=== PATIENT | male | born 1950 | race Caucasian/White ===

== ENCOUNTER 2016-06-14 16:41 | Observation (INO) ==
--- NOTE | 2016-06-14 17:16 | Emergency Department Note ---
Disposition Clinical Impression: Acute blood loss anemia, Hypotension due to blood loss Puncture wound of left upper extremity with complication Qualifiers: Encounter type: initial encounter Qualified Code(s): S41.132A - Puncture wound without foreign body of left upper arm, initial encounter Disposition: Admitted As Inpatient Condition: Good General Adult HPI - General Chief complaint: UC Nontraumatic Extremity Problem Stated complaint: left arm injury Time Seen by Provider: 06/14/16 17:12 Source: patient, EMS Limitations: no limitations - History of Present Illness HPI Narrative: 65-year-old male brought to the ED by EMS after falling from a pickup truck. He fell about 4 feet to the ground and a lawn aerator fell onto him puncturing his left posterior arm. Most of his pain is in the left posterior arm but also some pain in the lateral left chest. Denies any injury to his head. No abdominal pain. There was a small amount of blood loss at the scene. He denies any weakness or numbness of his arm. 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 Radiation: non-radiation Pain Severity: moderate Pain Scale: 4 Quality: stabbing Consistency: constant Improves with: nothing Worsens with: nothing Associated symptoms: Denies: confusion, chest pain, cough, diaphoresis, headaches, nausea/vomiting Treatments Prior to Arrival: none - Related Data Home Medications Medication Instructions Recorded Confirmed Aspirin 81 mg PO DAILY 10/02/14 06/15/16 Insulin Glargine,Hum.rec.anlog 20 - 40 unit SQ QAM PRN 10/02/14 06/15/16 [Lantus Solostar] Insulin Glargine,Hum.rec.anlog 45 - 50 unit SQ HS 10/02/14 06/15/16 [Lantus Solostar] Metformin [Glucophage] 1,000 mg PO BIDWM 10/02/14 06/15/16 Budesonide/Formoterol 160/4.5 2 puff IH BIDR PRN 07/30/15 06/15/16 [Symbicort 160/4.5] Furosemide [Lasix] 20 mg PO DAILY 08/10/15 06/15/16 Multivit-Min/FA/Lycopen/Lutein 1 each PO DAILY 08/10/15 06/15/16 [Centrum Silver Tablet] Naproxen Sodium [Aleve] 220 mg PO AD PRN 08/10/15 06/15/16 Niacin 100 mg PO DAILY 08/10/15 06/15/16 Ubidecarenone [Co Q10] 60 mg PO DAILY 08/10/15 06/15/16 Allergy Eye Drops BID 06/15/16 Cetirizine HCl [Zyrtec] 10 mg PO DAILY 06/15/16 06/15/16 Previous Rx's Medication Instructions Recorded Albuterol Sulfate [Albuterol 1 - 2 puff IH Q4HR PRN #1 12/15/14 Inhaler] hfa.aer.ad Prochlorperazine Maleate 10 mg PO Q6HR PRN #60 tablet 08/17/15 [Compazine] Guaifenesin/Codeine Phosphate 5 - 10 ml PO Q6H PRN #240 ml 02/12/16 [Guaifen-Codeine 100-10 mg/5 ml] Allergies Allergy/AdvReac Type Severity Reaction Status Date / Time MADHAVI Inhibitors Allergy Muscle Pain Verified 05/12/16 12:05 [id number]-Vdd-Utu Reductase Allergy Muscle Pain Verified 05/12/16 12:05 Inhibitor [Statins] All systems ED: reviewed and negative except as stated. Constitutional: Denies: fever Cardiovascular: Denies: palpitations Respiratory: Denies: cough, dyspnea Gastrointestinal: Denies: abdominal pain, nausea, vomiting Musculoskeletal: Denies: back pain Past Medical History - Past Medical History Attestation: Yes The following information was validated with the patient. Medical history: Reports: arthritis, coronary artery disease, diabetes Surgical history: Reports: appendectomy, pacemaker Psychiatric history: Reports: no psych history - Social History Smoking Status: Unknown if ever smoked Smokeless Tobacco Status: No Alcohol use: Reports: occasionally Drug use: Reports: none Physical Exam - General Limitations: no limitations General appearance: alert - Head Head exam: atraumatic, normocephalic - Eye Eye exam: Present: normal appearance - ENT ENT exam: normal exam, normal oropharynx - Neck Neck exam: Present: normal inspection - Chest Chest inspection: Present: normal inspection, symmetric chest wall rise - Respiratory Respiratory exam: Present: normal lung sounds bilaterally. Absent: respiratory distress - Cardiovascular Cardiovascular exam: Present: regular rate - Abdominal Exam Abdominal exam: Present: soft, Non-Tender, normal bowel sounds. Absent: tenderness - Extremities Exam Extremities exam: Present: other (Puncture wound to left upper posterior brachium which is actively bleeding. No palpable deformities. Distal pulses are brisk. Normal sensation throughout the forearm and hand.) - Back Exam Back exam: Present: normal inspection. Absent: tenderness, CVA tenderness (R), CVA tenderness (L) - Neurological Exam Neurological exam: Present: alert, oriented X3 - Psychiatric Psychiatric exam: Present: normal affect, normal mood - Skin Skin exam: Present: warm, dry Course - Reevaluation(s) Reevaluation #1: About 20 minutes after arrival patient became pale, slightly diaphoretic and became hypotensive. He maintained a paced rhythm of 70 during that time. Blood pressure improved with crystalloid infusion. Bleeding was controlled that time. Hemoglobin was checked and found to be 10.2 which is 2 g lower than it was 2 weeks ago. He was given additional IV fluids but still had additional episodes of brief hypotension. Follow-up hemoglobin about an hour and 40 minutes after the first and was down to 9.6. He has not had a third episode of hypotension so we will proceed with CT of his chest and abdomen to evaluate for further hemorrhagic issues. Patient adamantly believes that hypotension is secondary to the fact he had not eaten. Time: 21:24 Vital Signs Temperature 97.4 F L 06/14/16 16:43 Pulse Rate 79 06/14/16 16:43 Respiratory Rate 18 06/14/16 16:43 Blood Pressure 138/83 06/14/16 16:43 O2 Sat by Pulse Oximetry 96 06/14/16 16:43 Temperature 97.7 F 06/15/16 06:43 Pulse Rate 77 06/15/16 06:43 Respiratory Rate 18 06/15/16 06:43 Blood Pressure 117/66 06/15/16 06:43 O2 Sat by Pulse Oximetry 97 06/15/16 06:43 Oxygen Delivery Oxygen Delivery Nasal Cannula Medical Decision Making - Lab Data Result diagrams: 06/15/16 06:53 06/15/16 03:25 Lab Results 06/14/16 06/14/16 06/14/16 Range/Units 17:46 18:52 18:52 WBC 7.1 (4.3-11.1) K/mcL RBC 3.66 L (4.19-5.50) M/mcL Hgb 10.1 L (12.9-16.9) g/dL Hct 29.3 L (37.5-50.1) % MCV 80.1 L (83.0-100.0) fL MCH 27.6 L (28.0-33.3) pg MCHC 34.5 (31.6-35.5) g/dL RDW 12.9 (11.5-14.5) % Plt Count 156 (140-400) K/mcL MPV 8.7 L (9.4-12.4) fL Immature Gran % 0.8 (0-4) % Seg Neutrophils % 83.5 % Lymphocytes % 4.1 % Monocytes % 7.8 % Eosinophils % 3.4 % Basophils % 0.4 % Neutrophils # 5.9 (1.6-8.9) K/mcL Lymphocytes # 0.3 L (0.6-4.6) K/mcL Monocytes # 0.6 (0.0-1.3) K/mcL Eosinophils # 0.2 (0.0-0.6) K/mcL Basophils # 0.0 (0.0-0.2) K/mcL PT (9.4-12.1) Seconds INR APTT (26.0-36.0) Seconds Sodium (136-145) mEq/L Potassium (3.5-4.5) mEq/L Chloride (98-109) mEq/L Carbon Dioxide (19-29) mEq/L BUN (8-26) mg/dL Creatinine (0.72-1.25) mg/dL Est GFR ( Amer) (> 60) Est GFR (Non-Af Amer) (> 60) BUN/Creatinine Ratio (6-26) Glucose (70-99) mg/dL POC Glucose 248 H (58-89) Calculated Osmolality (280-300) Calcium (8.6-10.8) mg/dL Blood Type A NEGATIVE Antibody Screen NEGATIVE 06/14/16 06/14/16 06/14/16 Range/Units 18:52 18:52 20:29 WBC (4.3-11.1) K/mcL RBC (4.19-5.50) M/mcL Hgb 9.6 L (12.9-16.9) g/dL Hct 27.9 L (37.5-50.1) % MCV (83.0-100.0) fL MCH (28.0-33.3) pg MCHC (31.6-35.5) g/dL RDW (11.5-14.5) % Plt Count (140-400) K/mcL MPV (9.4-12.4) fL Immature Gran % (0-4) % Seg Neutrophils % % Lymphocytes % % Monocytes % % Eosinophils % % Basophils % % Neutrophils # (1.6-8.9) K/mcL Lymphocytes # (0.6-4.6) K/mcL Monocytes # (0.0-1.3) K/mcL Eosinophils # (0.0-0.6) K/mcL Basophils # (0.0-0.2) K/mcL PT 11.0 (9.4-12.1) Seconds INR 1.0 APTT 31.2 (26.0-36.0) Seconds Sodium 135 L (136-145) mEq/L Potassium 3.9 (3.5-4.5) mEq/L Chloride 102 (98-109) mEq/L Carbon Dioxide 24 (19-29) mEq/L BUN 20 (8-26) mg/dL Creatinine 1.03 (0.72-1.25) mg/dL Est GFR ( Amer) > 60 (> 60) Est GFR (Non-Af Amer) > 60 (> 60) BUN/Creatinine Ratio 19 (6-26) Glucose 209 H (70-99) mg/dL POC Glucose (58-89) Calculated Osmolality 289 (280-300) Calcium 8.5 L (8.6-10.8) mg/dL Blood Type Antibody Screen 06/14/16 Range/Units 21:28 WBC (4.3-11.1) K/mcL RBC (4.19-5.50) M/mcL Hgb (12.9-16.9) g/dL Hct (37.5-50.1) % MCV (83.0-100.0) fL MCH (28.0-33.3) pg MCHC (31.6-35.5) g/dL RDW (11.5-14.5) % Plt Count (140-400) K/mcL MPV (9.4-12.4) fL Immature Gran % (0-4) % Seg Neutrophils % % Lymphocytes % % Monocytes % % Eosinophils % % Basophils % % Neutrophils # (1.6-8.9) K/mcL Lymphocytes # (0.6-4.6) K/mcL Monocytes # (0.0-1.3) K/mcL Eosinophils # (0.0-0.6) K/mcL Basophils # (0.0-0.2) K/mcL PT (9.4-12.1) Seconds INR APTT (26.0-36.0) Seconds Sodium (136-145) mEq/L Potassium (3.5-4.5) mEq/L Chloride (98-109) mEq/L Carbon Dioxide (19-29) mEq/L BUN (8-26) mg/dL Creatinine (0.72-1.25) mg/dL Est GFR ( Amer) (> 60) Est GFR (Non-Af Amer) (> 60) BUN/Creatinine Ratio (6-26) Glucose (70-99) mg/dL POC Glucose 181 H (58-89) Calculated Osmolality (280-300) Calcium (8.6-10.8) mg/dL Blood Type Antibody Screen
[2016-06-14] MEDS ORDERED: *HR* HYDROcodone/Acet 5/325 mg TABLET PO ONE (17:22)
[2016-06-14] MEDS ORDERED: Tdap (ADACEL) Vaccine 0.5 ML IM ONE (17:26)
--- NOTE | 2016-06-14 18:17 | Emergency Department Note ---
Disposition Clinical Impression: Acute blood loss anemia, Hypotension due to blood loss Puncture wound of left upper extremity with complication Qualifiers: Encounter type: initial encounter Qualified Code(s): S41.132A - Puncture wound without foreign body of left upper arm, initial encounter Disposition: Admitted As Inpatient Condition: Good Time of Disposition: 22:03 Trauma HPI - General Chief Complaint: UC Nontraumatic Extremity Problem Stated Complaint: left arm injury Time Seen by Provider: 06/14/16 17:12 Source: patient, EMS Limitations: no limitations Nursing Notes Reviewed: Yes Vital Signs Reviewed: Yes - History of Present Illness HPI Narrative: Patient is a 65-year-old male who fell while getting out of a truck earlier today. Patient states that he from which spikes on a use for long care fell and rolled onto his left side causing a puncture wound to posterior shoulder/ proximal brachium area by 6 cm spike. 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 Home Medications Medication Instructions Recorded Confirmed Aspirin 81 mg PO DAILY 10/02/14 06/15/16 Insulin Glargine,Hum.rec.anlog 20 - 40 unit SQ QAM PRN 10/02/14 06/15/16 [Lantus Solostar] Insulin Glargine,Hum.rec.anlog 45 - 50 unit SQ HS 10/02/14 06/15/16 [Lantus Solostar] Metformin [Glucophage] 1,000 mg PO BIDWM 10/02/14 06/15/16 Budesonide/Formoterol 160/4.5 2 puff IH BIDR PRN 07/30/15 06/15/16 [Symbicort 160/4.5] Furosemide [Lasix] 20 mg PO DAILY 08/10/15 06/15/16 Multivit-Min/FA/Lycopen/Lutein 1 each PO DAILY 08/10/15 06/15/16 [Centrum Silver Tablet] Naproxen Sodium [Aleve] 220 mg PO AD PRN 08/10/15 06/15/16 Niacin 100 mg PO DAILY 08/10/15 06/15/16 Ubidecarenone [Co Q10] 60 mg PO DAILY 08/10/15 06/15/16 Allergy Eye Drops BID 06/15/16 Cetirizine HCl [Zyrtec] 10 mg PO DAILY 06/15/16 06/15/16 Previous Rx's Medication Instructions Recorded Albuterol Sulfate [Albuterol 1 - 2 puff IH Q4HR PRN #1 12/15/14 Inhaler] hfa.aer.ad Prochlorperazine Maleate 10 mg PO Q6HR PRN #60 tablet 08/17/15 [Compazine] Guaifenesin/Codeine Phosphate 5 - 10 ml PO Q6H PRN #240 ml 02/12/16 [Guaifen-Codeine 100-10 mg/5 ml] Allergies Allergy/AdvReac Type Severity Reaction Status Date / Time MADHAVI Inhibitors Allergy Muscle Pain Verified 05/12/16 12:05 [id number]-Pnz-Tdi Reductase Allergy Muscle Pain Verified 05/12/16 12:05 Inhibitor [Statins] All systems ED: reviewed and negative except as stated. Constitutional: Denies: fever, chills, weakness Eyes: Denies: vision change ENT ED: Denies: ear pain, congestion Cardiovascular: Reports: chest pain. Denies: palpitations Respiratory: Denies: cough, dyspnea, wheezes Gastrointestinal: Denies: abdominal pain, nausea, vomiting, diarrhea Genitourinary: Denies: urgency, frequency, hematuria Musculoskeletal: Denies: back pain Integumentary: Denies: rash Neurological: Denies: headache, weakness Psychiatric: Denies: anxiety Endocrine: Denies: fatigue Hematological/Lymphatic: Denies: easy bleeding Past Medical History - Past Medical History Attestation: Yes The following information was validated with the patient. Source: patient Medical history: Reports: arthritis, coronary artery disease, diabetes Surgical history: Reports: appendectomy, pacemaker Psychiatric history: Reports: no psych history - Social History Smoking Status: Unknown if ever smoked Smokeless Tobacco Status: No Alcohol use: Reports: occasionally Drug use: Reports: none Physical Exam Vital Signs Temperature 97.4 F L 06/14/16 16:43 Pulse Rate 79 06/14/16 16:43 Respiratory Rate 18 06/14/16 16:43 Blood Pressure 138/83 06/14/16 16:43 O2 Sat by Pulse Oximetry 96 06/14/16 16:43 Temperature 97.4 F L 06/14/16 16:43 Pulse Rate 71 06/14/16 21:38 Respiratory Rate 18 06/14/16 21:38 Blood Pressure 137/78 06/14/16 21:38 O2 Sat by Pulse Oximetry 98 06/14/16 21:38 Oxygen Delivery Oxygen Delivery Nasal Cannula -General Appearance: Patient is a 65-year-old male who is alert and oriented 3 in no acute distress. Patient has dried blood across his chest and left upper extremity from where he exsanguinated -Neurological exam: Cranial nerves II-12 intact, no focal deficits observed, strength equal 5/5 bilaterally in upper and lower extremities, cerebellar motion test negative. Negative loss of sensation - Head Head exam: atraumatic, normocephalic, normal inspection - Eye Eye exam: Present: normal appearance, PERRL, EOMI, negative for scleral icterus negative for conjunctival pallor - ENT ENT exam: normal exam, normal oropharynx, mucous membranes moist - Neck Neck exam: Present: normal inspection, full ROM, trachea midline, negative JVD - Chest Chest inspection: Present: Patient has bilateral equal rise and fall of chest wall. Tender to palpation along the l left midaxillary line and anterior to midaxillary line along the left chest wall - Respiratory Respiratory exam: Patient has mild rails to auscultation bilateral lower lung jones Cardiovascular Cardiovascular exam: Present: regular rate, normal rhythm, normal heart sounds, without murmurs rubs or gallops. - Abdominal Exam Abdominal exam: Present: soft, nondistended, Non-Tender light and deep palpation in all quadrants. Bowel sounds normoactive throughout all 4 quadrants. Negative for hyper or hyperresonance. - Extremities Exam Extremities exam: Present: normal inspection, full ROM patient has a 2.5 mm oval entry for puncture wound by a 6 cm spike into his posterior left upper brachia/deltoid area wound is very deep. - Back Exam Back exam: Present: normal inspection, full ROM. - Psychiatric Psychiatric exam: Present: normal affect, normal mood - Skin Skin exam: Present: warm, dry, intact, normal color - General Limitations: no limitations General appearance: alert Course - Reevaluation(s) Reevaluation #1: Patient is concerning for for pneumothorax, fractures, neurovascular damage, acute blood loss anemia X-rays will be taken of patient's shoulder, ribs, chest, hemostasis will be controlled with pressure dressings, wound will be inspected, irrigated Time: 17:22 Reevaluation #2: Placed pressure bandage on patient's wound Time: 18:17 Reevaluation #3: Patient appeared to have a vagal episode and a drop in blood pressure. IV normal saline bolus administered, CBC already drawn Time: 18:22 Additional Reevaluation(s): Patient's CT was unremarkable shows only a stable pleural effusion: Chest CTA 06/14/16 20:53 IMPRESSION: No evidence for acute traumatic injury to the chest, abdomen or pelvis. No evidence for aortic aneurysm or dissection. Stable large right pleural effusion. Stable perihilar soft tissue prominence, right more than left, which may be on the basis of posttreatment change. No discrete masses or pulmonary nodules identified. Attention can be paid on follow-up. Stable shotty mediastinal lymph nodes. No lymphadenopathy by CT measurement criteria. Current recommendation is to admit patient to hospital. Patient will be updated , patient does except admission, patient will be admitted to hospital for further evaluation and trending of immobility and hematocrit to monitor for further blood loss. Vital Signs Temperature 97.4 F L 06/14/16 16:43 Pulse Rate 79 06/14/16 16:43 Respiratory Rate 18 06/14/16 16:43 Blood Pressure 138/83 06/14/16 16:43 O2 Sat by Pulse Oximetry 96 06/14/16 16:43 Temperature 97.7 F 06/15/16 06:43 Pulse Rate 77 06/15/16 06:43 Respiratory Rate 18 06/15/16 06:43 Blood Pressure 117/66 06/15/16 06:43 O2 Sat by Pulse Oximetry 97 06/15/16 06:43 Oxygen Delivery Oxygen Delivery Nasal Cannula Procedures - Laceration Laceration 1 Site: upper extremity Side (If applicable): left Size (cm): 2 Description: other Depth: involves muscle layer Local Anesthetic: lidocaine 2% Amount of Anesthesia Used (mL): 8 Pre-repair: wound explored, irrigated extensively, wound margins revised Skin layer closed with: vicryl Size: 4-0 Number of sutures/angel: 2 Technique: simple, interrupted, horizontal mattress Trauma - Lab Data Lab results reviewed: Yes I reviewed the patient's lab results. Lab results narrative: Short CBC 06/14/16 06/14/16 Range/Units 20:29 18:52 WBC 7.1 (4.3-11.1) K/mcL Hgb 9.6 L 10.1 L (12.9-16.9) g/dL Hct 27.9 L 29.3 L (37.5-50.1) % Plt Count 156 (140-400) K/mcL Neutrophils # 5.9 (1.6-8.9) K/mcL Result diagrams: 06/15/16 06:53 06/15/16 03:25 Lab Results 06/14/16 06/14/16 06/14/16 Range/Units 17:46 18:52 18:52 WBC 7.1 (4.3-11.1) K/mcL RBC 3.66 L (4.19-5.50) M/mcL Hgb 10.1 L (12.9-16.9) g/dL Hct 29.3 L (37.5-50.1) % MCV 80.1 L (83.0-100.0) fL MCH 27.6 L (28.0-33.3) pg MCHC 34.5 (31.6-35.5) g/dL RDW 12.9 (11.5-14.5) % Plt Count 156 (140-400) K/mcL MPV 8.7 L (9.4-12.4) fL Immature Gran % 0.8 (0-4) % Seg Neutrophils % 83.5 % Lymphocytes % 4.1 % Monocytes % 7.8 % Eosinophils % 3.4 % Basophils % 0.4 % Neutrophils # 5.9 (1.6-8.9) K/mcL Lymphocytes # 0.3 L (0.6-4.6) K/mcL Monocytes # 0.6 (0.0-1.3) K/mcL Eosinophils # 0.2 (0.0-0.6) K/mcL Basophils # 0.0 (0.0-0.2) K/mcL PT (9.4-12.1) Seconds INR APTT (26.0-36.0) Seconds Sodium (136-145) mEq/L Potassium (3.5-4.5) mEq/L Chloride (98-109) mEq/L Carbon Dioxide (19-29) mEq/L BUN (8-26) mg/dL Creatinine (0.72-1.25) mg/dL Est GFR ( Amer) (> 60) Est GFR (Non-Af Amer) (> 60) BUN/Creatinine Ratio (6-26) Glucose (70-99) mg/dL POC Glucose 248 H (58-89) Calculated Osmolality (280-300) Calcium (8.6-10.8) mg/dL Blood Type A NEGATIVE Antibody Screen NEGATIVE 06/14/16 06/14/16 06/14/16 Range/Units 18:52 18:52 20:29 WBC (4.3-11.1) K/mcL RBC (4.19-5.50) M/mcL Hgb 9.6 L (12.9-16.9) g/dL Hct 27.9 L (37.5-50.1) % MCV (83.0-100.0) fL MCH (28.0-33.3) pg MCHC (31.6-35.5) g/dL RDW (11.5-14.5) % Plt Count (140-400) K/mcL MPV (9.4-12.4) fL Immature Gran % (0-4) % Seg Neutrophils % % Lymphocytes % % Monocytes % % Eosinophils % % Basophils % % Neutrophils # (1.6-8.9) K/mcL Lymphocytes # (0.6-4.6) K/mcL Monocytes # (0.0-1.3) K/mcL Eosinophils # (0.0-0.6) K/mcL Basophils # (0.0-0.2) K/mcL PT 11.0 (9.4-12.1) Seconds INR 1.0 APTT 31.2 (26.0-36.0) Seconds Sodium 135 L (136-145) mEq/L Potassium 3.9 (3.5-4.5) mEq/L Chloride 102 (98-109) mEq/L Carbon Dioxide 24 (19-29) mEq/L BUN 20 (8-26) mg/dL Creatinine 1.03 (0.72-1.25) mg/dL Est GFR ( Amer) > 60 (> 60) Est GFR (Non-Af Amer) > 60 (> 60) BUN/Creatinine Ratio 19 (6-26) Glucose 209 H (70-99) mg/dL POC Glucose (58-89) Calculated Osmolality 289 (280-300) Calcium 8.5 L (8.6-10.8) mg/dL Blood Type Antibody Screen 06/14/16 Range/Units 21:28 WBC (4.3-11.1) K/mcL RBC (4.19-5.50) M/mcL Hgb (12.9-16.9) g/dL Hct (37.5-50.1) % MCV (83.0-100.0) fL MCH (28.0-33.3) pg MCHC (31.6-35.5) g/dL RDW (11.5-14.5) % Plt Count (140-400) K/mcL MPV (9.4-12.4) fL Immature Gran % (0-4) % Seg Neutrophils % % Lymphocytes % % Monocytes % % Eosinophils % % Basophils % % Neutrophils # (1.6-8.9) K/mcL Lymphocytes # (0.6-4.6) K/mcL Monocytes # (0.0-1.3) K/mcL Eosinophils # (0.0-0.6) K/mcL Basophils # (0.0-0.2) K/mcL PT (9.4-12.1) Seconds INR APTT (26.0-36.0) Seconds Sodium (136-145) mEq/L Potassium (3.5-4.5) mEq/L Chloride (98-109) mEq/L Carbon Dioxide (19-29) mEq/L BUN (8-26) mg/dL Creatinine (0.72-1.25) mg/dL Est GFR ( Amer) (> 60) Est GFR (Non-Af Amer) (> 60) BUN/Creatinine Ratio (6-26) Glucose (70-99) mg/dL POC Glucose 181 H (58-89) Calculated Osmolality (280-300) Calcium (8.6-10.8) mg/dL Blood Type Antibody Screen - Radiology Data Radiology results reviewed: Yes I reviewed the patient's radiology results. Chest X-Ray 06/14/16 17:21 IMPRESSION: Overall stable findings including moderate to large right pleural effusion right mid and lower lung airspace disease. D/ / Fanny Arce Cha, MD / Fanny Arce Cha, MD Interpreting Provider: Fanny Arce Cha, MD Shoulder X-Ray 06/14/16 17:21 IMPRESSION: No acute abnormalities are seen. Stable mild degenerative changes to the AC joint. Diffuse bone demineralization. D/ / 06/14/2016 17:52:44 Ezekiel Griggs MD / kim Interpreting Provider: Ezekiel Griggs MD Thoracic Spine X-Ray 06/14/16 17:21 IMPRESSION: 1. No acute osseous abnormality of the thoracic spine identified. 2. Multilevel spondylosis. D/ / Nilo Muniz MD / Nilo Muniz MD Interpreting Provider: Nilo Muniz MD Abdomen/Pelvis CTA 06/14/16 20:53 IMPRESSION: No evidence for acute traumatic injury to the chest, abdomen or pelvis. No evidence for aortic aneurysm or dissection. Stable large right pleural effusion. Stable perihilar soft tissue prominence, right more than left, which may be on the basis of posttreatment change. No discrete masses or pulmonary nodules identified. Attention can be paid on follow-up. Stable shotty mediastinal lymph nodes. No lymphadenopathy by CT measurement criteria. D/ /14/2016 23:05:32 Ezekiel Griggs MD / kim Interpreting Provider: Ezekiel Griggs MD Chest CTA 06/14/16 20:53 IMPRESSION: No evidence for acute traumatic injury to the chest, abdomen or pelvis. No evidence for aortic aneurysm or dissection. Stable large right pleural effusion. Stable perihilar soft tissue prominence, right more than left, which may be on the basis of posttreatment change. No discrete masses or pulmonary nodules identified. Attention can be paid on follow-up. Stable shotty mediastinal lymph nodes. No lymphadenopathy by CT measurement criteria. D/ /14/2016 23:05:32 Ezekiel Griggs MD / kim Interpreting Provider: Ezekiel Griggs MD S.B.A.R. - S.B.A.RJuly Transition of Care: Chest the care to admit patient to hospital for further workup and trending of hemoglobin and hematocrits Situation: Demographics, MOA Background: Presenting Complaint, Relevant PMH, Meds, & Allergies Assessment: Vital Signs, Course and respsone to treatment, Exam Concerns, Patient/Family Expectation, Pertinant Lab Results, Outstanding Labs Recommendation: Barrier(s) to disposition, Recommendation based on pending studies, treatments, or consults Alisa Report Given to: Dr. Lili Cuellar Repor Time: 23:10 Attestation Statement - Attestation Attestation: I examined this patient and my medical decision-making was reviewed with the ALUM OPERATOR/PA/Advanced Practice Nurse/Resident Physician. I agree with the documented findings, disposition and treatment plan as described except to the extent set forth below.
[2016-06-14] MEDS ORDERED: 0.9 % Sodium Chloride 500 ML ONE (18:21)
[2016-06-14] MEDS ORDERED: 0.9 % Sodium Chloride 500 ML IVC ONE (18:22)
[2016-06-14] MEDS ORDERED: Ondansetron 4 MG/2 ML VIAL ONE (18:24)
[2016-06-14] MEDS ORDERED: 0.9 % Sodium Chloride 1,000 ML ONE (18:57)
[2016-06-14 19:03] LABS: Basophils % 0.4 %; Eosinophils # 0.2 K/mcL (0.0-0.6); Eosinophils % 3.4 %; Hematocrit 29.3 % (37.5-50.1); Hemoglobin 10.1 g/dL (12.9-16.9); Immature Granulocytes % 0.8 % (0-4); Lymphocytes # 0.3 K/mcL (0.6-4.6); Lymphocytes % 4.1 %; Mean Corpuscular HGB Conc 34.5 g/dL (31.6-35.5); Mean Corpuscular Hemoglobin 27.6 pg (28.0-33.3); Mean Corpuscular Volume 80.1 fL (83.0-100.0); Mean Platelet Volume 8.7 fL (9.4-12.4); Monocytes # 0.6 K/mcL (0.0-1.3); Monocytes % 7.8 %; Neutrophils # 5.9 K/mcL (1.6-8.9); Platelet Count 156 K/mcL (140-400); Red Blood Count 3.66 M/mcL (4.19-5.50); Red Cell Distribution Width 12.9 % (11.5-14.5); Segmented Neutrophils % 83.5 %
[2016-06-14] MEDS ORDERED: Lidocaine -MPF 2% 5 ML VIAL INFILT ONE (20:02)
[2016-06-14] MEDS ORDERED: 0.9 % Sodium Chloride 1,000 ML IVC ONE ×2 (20:04→20:51)
[2016-06-14 20:36] LABS: Hematocrit 27.9 % (37.5-50.1); Hemoglobin 9.6 g/dL (12.9-16.9)
[2016-06-14 23:26] LABS: Activated Partial Thrombo Time 31.2 Seconds (26.0-36.0); BUN/Creatinine Ratio 19 (6-26); Blood Urea Nitrogen 20 mg/dL (8-26); Calcium 8.5 mg/dL (8.6-10.8); Carbon Dioxide 24 mEq/L (19-29); Chloride 102 mEq/L (98-109); Glucose 209 mg/dL (70-99); Osmolality,Calculated 289 (280-300); Potassium 3.9 mEq/L (3.5-4.5); Sodium 135 mEq/L (136-145); eGFR For African Americans > 60 (> 60); eGFR For Non-African Americans > 60 (> 60)
[2016-06-15] MEDS ORDERED: *HR* HYDROcodone/Acet 5/325 mg TABLET PO ONE (00:40)
--- NOTE | 2016-06-15 00:41 | Emergency Department Note ---
Disposition Clinical Impression: Acute blood loss anemia, Hypotension due to blood loss Puncture wound of left upper extremity with complication Qualifiers: Encounter type: initial encounter Qualified Code(s): S41.132A - Puncture wound without foreign body of left upper arm, initial encounter Disposition: Admitted As Inpatient Condition: Good Time of Disposition: 00:45 General Adult HPI - General Chief complaint: UC Nontraumatic Extremity Problem Stated complaint: left arm injury Time Seen by Provider: 06/14/16 17:12 Source: patient, EMS Limitations: no limitations - History of Present Illness HPI Narrative: Please see prior providers documentation. For complete history and physical. Location: left Pain Scale: 7 Quality: stabbing Improves with: nothing Worsens with: nothing Associated symptoms: Denies: confusion, chest pain, cough, diaphoresis, headaches, nausea/vomiting Treatments Prior to Arrival: none - Related Data Home Medications Medication Instructions Recorded Confirmed Aspirin 81 mg PO DAILY 10/02/14 05/12/16 Insulin Glargine,Hum.rec.anlog 20 - 40 unit SQ QAM PRN 10/02/14 05/12/16 [Lantus Solostar] Insulin Glargine,Hum.rec.anlog 45 - 50 unit SQ HS 10/02/14 05/12/16 [Lantus Solostar] Metformin [Glucophage] 1,000 mg PO BIDWM 10/02/14 05/12/16 Budesonide/Formoterol 160/4.5 2 puff IH BIDR PRN 07/30/15 05/12/16 [Symbicort 160/4.5] Furosemide [Lasix] 20 mg PO DAILY 08/10/15 05/12/16 Multivit-Min/FA/Lycopen/Lutein 1 each PO DAILY 08/10/15 05/12/16 [Centrum Silver Tablet] Naproxen Sodium [Aleve] 220 mg PO AD PRN 08/10/15 05/12/16 Niacin 100 mg PO DAILY 08/10/15 05/12/16 Ubidecarenone [Co Q10] 60 mg PO DAILY 08/10/15 05/12/16 Previous Rx's Medication Instructions Recorded Albuterol Sulfate [Albuterol 1 - 2 puff IH Q4HR PRN #1 12/15/14 Inhaler] hfa.aer.ad Prochlorperazine Maleate 10 mg PO Q6HR PRN #60 tablet 08/17/15 [Compazine] Guaifenesin/Codeine Phosphate 5 - 10 ml PO Q6H PRN #240 ml 02/12/16 [Guaifen-Codeine 100-10 mg/5 ml] Allergies Allergy/AdvReac Type Severity Reaction Status Date / Time MADHAVI Inhibitors Allergy Muscle Pain Verified 05/12/16 12:05 Ryhkjlp-Qnk-Lxl Reductase Allergy Muscle Pain Verified 05/12/16 12:05 Inhibitor [Statins] Constitutional: Denies: fever, chills, weakness Eyes: Denies: vision change ENT ED: Denies: ear pain, congestion Cardiovascular: Reports: chest pain. Denies: palpitations Respiratory: Denies: cough, dyspnea, wheezes Gastrointestinal: Denies: abdominal pain, nausea, vomiting, diarrhea Genitourinary: Denies: urgency, frequency, hematuria Musculoskeletal: Denies: back pain Integumentary: Denies: rash Neurological: Denies: headache, weakness Psychiatric: Denies: anxiety Endocrine: Denies: fatigue Hematological/Lymphatic: Denies: easy bleeding Past Medical History - Past Medical History Medical history: Reports: arthritis, coronary artery disease, diabetes Surgical history: Reports: appendectomy, pacemaker Psychiatric history: Reports: no psych history - Social History Smoking Status: Unknown if ever smoked Smokeless Tobacco Status: No Alcohol use: Reports: occasionally Drug use: Reports: none Physical Exam - General Limitations: no limitations General appearance: alert Course Course Narrative: Patient seen and examined. Patient is in no acute distress. Patient will be admitted to the hospitalist service for trending hemoglobins. - Reevaluation(s) Reevaluation #1: Patient is in no acute distress. Time: 00:41 Vital Signs Temperature 97.4 F L 06/14/16 16:43 Pulse Rate 79 06/14/16 16:43 Respiratory Rate 18 06/14/16 16:43 Blood Pressure 138/83 06/14/16 16:43 O2 Sat by Pulse Oximetry 96 06/14/16 16:43 Temperature 97.4 F L 06/14/16 16:43 Pulse Rate 73 06/14/16 23:52 Respiratory Rate 18 06/15/16 01:09 Blood Pressure 109/58 06/15/16 01:09 O2 Sat by Pulse Oximetry 99 06/14/16 23:52 Oxygen Delivery Oxygen Delivery Nasal Cannula Medical Decision Making - [facility] Narrative Medical decision making narrative: 65-year-old male presents after a fall and subsequent puncture injury to his left arm. Patient's left arm was irrigated and dressed with the prior provider. No active bleeding. Patient's left arm is soft compartments. Patient has a bounding left radial pulse. Patient's neurovascularly intact. Patient had imaging of the left shoulder, chest and thoracic spine. Patient became hypotensive twice during his emergency department stay and responded with IV fluid hydration. Given the patient's hypotension during his emergency department stay as well as his recent acute loss and hemoglobin the patient will be admitted in the hospital service for further monitoring and trending H&H 's. Patient's had a CTA of the chest abdomen and pelvis was does not show any acute abnormality. Patient does have a large right pleural effusion which is unchanged. Patient does not show any signs of respiratory distress. Patient's tetanus was updated. - Lab Data Lab results reviewed: Yes I reviewed the patient's lab results. Result diagrams: 06/14/16 20:29 06/14/16 18:52 Lab Results 06/14/16 06/14/16 06/14/16 Range/Units 17:46 18:52 18:52 WBC 7.1 (4.3-11.1) K/mcL RBC 3.66 L (4.19-5.50) M/mcL Hgb 10.1 L (12.9-16.9) g/dL Hct 29.3 L (37.5-50.1) % MCV 80.1 L (83.0-100.0) fL MCH 27.6 L (28.0-33.3) pg MCHC 34.5 (31.6-35.5) g/dL RDW 12.9 (11.5-14.5) % Plt Count 156 (140-400) K/mcL MPV 8.7 L (9.4-12.4) fL Immature Gran % 0.8 (0-4) % Seg Neutrophils % 83.5 % Lymphocytes % 4.1 % Monocytes % 7.8 % Eosinophils % 3.4 % Basophils % 0.4 % Neutrophils # 5.9 (1.6-8.9) K/mcL Lymphocytes # 0.3 L (0.6-4.6) K/mcL Monocytes # 0.6 (0.0-1.3) K/mcL Eosinophils # 0.2 (0.0-0.6) K/mcL Basophils # 0.0 (0.0-0.2) K/mcL PT (9.4-12.1) Seconds INR APTT (26.0-36.0) Seconds Sodium (136-145) mEq/L Potassium (3.5-4.5) mEq/L Chloride (98-109) mEq/L Carbon Dioxide (19-29) mEq/L BUN (8-26) mg/dL Creatinine (0.72-1.25) mg/dL Est GFR ( Amer) (> 60) Est GFR (Non-Af Amer) (> 60) BUN/Creatinine Ratio (6-26) Glucose (70-99) mg/dL POC Glucose 248 H (58-89) Calculated Osmolality (280-300) Calcium (8.6-10.8) mg/dL Blood Type A NEGATIVE Antibody Screen NEGATIVE 06/14/16 06/14/16 06/14/16 Range/Units 18:52 18:52 20:29 WBC (4.3-11.1) K/mcL RBC (4.19-5.50) M/mcL Hgb 9.6 L (12.9-16.9) g/dL Hct 27.9 L (37.5-50.1) % MCV (83.0-100.0) fL MCH (28.0-33.3) pg MCHC (31.6-35.5) g/dL RDW (11.5-14.5) % Plt Count (140-400) K/mcL MPV (9.4-12.4) fL Immature Gran % (0-4) % Seg Neutrophils % % Lymphocytes % % Monocytes % % Eosinophils % % Basophils % % Neutrophils # (1.6-8.9) K/mcL Lymphocytes # (0.6-4.6) K/mcL Monocytes # (0.0-1.3) K/mcL Eosinophils # (0.0-0.6) K/mcL Basophils # (0.0-0.2) K/mcL PT 11.0 (9.4-12.1) Seconds INR 1.0 APTT 31.2 (26.0-36.0) Seconds Sodium 135 L (136-145) mEq/L Potassium 3.9 (3.5-4.5) mEq/L Chloride 102 (98-109) mEq/L Carbon Dioxide 24 (19-29) mEq/L BUN 20 (8-26) mg/dL Creatinine 1.03 (0.72-1.25) mg/dL Est GFR ( Amer) > 60 (> 60) Est GFR (Non-Af Amer) > 60 (> 60) BUN/Creatinine Ratio 19 (6-26) Glucose 209 H (70-99) mg/dL POC Glucose (58-89) Calculated Osmolality 289 (280-300) Calcium 8.5 L (8.6-10.8) mg/dL Blood Type Antibody Screen 06/14/16 Range/Units 21:28 WBC (4.3-11.1) K/mcL RBC (4.19-5.50) M/mcL Hgb (12.9-16.9) g/dL Hct (37.5-50.1) % MCV (83.0-100.0) fL MCH (28.0-33.3) pg MCHC (31.6-35.5) g/dL RDW (11.5-14.5) % Plt Count (140-400) K/mcL MPV (9.4-12.4) fL Immature Gran % (0-4) % Seg Neutrophils % % Lymphocytes % % Monocytes % % Eosinophils % % Basophils % % Neutrophils # (1.6-8.9) K/mcL Lymphocytes # (0.6-4.6) K/mcL Monocytes # (0.0-1.3) K/mcL Eosinophils # (0.0-0.6) K/mcL Basophils # (0.0-0.2) K/mcL PT (9.4-12.1) Seconds INR APTT (26.0-36.0) Seconds Sodium (136-145) mEq/L Potassium (3.5-4.5) mEq/L Chloride (98-109) mEq/L Carbon Dioxide (19-29) mEq/L BUN (8-26) mg/dL Creatinine (0.72-1.25) mg/dL Est GFR ( Amer) (> 60) Est GFR (Non-Af Amer) (> 60) BUN/Creatinine Ratio (6-26) Glucose (70-99) mg/dL POC Glucose 181 H (58-89) Calculated Osmolality (280-300) Calcium (8.6-10.8) mg/dL Blood Type Antibody Screen - Radiology Data Radiology results reviewed: Yes I reviewed the patient's radiology results. Chest X-Ray 06/14/16 17:21 IMPRESSION: Overall stable findings including moderate to large right pleural effusion right mid and lower lung airspace disease. D/ / Fanny Arce Cha, MD / Fanny Arce Cha, MD Interpreting Provider: Fanny Arce Cha, MD Shoulder X-Ray 06/14/16 17:21 IMPRESSION: No acute abnormalities are seen. Stable mild degenerative changes to the AC joint. Diffuse bone demineralization. D/ / 06/14/2016 17:52:44 Ezekiel Griggs MD / kim Interpreting Provider: Ezekiel Griggs MD Thoracic Spine X-Ray 06/14/16 17:21 IMPRESSION: 1. No acute osseous abnormality of the thoracic spine identified. 2. Multilevel spondylosis. D/ / Nilo Muniz MD / Nilo Muniz MD Interpreting Provider: Nilo Muniz MD Abdomen/Pelvis CTA 06/14/16 20:53 IMPRESSION: No evidence for acute traumatic injury to the chest, abdomen or pelvis. No evidence for aortic aneurysm or dissection. Stable large right pleural effusion. Stable perihilar soft tissue prominence, right more than left, which may be on the basis of posttreatment change. No discrete masses or pulmonary nodules identified. Attention can be paid on follow-up. Stable shotty mediastinal lymph nodes. No lymphadenopathy by CT measurement criteria. D/ / 06/14/2016 23:05:32 Ezekiel Griggs MD / kim Interpreting Provider: Ezekiel Griggs MD Chest CTA 06/14/16 20:53 IMPRESSION: No evidence for acute traumatic injury to the chest, abdomen or pelvis. No evidence for aortic aneurysm or dissection. Stable large right pleural effusion. Stable perihilar soft tissue prominence, right more than left, which may be on the basis of posttreatment change. No discrete masses or pulmonary nodules identified. Attention can be paid on follow-up. Stable shotty mediastinal lymph nodes. No lymphadenopathy by CT measurement criteria. D/ / 06/14/2016 23:05:32 Ezekiel Griggs MD / kim Interpreting Provider: Ezekiel Griggs MD S.BSarah - S.BJulyAKatherine Situation: Demographics Background: Presenting Complaint, Relevant PMH, Meds, & Allergies Assessment: Vital Signs, Course and respsone to treatment, Patient/Family Expectation, Pertinant Lab Results Recommendation: Barrier(s) to disposition, Recommendation based on pending studies, treatments, or consults S.[id number].RJuly Report Given to: Dr. Sebas Cuellar Repor Time: 00:41 Attestation Statement - Attestation Attestation: I, Fransisco Richard MD, personally evaluated this patient and discussed their management with the resident physician. I reviewed the resident's note and agree with the documented findings, medical decision making, and plan of care. This patient was signed out at shift change from Dr. Norwood and Dr. Crook. Please refer to their notes for complete details of history and physical examination. At shift change we are just awaiting the hospitalist to return call for admission. The hospitalist, Dr. Mullen, was consulted and accepted admission of the patient.
[2016-06-15] MEDS ORDERED: 0.9 % Sodium Chloride 1,000 ML IVC SCH (01:30)
[2016-06-15] MEDS ORDERED: Budesonide/Formoterol 160/4.5 MDI IH PRN (03:19)
--- NOTE | 2016-06-15 03:19 | Internal Med History&Physical ---
<Olga Davies - Last Filed: 06/15/16 04:17> Date of Encounter: 06/15/16 Time of Encounter: 02:00 Assessment and Plan (1) Microcytic anemia Current visit: Yes Status: Acute - Hgb 10.1 on initial presentation, which is a significant drop from 12.1 on . MCV 80. - Likely secondary to acute blood loss from the puncture injury of left upper arm but patient may also have other underlying causes such as iron deficiency or GI bleed. - Latest Hgb at 8.7. The continuous drop is likely dilutional given his WBC and platelet count also decreased as patient received 2L bolus and 125 cc/hr maintenance NS. - Will hold IV NS for now. - Check Iron panel and ferritin for possible underlying iron deficiency. - Check stool occult blood test to evaluate for possible GI blood loss. - Continue to monitor H&H closely. (2) Hypotension due to blood loss Current visit: Yes Status: Acute - BP as low as 81/54 in ED. - Responsive to IV fluid. - Improves as latest BP 143/74. - Okay to hold IV NS for now. - Closely monitor VS. (3) Puncture wound of left upper extremity with complication Current visit: Yes Status: Acute - Puncture wound by spike on yard roller. - Patient had received Tdap shot and suture in ED. - Continue to monitor for any potential bleeding/hematoma. Qualifiers: Encounter type: initial encounter Qualified Code(s): S41.132A - Puncture wound without foreign body of left upper arm, initial encounter (4) Diabetes mellitus Current visit: No Status: Chronic - Insulin sliding scale with routine glucose monitoring. - Diabetic diet. 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 - Per patient, he was told by oncology that he is in remission. - Stable right pleural effusion per chest imagings. Internal Medicine - H&P: HPI Chief complaint: left arm injury Admitted From: Emergency Dept Plans for Post Hospital Care: Home History of present illness: Mr. Vela is a 65 year old male with PMH of pulmonary MALT lymphoma s/p 5 cycles of chemo (last one in 01/2016) with stable right pleural effusion, DM and history of 3rd degree heart block current on pacemaker. Patient tripped while unloading yard roller from truck and landed on ground while the yard roller fell on his left upper arm resulting puncture wound by the spike on the yard roller. Patient reports potential loss of significant amount of blood at the scene. Patient was sent to [place] ED where patient got Tdap shoot with the wound cleaned and sutured. Patient was noted to have Hgb 10.1, which is a drop from 12.1 a week ago. Patient was also noted to have episodes of hypotension as low as 81/54 but responsive to IV NS. Patient received 2L IV NS bolus in ED and currently on 125 cc/hr. Of the encounter on the hospital floor, patient reports left upper arm pain and left chest wall muscle pain. Patient denies shortness of breath, lightheadedness, syncope, fever, chills, new numbness/tingling, focal weakness, hematochezia, melena, hematuria. Patient denies easily bleeding problem and his only blood thinner is baby aspirin. Patient reports last colonoscopy was more than 5 years with multiple polyps removed. Patient reports having scheduled appointment with his PCP Dr. Oliver next Thursday to discuss due colonoscopy. Patient is full code. Past Med Surg Social Fam HX - Past Medical History Medical history: arthritis, cancer (Pulmonary MALT lymphoma), coronary artery disease, diabetes Psychiatric history: no psych history - Past Surgical History Surgical History: appendectomy, pacemaker - Social History Smoking Status: Former smoker Smokeless Tobacco Status: No Alcohol use: occasionally Drug use: none - Family History Father Age: 49 Living Status: Hx Family Cancer: Yes (pancreatic ca) Mother Living Status: Age at : 94 Hx Family Cancer: Yes (colon ca) Hx Family Endocrine Disorder: Yes (diabetes) Sister Living Status: Still Living Hx Family Endocrine Disorder: Yes (dm) Hx Family Musculoskeletal Disorders: Yes (knee and hip replacement) Brother Age: 65 Living Status: Still Living Hx Family Cardiac Disorders: Yes (open heart surgery) Hx Family HEENT Disorders: Yes (ringing in ears) Internal Medicine - H&P: Meds Aspirin 81 mg PO DAILY 10/02/14 [History] Insulin Glargine,Hum.rec.anlog [Lantus Solostar] 20 - 40 unit SQ QAM PRN [History] Insulin Glargine,Hum.rec.anlog [Lantus Solostar] 45 - 50 unit SQ HS 10/02/14 [ History] Metformin [Glucophage] 1,000 mg PO BIDWM 10/02/14 [History] Albuterol Sulfate [Albuterol Inhaler] 1 - 2 puff IH Q4HR PRN #1 hfa.aer.ad 12/15 [Rx] Budesonide/Formoterol 160/4.5 [Symbicort 160/4.5] 2 puff IH BIDR PRN 07/30/15 [ History] Furosemide [Lasix] 20 mg PO DAILY 08/10/15 [History] Multivit-Min/FA/Lycopen/Lutein [Centrum Silver Tablet] 1 each PO DAILY 08/10/15 [History] Naproxen Sodium [Aleve] 220 mg PO AD PRN 08/10/15 [History] Niacin 100 mg PO DAILY 08/10/15 [History] Ubidecarenone [Co Q10] 60 mg PO DAILY 08/10/15 [History] Prochlorperazine Maleate [Compazine] 10 mg PO Q6HR PRN #60 tablet 08/17/15 [Rx] Guaifenesin/Codeine Phosphate [Guaifen-Codeine 100-10 mg/5 ml] 5 - 10 ml PO Q6H PRN #240 ml 02/12/16 [Rx] Allergy Eye Drops BID 06/15/16 [History] Cetirizine HCl [Zyrtec] 10 mg PO DAILY 06/15/16 [History] Allergies MADHAVI Inhibitors Allergy (Verified 05/12/16 12:05) Muscle Pain Izxnvom-Flb-Fbi Reductase Inhibitor [Statins] Allergy (Verified 05/12/16 12:05) Muscle Pain All Systems PM: A 10-system review of systems was performed and is negative for pertinent findings except as documented above in the HPI. - Constitutional Constitutional: no anorexia, no chills, no fever(s) - EENT Eyes: no change in vision Ears: no decreased hearing Nose, mouth and throat: no dysphagia, no odynophagia - Cardiovascular Cardiovascular ROS IM: edema (Chronic bilateral lower extremity edema), no chest pain, no lightheadedness, no syncope - Respiratory Respiratory: no cough, no dyspnea, no hemoptysis - Gastrointestinal Gastrointestinal: nausea (Earlier in ED), no diarrhea, no hematochezia, no melena, no vomiting - Genitourinary Genitourinary ROS male: no difficulty urinating, no dysuria, no hematuria - Musculoskeletal Musculoskeletal ROS IM: as per HPI - Integumentary Integumentary IM: no pruritus, no rash - Neurological Neurological ROS: no focal weakness, no numbness, no tingling - Hematologic/Lymphatic Hematologic/Lymphatic: no easy bleeding, no easy bruising - Constitutional Vitals: Temp Pulse Resp BP Pulse Ox 98.0 F 73 18 143/74 97 06/15/16 02:00 06/15/16 02:00 06/15/16 02:00 06/15/16 02:00 06/15/16 02:00 General appearance: Present: cooperative, A&O X 3, no acute distress, answers questions appropriately - Head Head exam: Present: atraumatic, normocephalic - Eye Eye exam: Present: EOMI, PERRL, conjuntiva pink, sclera anicteric - Neck Neck exam general surgery: Present: supple, trachea midline. Absent: lymphadenopathy - Respiratory Respiratory exam: Present: CTAB. Absent: accessory muscle use, rales, rhonchi, wheezes - Cardiovascular Cardiovascular exam: Present: RRR, +S1, +S2. Absent: diastolic murmur, gallop, rubs, systolic murmur - GI/Abdominal GI/Abdominal exam: Present: normal bowel sounds, soft, no peritoneal signs. Absent: distended, tenderness - Extremities Exam Extremities exam: Present: warm, radial pulses palpable and symetrical. Absent : calf tenderness, cyanotic Additional comments: Moderate bilateral lower extremity non-pitting edema. - Neurological Exam Neurological exam: Present: CN II-XII intact, oriented X3, no focal deficits. Absent: pronater drift, facial droop, speech deficit - Skin Skin exam: Present: dry Additional comments: Puncture wound s/p suture on lateral proximal upper arm covered with few residual blood clot. No active bleeding. No palpable hematoma underneath. Internal Med - H&P Results - Labs CBC & Chem 7: 06/15/16 03:25 06/15/16 03:25 Labs: Short CBC 06/15/16 06/14/16 06/14/16 Range/Units 03:25 20:29 18:52 WBC 5.5 7.1 (4.3-11.1) K/mcL Hgb 8.7 L 9.6 L 10.1 L (12.9-16.9) g/dL Hct 25.3 L 27.9 L 29.3 L (37.5-50.1) % Plt Count 134 L 156 (140-400) K/mcL Neutrophils # 4.4 5.9 (1.6-8.9) K/mcL BMP 06/15/16 06/14/16 Range/Units 03:25 18:52 Sodium 137 135 L (136-145) mEq/L Potassium 3.9 3.9 (3.5-4.5) mEq/L Chloride 107 102 (98-109) mEq/L Carbon Dioxide 25 24 (19-29) mEq/L BUN 17 20 (8-26) mg/dL Creatinine 0.97 1.03 (0.72-1.25) mg/dL Glucose 175 H 209 H (70-99) mg/dL Calcium 8.0 L 8.5 L (8.6-10.8) mg/dL - Impressions ITS Impressions Chest X-Ray 06/14/16 17:21 IMPRESSION: Overall stable findings including moderate to large right pleural effusion right mid and lower lung airspace disease. D/ / Fanny Arce Cha, MD / Fanny Arce Cha, MD Interpreting Provider: Fanny Arce Cha, MD Shoulder X-Ray 06/14/16 17:21 IMPRESSION: No acute abnormalities are seen. Stable mild degenerative changes to the AC joint. Diffuse bone demineralization. D/ / 06/14/2016 17:52:44 Ezekiel Griggs MD / kim Interpreting Provider: Ezekiel Griggs MD Thoracic Spine X-Ray 06/14/16 17:21 IMPRESSION: 1. No acute osseous abnormality of the thoracic spine identified. 2. Multilevel spondylosis. D/ / Nilo Muniz MD / Nilo Muniz MD Interpreting Provider: Nilo Muniz MD Abdomen/Pelvis CTA 06/14/16 20:53 IMPRESSION: No evidence for acute traumatic injury to the chest, abdomen or pelvis. No evidence for aortic aneurysm or dissection. Stable large right pleural effusion. Stable perihilar soft tissue prominence, right more than left, which may be on the basis of posttreatment change. No discrete masses or pulmonary nodules identified. Attention can be paid on follow-up. Stable shotty mediastinal lymph nodes. No lymphadenopathy by CT measurement criteria. D/ / 06/14/2016 23:05:32 Ezekiel Griggs MD / kim Interpreting Provider: Ezekiel Griggs MD Chest CTA 06/14/16 20:53 IMPRESSION: No evidence for acute traumatic injury to the chest, abdomen or pelvis. No evidence for aortic aneurysm or dissection. Stable large right pleural effusion. Stable perihilar soft tissue prominence, right more than left, which may be on the basis of posttreatment change. No discrete masses or pulmonary nodules identified. Attention can be paid on follow-up. Stable shotty mediastinal lymph nodes. No lymphadenopathy by CT measurement criteria. D/ / 06/14/2016 23:05:32 Ezekiel Griggs MD / kim Interpreting Provider: Ezekiel Griggs MD <Neal Mullen R - Last Filed: 06/15/16 09:49> Date of Encounter: 06/15/16 Internal Medicine - H&P: HPI History of present illness: Mr. Vela is a 65 year old male All Systems PM: A 10-system review of systems was performed and is negative for pertinent findings except as documented above in the HPI. - Constitutional Vitals: Temp Pulse Resp BP Pulse Ox 97.7 F 77 18 117/66 97 06/15/16 06:43 06/15/16 06:43 06/15/16 06:43 06/15/16 06:43 06/15/16 06:43 Internal Med - H&P Results - Labs CBC & Chem 7: 06/15/16 06:53 06/15/16 03:25 Labs: Short CBC 06/15/16 06/15/16 Range/Units 03:25 06:53 WBC 5.5 5.2 (4.3-11.1) K/mcL Hgb 8.7 L 8.5 L (12.9-16.9) g/dL Hct 25.3 L 24.9 L (37.5-50.1) % Plt Count 134 L 141 (140-400) K/mcL Neutrophils # 4.4 4.2 (1.6-8.9) K/mcL BMP 06/15/16 03:25 Sodium 137 Potassium 3.9 Chloride 107 Carbon Dioxide 25 BUN 17 Creatinine 0.97 Glucose 175 H Calcium 8.0 L - Attending Attestation I performed history and physical examination of the patient and discussed management with the Resident. I reviewed the Residents note and agree with documented findings and plan of care. Known h/o Pulmonary MALT, right pleural effusion, DM present after fall and puncture wound to the left arm. He apparently had significant blood loss due to the injury. He was evaluated in the ER and was noted to have hemoglobin of 10.1 and 9.6. CTA chest and abdomen was done in the ER no acute traumatic injury reported. He is admitted to the hospitalist service to monitor Hemoglobin and hematocrit. O/E: alert and oriented. Puncture wound to the lateral left arm. Tenderness on the lateral left chest. Lungs: CTA. Cardiac: RRR Reviewed the results of imaging stable right pleural effusion. A/P: Microcytic anemia / Acute blood loss anemia: Drop in Hemoglobin could be related to the bleeding related to his injury. Further drop could be due to hemodilution from IV fluids. Monitor H&H. Check fecal occult blood.
[2016-06-15 03:32] LABS: Basophils % 0.2 %; Eosinophils # 0.2 K/mcL (0.0-0.6); Eosinophils % 3.7 %; Hematocrit 25.3 % (37.5-50.1); Hemoglobin 8.7 g/dL (12.9-16.9); Immature Granulocytes % 0.7 % (0-4); Lymphocytes # 0.3 K/mcL (0.6-4.6); Lymphocytes % 5.3 %; Mean Corpuscular HGB Conc 34.4 g/dL (31.6-35.5); Mean Corpuscular Hemoglobin 27.4 pg (28.0-33.3); Mean Corpuscular Volume 79.8 fL (83.0-100.0); Mean Platelet Volume 8.3 fL (9.4-12.4); Monocytes # 0.5 K/mcL (0.0-1.3); Monocytes % 9.9 %; Neutrophils # 4.4 K/mcL (1.6-8.9); Platelet Count 134 K/mcL (140-400); Red Blood Count 3.17 M/mcL (4.19-5.50); Segmented Neutrophils % 80.2 %
[2016-06-15 03:43] LABS: BUN/Creatinine Ratio 18 (6-26); Blood Urea Nitrogen 17 mg/dL (8-26); Carbon Dioxide 25 mEq/L (19-29); Chloride 107 mEq/L (98-109); Glucose 175 mg/dL (70-99); Osmolality,Calculated 290 (280-300); Potassium 3.9 mEq/L (3.5-4.5); Sodium 137 mEq/L (136-145); eGFR For African Americans > 60 (> 60); eGFR For Non-African Americans > 60 (> 60)
[2016-06-15] MEDS ORDERED: D5% in Water 1,000 ML IVC PRN (03:44)
[2016-06-15] MEDS ORDERED: *HR* Dextrose 50 % in Water (Syg) 50 ML SYRINGE IVP PRN (03:44)
[2016-06-15] MEDS ORDERED: Dextrose Gel 15 GM PO PRN ×2 (03:44)
[2016-06-15 03:58] LABS: % Iron Saturation 14 % (20-55); Iron 36 mcg/dL (65-175); Transferrin 178 mg/dL (174-364)
[2016-06-15 04:18] LABS: Ferritin 118 ng/ml (22-275)
[2016-06-15 07:10] LABS: Basophils % 0.4 %; Eosinophils # 0.2 K/mcL (0.0-0.6); Eosinophils % 3.9 %; Hematocrit 24.9 % (37.5-50.1); Hemoglobin 8.5 g/dL (12.9-16.9); Immature Granulocytes % 0.6 % (0-4); Lymphocytes # 0.2 K/mcL (0.6-4.6); Lymphocytes % 4.5 %; Mean Corpuscular HGB Conc 34.1 g/dL (31.6-35.5); Mean Corpuscular Hemoglobin 27.4 pg (28.0-33.3); Mean Corpuscular Volume 80.3 fL (83.0-100.0); Mean Platelet Volume 8.7 fL (9.4-12.4); Monocytes # 0.5 K/mcL (0.0-1.3); Monocytes % 9.7 %; Neutrophils # 4.2 K/mcL (1.6-8.9); Platelet Count 141 K/mcL (140-400); Red Cell Distribution Width 13.1 % (11.5-14.5); Segmented Neutrophils % 80.9 %
[2016-06-15] MEDS: Furosemide 20 MG TABLET PO SCH (07:46)
[2016-06-15] MEDS: Insulin LISPRO 300 UNITS/3 ML VIAL SQ SCH ×3 (07:46→16:28)
[2016-06-15] MEDS: Acetaminophen 325 MG TABLET PO PRN ×3 (08:04→22:35)
--- NOTE | 2016-06-15 17:24 | Internal Med Progress Note ---
Date of Encounter: 06/15/16 Time of Encounter: 09:10 - Assessment and plan (1) Microcytic anemia Current Visit: Yes Status: Acute Assessment and plan: Hemoglobin 8.5 this morning. IV fluids have been stopped and nurse reports that bleeding has been controlled from puncture wound arm. Initial hemoglobin on arrival was 10.1. Patient did get 2 L of 0.9 bolus in the emergency department and patient states that he lost a good amount of blood at home after the accident. I have ordered a stat H&H since the last one was at 6:30 this morning. We will repeat labs in the morning. Iron low at 36 and percent saturation is also low at 14 Ferritin is normal at 118. MCV is 80.3 CBC in morning and reassess Transfuse PRBCs if hemoglobin around 7.. Type and screen is complete. Iron supplementation if indicated after lab draws in the morning. 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 Per patient he said he is in remission He has stable right pleural effusion per chest x-ray on admission. (3) Puncture wound of left upper extremity with complication Current Visit: Yes Status: Acute Assessment and plan: Patient states that he was unloading an aerator with spikes from the back of his truck yesterday. He said that he jumped down from the bed of his truck onto a stool, the stool slipped, the spikes fell off the ramp, bounced off him and into his arm. The bleeding is controlled from the site. There is no foul-smelling drainage or redness. Patient had a tetanus injection in the emergency department, as well as suture closure. Patient reports that the entire left side of his body is sore, making it hard for him to move in the bed. Continue to monitor site and bleeding. Replace fluids and electrolytes as needed. Watch for signs of infection. Qualifiers: Encounter type: initial encounter Qualified Code(s): S41.132A - Puncture wound without foreign body of left upper arm, initial encounter (4) IDDM (insulin dependent diabetes mellitus) Current Visit: No Status: Chronic Assessment and plan: A1c is 9.5 this month. Accu-Cheks have been around 200. Diabetic diet Sliding-scale insulin Hypoglycemia protocol Accu-Cheks before meals at bedtime Continue medications at home. (5) Acute blood loss anemia Current Visit: Yes Status: Acute Assessment and plan: Plan as above (6) Hypotension due to blood loss Current Visit: Yes Status: Resolved Assessment and plan: Blood pressure stable at this time. - Time Spent With Patient less than 15 minutes - Subjective Interval history: Patient states that he was attempting to unload a large yard aerator with approximately 6-7 inch sharp spikes from the back of his truck. He reports that he jumped from the tailgate of his truck onto a small stool that flipped, causing the aerator to fall off the ramp that he was moving it with. He states that it bounced on the ground and one of the spikes stuck into his left posterior arm. He said that he was unable to get up due to the pain he said that the spike was not stuck in his arm. He reports losing a significant amount of blood at home before the squad to get their. He said that he was lying next to his truck and it was hot in the sunshine and he had to get an umbrella to cover him see the note of a sunburn. Today patient reports that he has having a lot of pain and was unable to move. I did encourage him to try to get up and move as much as he could inside the room. He said Tylenol is helping with the pain he does not appear to have any bruising however his left anterior ribs are tender to palpation on his x-rays from the emergency department were negative when I was in the room the nurse just change the bandage and the new bandage did not have any drainage on it right now at almost 6 PM she reports that the bleeding has stopped. Patient's hemoglobin has dropped since arrival. Unsure if it is delusional from the large amount of IV fluids and patient got in the emergency department or if it is from blood loss. MCV is 80.3. His iron and percent saturation are low, ferritin is within normal limits. I do not a stat hemoglobin and hematocrit which has not been drawn yet I also will reassess again in the morning. - Constitutional Vitals: Temp Pulse Resp BP Pulse Ox 98.4 F 81 18 110/63 82 06/15/16 15:20 06/15/16 15:20 06/15/16 15:20 06/15/16 15:20 06/15/16 15:20 General appearance: Present: cooperative, A&O X 3, no acute distress, answers questions appropriately - Head Head exam: Present: normal inspection - Eye Eye exam: Present: normal appearance, conjuntiva pink - ENT ENT exam: Present: mucous membranes moist, normal exam - Neck Neck exam general surgery: Present: normal inspection. Absent: lymphadenopathy , tenderness - Respiratory Respiratory exam: Present: chest wall tenderness, decreased breath sounds. Absent: rales, rhonchi, stridor, wheezes Additional comments: dimished due to pain with inspiration from fall. - Cardiovascular Cardiovascular exam: Present: RRR, +S1, +S2. Absent: diastolic murmur, systolic murmur - GI/Abdominal GI/Abdominal exam: Present: normal bowel sounds, soft. Absent: distended, firm , tenderness - Extremities Exam Extremities exam: Present: normal inspection, warm, radial pulses palpable and symetrical. Absent: calf tenderness, pedal edema, tenderness - Incison Incision: Present: draining, clean and dry, erythema, serosanguinous, open - Neurological Exam Neurological exam: Present: alert, oriented X3, no focal deficits. Absent: motor sensory deficit, strengths equal and symetr throughout, facial droop, speech deficit Internal Medicine: Result - Labs CBC & Chem 7: 06/15/16 06:53 06/15/16 03:25 Labs: Short CBC 06/15/16 06/15/16 Range/Units 03:25 06:53 WBC 5.5 5.2 (4.3-11.1) K/mcL Hgb 8.7 L 8.5 L (12.9-16.9) g/dL Hct 25.3 L 24.9 L (37.5-50.1) % Plt Count 134 L 141 (140-400) K/mcL Neutrophils # 4.4 4.2 (1.6-8.9) K/mcL BMP 06/15/16 03:25 Sodium 137 Potassium 3.9 Chloride 107 Carbon Dioxide 25 BUN 17 Creatinine 0.97 Glucose 175 H Calcium 8.0 L - ABG Interpretation ABG results: PT/INR, D-dimer PT 11.0 Seconds (9.4-12.1) 06/14/16 18:52 - VTE Reasons for not Prescribing Prophylaxis: Treatment not Indicated - Low risk for VTE Consult Discharge Plan - Plan Referrals: Mason Oliver Jr, MD [Primary Care Provider] -
[2016-06-15 18:29] LABS: Hematocrit 25.3 % (37.5-50.1); Hemoglobin 8.5 g/dL (12.9-16.9)
[2016-06-15] MEDS ORDERED: Insulin LISPRO 300 UNITS/3 ML VIAL SQ SCH (21:00)
[2016-06-16 06:15] LABS: Basophils % 0.4 %; Eosinophils # 0.3 K/mcL (0.0-0.6); Eosinophils % 6.9 %; Hematocrit 26.3 % (37.5-50.1); Immature Granulocytes % 0.6 % (0-4); Lymphocytes # 0.5 K/mcL (0.6-4.6); Lymphocytes % 9.4 %; Mean Corpuscular HGB Conc 34.2 g/dL (31.6-35.5); Mean Corpuscular Hemoglobin 27.6 pg (28.0-33.3); Mean Corpuscular Volume 80.7 fL (83.0-100.0); Mean Platelet Volume 9.2 fL (9.4-12.4); Monocytes # 0.4 K/mcL (0.0-1.3); Monocytes % 9.1 %; Neutrophils # 3.5 K/mcL (1.6-8.9); Platelet Count 161 K/mcL (140-400); Red Blood Count 3.26 M/mcL (4.19-5.50); Red Cell Distribution Width 13.2 % (11.5-14.5); Segmented Neutrophils % 73.6 %
[2016-06-16 06:30] LABS: BUN/Creatinine Ratio 12 (6-26); Blood Urea Nitrogen 14 mg/dL (8-26); Calcium 8.9 mg/dL (8.6-10.8); Carbon Dioxide 26 mEq/L (19-29); Chloride 106 mEq/L (98-109); Glucose 163 mg/dL (70-99); Osmolality,Calculated 292 (280-300); Potassium 3.9 mEq/L (3.5-4.5); Sodium 139 mEq/L (136-145); eGFR For African Americans > 60 (> 60); eGFR For Non-African Americans > 60 (> 60)
[2016-06-16] MEDS: Furosemide 20 MG TABLET PO SCH (09:07)
[2016-06-16] MEDS: Insulin LISPRO 300 UNITS/3 ML VIAL SQ SCH ×2 (09:07→12:44)
[2016-06-16 10:31] VITALS: BP 127/71
[2016-06-16 10:45] LABS: % Iron Saturation 12 % (20-55); Iron 31 mcg/dL (65-175); Transferrin 184 mg/dL (174-364)
--- NOTE | 2016-06-16 14:18 | Discharge Summary ---
Date of Encounter: 06/16/16 Time of Encounter: 08:50 - Discharge Diagnosis (1) Puncture wound of left upper extremity with complication Priority: Primary Status: Acute Comments: Patient was attempting to move a heavy aerator from the bed of his truck, he jumped from the tailgate to a stool that was on the ground. The stool flipped and the aerator bounced off the ramp he was using to move it, bounced on the ground near him puncturing his left posterior forearm with one of the approximately 10 inch sharp metal spikes. Patient reports that he lost a lot of blood at home. He is brought to the emergency department where his wound was evaluated cleaned and sutured. He was given at least 2 L of normal saline. The wound is not bleeding at this time and does not appear to be infected. Patient is having a lot of upper body pain due to this accident. He says the pain is "intense". He refused a nonnarcotic pain medication prescription and says that Tylenol is working well for him. All x-rays from the emergency department involving this event were negative. Qualifiers: Encounter type: initial encounter Qualified Code(s): S41.132A - Puncture wound without foreign body of left upper arm, initial encounter (2) Microcytic anemia Priority: Secondary Status: Acute Comments: Patient arrived in the emergency department with a hemoglobin of 10.1. Yesterday hemoglobin was 8.5. We stopped his IV fluids due to possible dilution. Today hemoglobin was 9.0. MCV is 80.7 .Iron is 31 and percent saturation is 12. Ferritin is 118. Stool is negative for blood. I spoke with hematology oncology nurse practitioner who recommends that patient follow-up outpatient for evaluation of anemia. I will start patient on iron supplementation. We discussed the side effects of the iron. We will also send home with a prescription for Colace. (3) Mucosa-associated lymphoid tissue (MALT) lymphoma Priority: Secondary Status: Chronic Comments: Pulmonary MALT lymphoma. 5 cycles of chemotherapy. He recently followed up with oncology and is not scheduled to see them again for 2-3 months. He has a stable right pleural effusion per chest CTA. (4) IDDM (insulin dependent diabetes mellitus) Priority: Secondary Status: Chronic Comments: Glucose has been slightly elevated since admission. A1c is 9.5%. Patient states that he has been scheduled outpatient for diabetes education and he has never received a phone call. I will plan another consultation. Continue medications at home. (5) Acute blood loss anemia Priority: Secondary Status: Acute Comments: Plan as above (6) Hypotension due to blood loss Priority: Secondary Status: Resolved - Discharge Medications Prescriptions: Docusate [Colace] 100 mg PO DAILY PRN #30 capsule PRN Reason: Constipation Ferrous Sulfate 325 mg PO DAILY #30 tablet.dr Home Medications: Aspirin 81 mg PO DAILY 10/02/14 [History] Insulin Glargine,Hum.rec.anlog [Lantus Solostar] 20 - 40 unit SQ QAM PRN [History] Insulin Glargine,Hum.rec.anlog [Lantus Solostar] 45 - 50 unit SQ HS 10/02/14 [ History] Metformin [Glucophage] 1,000 mg PO BIDWM 10/02/14 [History] Albuterol Sulfate [Albuterol Inhaler] 1 - 2 puff IH Q4HR PRN #1 hfa.aer.ad 12/15 [Rx] Budesonide/Formoterol 160/4.5 [Symbicort 160/4.5] 2 puff IH BIDR PRN 07/30/15 [ History] Furosemide [Lasix] 40 mg PO DAILY 08/10/15 [History] Multivit-Min/FA/Lycopen/Lutein [Centrum Silver Tablet] 1 tab PO DAILY 08/10/15 [ History] Naproxen Sodium [Aleve] 220 mg PO AD PRN 08/10/15 [History] Niacin 100 mg PO DAILY 08/10/15 [History] Ubidecarenone [Co Q10] 60 mg PO DAILY 08/10/15 [History] Prochlorperazine Maleate [Compazine] 10 mg PO Q6HR PRN #60 tablet 08/17/15 [Rx] Guaifenesin/Codeine Phosphate [Guaifen-Codeine 100-10 mg/5 ml] 5 - 10 ml PO Q6H PRN #240 ml 02/12/16 [Rx] Cetirizine HCl [Zyrtec] 10 mg PO DAILY 06/15/16 [History] Ketotifen Fumarate [Zaditor] 1 drop OP BID 06/15/16 [History] Docusate [Colace] 100 mg PO DAILY PRN #30 capsule 06/16/16 [Rx] Ferrous Sulfate 325 mg PO DAILY #30 tablet. 06/16/16 [Rx] Allergies/Adverse Reactions: Allergies MADHAVI Inhibitors Allergy (Verified 05/12/16 12:05) Muscle Pain [id number]-Khp Reductase Inhibitor [Statins] Allergy (Verified 05/12/16 12:05) Muscle Pain Date of admission: 06/15/16 00:53 Primary care physician: Mason Oliver Jr, MD Consults: 06/16/16 12:35 Consult to Occupational Therapy [CONS] Routine Comment: Evaluate, develop and implement POC Consult to Physical Therapy [CONS] Routine Comment: Evaluate, develop and implement POC Discharging clinician: Rachel Fonseca Anticipated date of discharge: 06/16/16 - Patient Status Disposition: Home, Self-Care Functional capacity at discharge: independent ambulation Overall status at discharge: patient is progressing back to baseline - Ambulatory Orders Ambulatory Orders: Consult to Senior It Assistant [CONS] Time Frame: 1 Week, Facility: [facility], Location: [facility] - Discharge Instructions Instructions: Iron Rich Diet (DC), Anemia (DC) Follow Up With: Janey Nelson CNP [Partnered Physician] - 06/23/16 10:30 am () Paulina Amador MD [Partnered Physician] - 06/17/16 9:20 am Additional Instructions: Follow-up appointments: If there is not an appointment listed below, please call your physician and schedule a follow-up appointment. If you have congestive heart failure and your symptoms return, make an appointment with your physician. Medication List: Carry an up to date list of medications you are taking at all time. We have given you an updated medication list including any new medications that you have been prescribed. Please provide that list to your primary provider Symptoms: If your condition changes or you experience any of the following symptoms, notify your physician immediately: Unusual or worsening pain, fever, persistent nausea and vomiting, bleeding, increase in swelling (especially in your legs), sudden weight gain, extreme dizziness, chest pain, increased drainage or redness from a wound or incision. Go to the emergency department if you experience a problem with breathing. Weights: If you have a history of swelling or shortness of breath, weigh yourself daily and notify your physician if you have a weight gain of two or more pounds in one day or 5 or more pounds in a week. If you experience any of the warning signs for stroke: Sudden numbness or weakness of the face, arm or leg; especially on one side of the body, sudden confusion, trouble speaking or understanding, sudden trouble seeing in one or both eyes, sudden trouble walking, dizziness, loss of balance or coordination, sudden sever headache with no cause; Call 911 or go to the emergency room. Stroke is a medical emergency. Some risk factors for stroke: Age, cigarette smoking, diabetes, excessive alcohol consumption, family history , high blood pressure, overweight, physical inactivity, prior stroke, heart attack, diagnosis of carotid artery stenosis or other artery disease. If you smoke, STOP: Smoking or tobacco use significantly increases your risk of heart and lung disease. Your chance of disease greatly increases if you continue to smoke. For more information, call the [place] tobacco quit line for smoking cessation NOW ( ) Follow up with outpatient PT on [facility]. - Diet and Activity Activity: as per physical therapy Diet: advance to your usual diet Hospital course: Mr. Vela is a 65 year old male with a history of mucosa associated lymphoid tissue lymphoma, diabetes, and coronary artery disease. He was attempting to move and aerate her down a ramp from the back of his truck. He jumped from the back of the truck onto a stool that was on the ground. It flipped over and somehow knocked the aerator off the ramp, it bounced on the ground, and one of the large 8-10 inch spikes punctured his left posterior upper arm. He reports significant blood loss at home. He is brought to the emergency department by [facility] where he was given 2 L of IV fluid, a T-dap, and the wound was sutured. The wound was seeping when he arrived on the floor, but there is no significant blood loss here. He arrived with a hemoglobin of 10.1, it dropped to 8.5. IV fluids were stopped and hemoglobin was drawn again this morning and it was 9.0. MCV is 80.7, slightly decreased. His iron and percent saturation are low. Patient does appear to be pale but is asymptomatic. Initially, patient refused physical therapy or pain medication. However, when his arrived she wanted him to have physical therapy. The inpatient consult was put in and they are unable to see him today. I discussed this with patient and and he will be given a prescription for outpatient therapy. He still declines any pain medication other than Tylenol. I will also provide him with a prescription for ferrous sulfate 324 mg by mouth daily and he has an appointment for evaluation of his microcytic anemia with hematology oncology that was scheduled by our multiple tube winding machine operator. Patient is alert and oriented and all other labs and vital signs are within normal limits. He is stable for discharge. - Time Spent with Patient Total time spent providing and/or coordinating discharge services: - Constitutional Vitals: Temp Pulse Resp BP Pulse Ox 98.2 F 92 16 127/71 90 06/16/16 10:31 06/16/16 10:31 06/16/16 10:31 06/16/16 10:06/16/16 10:31 General appearance: Present: cooperative, A&O X 3, pleasant, no acute distress, answers questions appropriately - Head Head exam: Present: normal inspection - Eye Eye exam: Present: normal appearance, conjuntiva pink - ENT ENT exam: Present: mucous membranes moist, normal exam, normal external ear exam - Neck Neck exam general surgery: Present: normal inspection. Absent: lymphadenopathy , tenderness - Respiratory Respiratory exam: Present: CTAB. Absent: rales, respiratory distress, stridor, wheezes - Cardiovascular Cardiovascular exam: Present: RRR, +S1, +S2. Absent: diastolic murmur, systolic murmur - GI/Abdominal GI/Abdominal exam: Present: normal bowel sounds, soft. Absent: hepatomegaly, tenderness - Neurological Exam Neurological exam: Present: alert, oriented X3, no focal deficits, strengths equal and symetr throughout. Absent: facial droop, speech deficit - Skin Skin exam: Present: pallor. Absent: erythema, mottled, petechiae - Expanded Skin Exam Type of lesion: Absent: abrasion, laceration - VTE Reasons for not Prescribing Prophylaxis: Treatment not Indicated - Low risk for VTE
== END 2016-06-16 15:23 | disposition home or self-care (01) ==
LOC: EMEROO 16:41 → 3BNU 16:41
PROVIDERS: ADMIT Internal Medicine; ATTEND Registered Nurse

== ENCOUNTER 2018-01-04 11:38 | Observation (INO) ==
--- NOTE | 2018-01-04 11:51 | Emergency Department Note ---
Disposition Clinical Impression: Orthostatic hypotension, Dizziness Disposition: Admitted As Inpatient Condition: Good Time of Disposition: 16:08 General Adult HPI - General Chief complaint: ED Dizziness Stated complaint: dizziness Source: patient, EMS Mode of arrival: EMS Limitations: no limitations Nursing Notes Reviewed: Yes Vital Signs Reviewed: Yes - History of Present Illness HPI Narrative: Patient is a 67-year-old male that presents emergency department for dizziness. Patient states that he was at cardiac rehabilitation and was beginning to ride the bike and developed dizziness. There is reported that his systolic blood pressure was down into the 60s. Patient states that he has a history of hy pertension and this felt just like when he has low blood pressure. Patient states that he was laid down on the ground and then he felt significantly better. Patient denies any chest pain, shortness of breath, nausea or diaphoresis. Patient states that he did have some cardiac stents placed a few weeks ago but denies a history of myocardial infarction. Patient states that he is feeling completely fine at this time and is back to his baseline. Pain Scale: 0 - Related Data Home Medications Medication Instructions Recorded Confirmed Aspirin 81 mg PO DAILY 10/02/14 01/04/18 Niacin 100 mg PO DAILY 08/10/15 01/04/18 Ubidecarenone [Co Q10] 200 mg PO DAILY 08/10/15 01/04/18 Cetirizine HCl [Zyrtec] 10 mg PO PRN PRN 06/15/16 01/04/18 Insulin DETEMIR [Levemir] 55 unit SQ BID 11/04/17 01/04/18 Metoprolol XL (24 HR) Succ [Toprol 25 mg PO DAILY 12/31/17 01/04/18 XL] Clopidogrel [Plavix] 75 mg PO DAILY 01/04/18 01/04/18 Furosemide [Lasix] 20 mg PO DAILY PRN 01/04/18 01/04/18 metFORMIN [Glucophage] 1,000 mg PO BIDWM 01/04/18 01/04/18 Allergies Allergy/AdvReac Type Severity Reaction Status Date / Time MADHAVI Inhibitors AdvReac Muscle Pain Verified 12/31/17 12:15 insulin glargine AdvReac Dizziness Verified 12/31/17 12:15 [From Basaglar Dann U-100 Insulin] [id number] Reductase AdvReac Muscle Pain Verified 12/31/17 12:16 Inhibitor [Statins] All systems ED: reviewed and negative except as stated. Constitutional: Denies: fever Cardiovascular: Denies: chest pain Respiratory: Denies: dyspnea Gastrointestinal: Denies: abdominal pain, nausea Neurological: Reports: other (Dizziness) Past Medical History - Past Medical History Medical history: Reports: arthritis, cancer, coronary artery disease, diabetes, hypertension Surgical history: Reports: appendectomy, pacemaker Psychiatric history: Reports: no psych history - Social History Smoking Status: Former smoker Smokeless Tobacco Status: No Alcohol use: Reports: none Drug use: Reports: none Physical Exam - General Limitations: no limitations General appearance: alert, in no apparent distress - Head Head exam: atraumatic, normocephalic - Eye Eye exam: Present: normal appearance, EOMI - Neck Neck exam: Present: normal inspection, full ROM, trachea midline - Respiratory Respiratory exam: Present: normal lung sounds bilaterally. Absent: respiratory distress, wheezes - Cardiovascular Cardiovascular exam: Present: regular rate, normal rhythm, normal heart sounds, +S1, +S2 - Abdominal Exam Abdominal exam: Present: soft, Non-Tender, normal bowel sounds - Neurological Exam Neurological exam: Present: alert, oriented X3 - Expanded Neurological Exam Speech: Present: fluid speech Cranial nerves: EOM function (II, III, IV, ): Normal, facial sensation (V): Normal, facial palsy (VII): Normal, gag reflex (IX): Normal, spinal accessory function (XI): Normal, tongue deviation (XII): Normal Cerebellar function: finger to nose: Normal, heel to kline: Normal Motor strength - LUE: 5/5 Motor strength - RUE: 5/5 Motor strength - LLE: 5/5 Motor strength - RLE: 5/5 Upper motor neuron exam: pronator drift: Absent bilaterally Sensory exam upper extremity: light touch: Normal Sensory exam lower extremity: light touch: Normal Coma Scale Eye Opening: Spontaneous Coma Scale Motor Response: Obeys Commands Coma Scale Verbal Response: Oriented Coma Scale Total: 15 - Psychiatric Psychiatric exam: Present: normal affect, normal mood - Skin Skin exam: Present: warm, dry, intact Course Vital Signs Temperature 97.7 F 01/04/18 11:39 Pulse Rate 72 01/04/18 11:39 Respiratory Rate 18 01/04/18 11:39 Blood Pressure 143/71 01/04/18 11:39 O2 Sat by Pulse Oximetry 100 01/04/18 11:39 Temperature 97.7 F 01/04/18 11:39 Pulse Rate 74 01/04/18 14:57 Respiratory Rate 16 01/04/18 14:57 Blood Pressure 113/63 01/04/18 14:57 O2 Sat by Pulse Oximetry 99 01/04/18 14:57 Oxygen Delivery Oxygen Delivery Room Air Medical Decision Making - MDM Narrative Medical decision making narrative: 6 due the patient's into the emergency department with dizziness and recent stent placement we will check basic laboratory testing CBC, BMP troponin and EKG and a bedside glucose. Patient's laboratory testing is relatively unremarkable. I called and spoke with Dr Archer the on-call timber bucker and she has recommended that orthostatics. She stated that if the orthostatics were profoundly abnormal to give her a call back and we will discuss case for her. She was in agreement and at there were mildly abnormal or were normal that the patient to be discharged home with recommendation of following up with cardiology. She states that he does have a cardiology appointment apparently scheduled for the of this month with Dr. Malone. She also recommended the patient not taking his Lasix at this time but recommended not having any changes to his metoprolol. The orthostatics that show significant drop in his blood pressure upon standing. His heart rate did not change. I called back and spoke with Dr. Archer and we were in agreement with this patient likely should be admitted to the hospital. We will admit to the medical service with a cardiology consult. I called and spoke the admitting hospitalist and she is accepted the patient to their service. Patient be admitted to the hospital this time for further evaluation and management. - Medical Records Medical records reviewed: Yes I reviewed the patient's medical records. - Lab Data Lab results reviewed: Yes I reviewed the patient's lab results. Result diagrams: 01/04/18 12:26 01/04/18 12:26 Lab Results 01/04/18 01/04/18 Range/Units 12:26 12:26 WBC 5.8 (4.3-11.1) K/mcL RBC 4.48 (4.19-5.50) M/mcL Hgb 10.8 L (12.9-16.9) g/dL Hct 33.6 L (37.5-50.1) % MCV 75.0 L (83.0-100.0) fL MCH 24.1 L (28.0-33.3) pg MCHC 32.1 (31.6-35.5) g/dL RDW 14.4 (11.5-14.5) % Plt Count 210 (140-400) K/mcL MPV 8.8 L (9.4-12.4) fL Immature Gran % 0.7 (0-4) % Seg Neutrophils % 76.5 % Lymphocytes % 10.2 % Monocytes % 8.5 % Eosinophils % 3.6 % Basophils % 0.5 % Neutrophils # 4.4 (1.6-8.9) K/mcL Lymphocytes # 0.6 (0.6-4.6) K/mcL Monocytes # 0.5 (0.0-1.3) K/mcL Eosinophils # 0.2 (0.0-0.6) K/mcL Basophils # 0.0 (0.0-0.2) K/mcL Sodium 135 L (136-145) mEq/L Potassium 4.3 (3.5-5.1) mEq/L Chloride 101 (98-107) mEq/L Carbon Dioxide 23 (23-29) mEq/L BUN 22 (8-23) mg/dL Creatinine 1.04 (0.70-1.30) mg/dL Est GFR ( Amer) > 60 (> 60) Est GFR (Non-Af Amer) > 60 (> 60) BUN/Creatinine Ratio 21 (6-26) Glucose 126 H (70-105) mg/dL Calculated Osmolality 285 (280-300) Calcium 9.6 (8.6-10.3) mg/dL Troponin I 0.03 (< 0.04) ng/mL - Radiology Data Radiology results reviewed: Yes I reviewed the patient's radiology results. - EKG Data EKG #1 EKG attestation: Yes I reviewed and interpreted this EKG. EKG results narrative: EKG shows a paced rhythm and rate of 70 bpm, there is duration 174, QTc of 447. No evidence of STEMI and EKG. This is compared to previous EKG on 11/10/17 which also showed a paced rhythm.
[2018-01-04] MEDS ORDERED: 0.9 % Sodium Chloride 500 ML IVC ONE ×2 (12:19→15:26)
[2018-01-04 12:35] LABS: Basophils % 0.5 %; Eosinophils # 0.2 K/mcL (0.0-0.6); Eosinophils % 3.6 %; Hematocrit 33.6 % (37.5-50.1); Hemoglobin 10.8 g/dL (12.9-16.9); Immature Granulocytes % 0.7 % (0-4); Lymphocytes # 0.6 K/mcL (0.6-4.6); Lymphocytes % 10.2 %; Mean Corpuscular HGB Conc 32.1 g/dL (31.6-35.5); Mean Corpuscular Hemoglobin 24.1 pg (28.0-33.3); Mean Platelet Volume 8.8 fL (9.4-12.4); Monocytes # 0.5 K/mcL (0.0-1.3); Monocytes % 8.5 %; Neutrophils # 4.4 K/mcL (1.6-8.9); Platelet Count 210 K/mcL (140-400); Red Blood Count 4.48 M/mcL (4.19-5.50); Red Cell Distribution Width 14.4 % (11.5-14.5); Segmented Neutrophils % 76.5 %
--- NOTE | 2018-01-04 12:36 | Emergency Department Note ---
Disposition Clinical Impression: Orthostatic hypotension, Dizziness Disposition: Admitted As Inpatient Condition: Good General Adult HPI - General Chief complaint: ED Dizziness Stated complaint: dizziness Time Seen by Provider: 01/04/18 11:57 Source: patient, EMS Mode of arrival: EMS Limitations: no limitations - History of Present Illness Pain Scale: 0 - Related Data Home Medications Medication Instructions Recorded Confirmed Aspirin 81 mg PO DAILY 10/02/14 01/04/18 Niacin 100 mg PO DAILY 08/10/15 01/04/18 Ubidecarenone [Co Q10] 200 mg PO DAILY 08/10/15 01/04/18 Cetirizine HCl [Zyrtec] 10 mg PO PRN PRN 06/15/16 01/04/18 Insulin DETEMIR [Levemir] 55 unit SQ BID 11/04/17 01/04/18 Metoprolol XL (24 HR) Succ [Toprol 25 mg PO DAILY 12/31/17 01/04/18 XL] Clopidogrel [Plavix] 75 mg PO DAILY 01/04/18 01/04/18 Furosemide [Lasix] 20 mg PO DAILY PRN 01/04/18 01/04/18 metFORMIN [Glucophage] 1,000 mg PO BIDWM 01/04/18 01/04/18 Allergies Allergy/AdvReac Type Severity Reaction Status Date / Time MADHAVI Inhibitors AdvReac Muscle Pain Verified 12/31/17 12:15 insulin glargine AdvReac Dizziness Verified 12/31/17 12:15 [From Basaglar KwikPen U-100 Insulin] Hrzfbsi-Dqp-Sbl Reductase AdvReac Muscle Pain Verified 12/31/17 12:16 Inhibitor [Statins] Constitutional: Denies: fever Cardiovascular: Denies: chest pain Respiratory: Denies: dyspnea Gastrointestinal: Denies: abdominal pain, nausea Neurological: Reports: other (Dizziness) Past Medical History - Past Medical History Medical history: Reports: arthritis, cancer, coronary artery disease, diabetes, hypertension Surgical history: Reports: appendectomy, pacemaker Psychiatric history: Reports: no psych history - Social History Smoking Status: Former smoker Smokeless Tobacco Status: No Alcohol use: Reports: none Drug use: Reports: none Physical Exam - General Limitations: no limitations General appearance: alert, in no apparent distress Course Vital Signs Temperature 97.7 F 01/04/18 11:39 Pulse Rate 72 11/19/18 11:39 Respiratory Rate 18 01/04/18 11:39 Blood Pressure 143/71 01/04/18 11:39 O2 Sat by Pulse Oximetry 100 01/04/18 11:39 Temperature 97.6 F 01/04/18 17:44 Pulse Rate 75 01/04/18 17:44 Respiratory Rate 16 01/04/18 17:44 Blood Pressure 137/77 01/04/18 17:44 O2 Sat by Pulse Oximetry 99 01/04/18 17:44 Oxygen Delivery Oxygen Delivery Room Air Medical Decision Making - Lab Data Result diagrams: 01/04/18 12:26 01/04/18 12:26 Lab Results 01/04/18 01/04/18 Range/Units 12:26 12:26 WBC 5.8 (4.3-11.1) K/mcL RBC 4.48 (4.19-5.50) M/mcL Hgb 10.8 L (12.9-16.9) g/dL Hct 33.6 L (37.5-50.1) % MCV 75.0 L (83.0-100.0) fL MCH 24.1 L (28.0-33.3) pg MCHC 32.1 (31.6-35.5) g/dL RDW 14.4 (11.5-14.5) % Plt Count 210 (140-400) K/mcL MPV 8.8 L (9.4-12.4) fL Immature Gran % 0.7 (0-4) % Seg Neutrophils % 76.5 % Lymphocytes % 10.2 % Monocytes % 8.5 % Eosinophils % 3.6 % Basophils % 0.5 % Neutrophils # 4.4 (1.6-8.9) K/mcL Lymphocytes # 0.6 (0.6-4.6) K/mcL Monocytes # 0.5 (0.0-1.3) K/mcL Eosinophils # 0.2 (0.0-0.6) K/mcL Basophils # 0.0 (0.0-0.2) K/mcL Sodium 135 L (136-145) mEq/L Potassium 4.3 (3.5-5.1) mEq/L Chloride 101 (98-107) mEq/L Carbon Dioxide 23 (23-29) mEq/L BUN 22 (8-23) mg/dL Creatinine 1.04 (0.70-1.30) mg/dL Est GFR ( Amer) > 60 (> 60) Est GFR (Non-Af Amer) > 60 (> 60) BUN/Creatinine Ratio 21 (6-26) Glucose 126 H (70-105) mg/dL Calculated Osmolality 285 (280-300) Calcium 9.6 (8.6-10.3) mg/dL Troponin I 0.03 (< 0.04) ng/mL Attestation Statement - Attestation Attestation: I examined this patient and my medical decision-making was reviewed with the Resident Physician. I agree with the documented findings, disposition and treatment plan as described except to the extent set forth below. Patient presents to the ED with a chief complaint of dizziness. Patient had an episode where he felt dizzy while at cardiac rehabilitation. He had finished rowing. He was getting waiting on the exercise bike and felt dizzy. He sat down. They checked his blood pressure was low. Patient brought in by EMS and states he feels fine now. He denies any chest pain or difficulty breathing during the episodes. He is status post stent placement a few weeks ago. He was started on metoprolol and alert at that time. He is also on a water pill, but he states he has not taken any extra. He is awake alert and neurologically intact on examination. Heart regular lungs clear. Plan. Cardiac workup. Fluid bolus. We will discuss with cardiology. Patient continues to be orthostatic after IV fluid bolus. Question if this is medication related. We will admit.
[2018-01-04 12:57] LABS: Troponin I 0.03 ng/mL (< 0.04)
[2018-01-04 13:39] LABS: BUN/Creatinine Ratio 21 (6-26); Blood Urea Nitrogen 22 mg/dL (8-23); Calcium 9.6 mg/dL (8.6-10.3); Carbon Dioxide 23 mEq/L (23-29); Chloride 101 mEq/L (98-107); Glucose 126 mg/dL (70-105); Osmolality,Calculated 285 (280-300); Potassium 4.3 mEq/L (3.5-5.1); Sodium 135 mEq/L (136-145); eGFR For Non-African Americans > 60 (> 60)
[2018-01-04] MEDS ORDERED: Naloxone 0.4 MG/ML INJ IVP PRN (15:53)
[2018-01-04] MEDS ORDERED: Dextrose Gel 15 GM/37.5 ML TUBE PO PRN ×2 (15:55)
[2018-01-04] MEDS ORDERED: *HR* Dextrose 50 % in Water (Syg) 50 ML SYRINGE IVP PRN (15:55)
[2018-01-04] MEDS ORDERED: D5% in Water 1,000 ML IVC PRN (15:55)
--- NOTE | 2018-01-04 16:32 | Internal Med History&Physical ---
Date of Encounter: 01/04/18 Time of Encounter: 16:25 Internal Medicine - H&P: HPI Chief complaint: Dizziness Admitted From: Home Plans for Post Hospital Care: Home History of present illness: Mr. Vela is a 67 year old male with PMH of CAD s/p stents, CMP, CHFrEF (EF 30%), MALT Lymphoma, Lung CA , Chronic anemia, CKD He was at [facility] rehab and complained of dizziness, BP was found to be 60s systolic. He had associated lightheadedness . he was made to lie down and his blood pressure improved. He was then referred to the ER. He is seen and examined at the bedside with his partner. Patient recently had stents placed 10/2017 and started on Brilinta, BB and prn lasix. he takes lasix every other day. He took lasix this men. He reports poor oral intake for the past few days and he believes he's always been dizzy on getting up from sitting or laying position. Today was his first visit to cardiac rehab and he did not feel he was overly exerted. He denies chest pain, SOB, is able to lay flat, no orthopena, no PND, no ankle edema. he denies headaches, n/v/diarrhea, no abdominal pain, no changes in urinary or bowel habits. stool is brown. He denies any other symptoms On presentation to the ER , his Chem and CBC are at baseline. He had orthostatic hypotension on vitals check EKG is paced Juvenile Justice Specialist was consulted who recommended admission for optimization of medication. He is full code Past Med Surg Social Fam HX - Past Medical History Medical history: arthritis, cancer, coronary artery disease, diabetes, hypertension Additional medical history: malt lymphoma , neuropathy Psychiatric history: no psych history - Past Surgical History Surgical History: appendectomy, pacemaker Additional surgical history: heart cath. bronch x 3 - Social History Smoking Status: Former smoker Smokeless Tobacco Status: No Alcohol use: none Drug use: none - Family History Father Living Status: Hx Family Cancer: Yes (pancreatic ca) Mother Living Status: Hx Family Cancer: Yes (colon ca) Hx Family Endocrine Disorder: Yes (diabetes) Sister Living Status: Still Living Hx Family Endocrine Disorder: Yes (dm) Brother Adopted: No Family Member Ethnicity: Non- Living Status: Still Living Hx Family Cardiac Disorders: Yes (open heart surgery) Hx Family HEENT Disorders: Yes (ringing in ears) Internal Medicine - H&P: Meds Aspirin 81 mg PO DAILY 10/02/14 [History] Niacin 100 mg PO DAILY 08/10/15 [History] Ubidecarenone [Co Q10] 200 mg PO DAILY 08/10/15 [History] Cetirizine HCl [Zyrtec] 10 mg PO PRN PRN 06/15/16 [History] Insulin DETEMIR [Levemir] 55 unit SQ BID 11/04/17 [History] Metoprolol XL (24 HR) Succ [Toprol XL] 25 mg PO DAILY 12/31/17 [History] Clopidogrel [Plavix] 75 mg PO DAILY 01/04/18 [History] Furosemide [Lasix] 20 mg PO DAILY PRN 01/04/18 [History] metFORMIN [Glucophage] 1,000 mg PO BIDWM 01/04/18 [History] Allergy/AdvReac Type Severity Reaction Status Date / Time MADHAVI Inhibitors AdvReac Muscle Pain Verified 12/31/17 12:15 insulin glargine AdvReac Dizziness Verified 12/31/17 12:15 [From Basaglar KwikPen U-100 Insulin] Vlpytgl-Fsp-Qph Reductase AdvReac Muscle Pain Verified 12/31/17 12:16 Inhibitor [Statins] All Systems PM: A 10-system review of systems was performed and is negative for pertinent findings except as documented above in the HPI. - Constitutional Constitutional: as per HPI - EENT Eyes: as per HPI Ears: as per HPI Nose, mouth and throat: as per HPI - Cardiovascular Cardiovascular ROS IM: as per HPI - Respiratory Respiratory: as per HPI - Gastrointestinal Gastrointestinal: as per HPI - Musculoskeletal Musculoskeletal ROS IM: as per HPI - Integumentary Integumentary IM: as per HPI - Neurological Neurological ROS: as per HPI - Hematologic/Lymphatic Hematologic/Lymphatic: as per HPI - Constitutional Vitals: Temp Pulse Resp BP Pulse Ox 97.7 F 70 18 139/76 100 01/04/18 11:39 01/04/18 16:11 01/04/18 16:11 01/04/18 16:11 01/04/18 16:11 Exam: VStial signs. BP on laying flat 107/63, Sitting 86/54, Standing 76/46 Gen: Calm, not in distress, speaks full sentences, laying flat in bed in no form of distress HEENT: Moist oral mucosa, sclera anicteric, not pale Chest: Equal chest movement bilaterally. Left Port-A-Cath clean and dry REsp: CTAB,anterior auscultation only Heart: S1, S2, only, no m/g/r Abdomen: Obese, soft, not tender, BS present in al quadrants Extremities: Joint inspection is WNL, no pedal edema, pulses present bilaterally Neuro: AAOX3, no speech deficits, moves all extremities equally, no facial paralysis Psych: Affect is appropriate Internal Med - H&P Results - Labs CBC & Chem 7: 01/04/18 12:26 01/04/18 12:26 Labs: Short CBC 01/04/18 Range/Units 12:26 WBC 5.8 (4.3-11.1) K/mcL Hgb 10.8 L (12.9-16.9) g/dL Hct 33.6 L (37.5-50.1) % Plt Count 210 (140-400) K/mcL Neutrophils # 4.4 (1.6-8.9) K/mcL BMP 01/04/18 12:26 Sodium 135 L Potassium 4.3 Chloride 101 Carbon Dioxide 23 BUN 22 Creatinine 1.04 Glucose 126 H Calcium 9.6 Cardiac Enzymes 01/04/18 Range/Units 12:26 Troponin I 0.03 (< 0.04) ng/mL - Assessment and plan (1) Orthostatic hypotension Current Visit: Yes Status: Acute Assessment and plan: Likely medication induced No symptoms or signs of bleeding, or fluid deficit Hemoglobin is stable at 10 Demonstrable orthostatic hypotension No chest pain, no EKG findings Follow echo report Hold metoprolol and Lasix Cardiology was consulted by ER team, will await recommendations 250 mL bolus of fluid given. Patient's EF is 30% (2) DVT prophylaxis Current Visit: Yes Status: Acute Assessment and plan: SQ heparin (3) Microcytic anemia Current Visit: Yes Status: Chronic Assessment and plan: HB is stable and at basein (4) CAD (coronary artery disease) Current Visit: Yes Status: Chronic Assessment and plan: Continue home meds Qualifiers: Coronary Disease-Associated Artery/Lesion type: [place] artery [place] vs. transplanted heart: [place] heart Associated angina: without angina Qualified Code(s): I25.10 - Atherosclerotic heart disease of [place] coronary artery without angina pectoris (5) Diabetes mellitus Current Visit: Yes Status: Chronic Assessment and plan: FS ACHS ADA diet Continue levemir, prandial lispro and sliding scale insulin Qualifiers: Diabetes mellitus type: type 2 Diabetes mellitus termite control servicer insulin use: with termite control servicer use Diabetes mellitus complication status: with neurologic complications Diabetes mellitus complication detail: with unspecified neuropathy Qualified Code(s): E11.40 - Type 2 diabetes mellitus with diabetic neuropathy, unspecified; Z79.4 - retirement (current) use of insulin (6) Mucosa-associated lymphoid tissue (MALT) lymphoma Current Visit: Yes Status: Chronic Assessment and plan: Chronic, Onc progress note from visit 11/27/2017 noted. Follow up with Onc as out-patient - Time Spent With Patient Total time spent is greater than 50% in coordination of care (as documented) at patient's floor/unit and/or counseling patient:
[2018-01-04] MEDS ORDERED: Perflutren Lipid Microsphere 1.3 ML in 0.9 % Sodium Chloride 8.7 ML IVP ONE (18:29)
[2018-01-04] MEDS: Insulin LISPRO 300 UNITS/3 ML VIAL SQ SCH (18:37)
[2018-01-04] MEDS ORDERED: Insulin DETEMIR 100 UNIT/ML X5UNITS SQ SCH (21:00)
[2018-01-04] MEDS ORDERED: Insulin LISPRO 300 UNITS/3 ML VIAL SQ SCH (21:00)
[2018-01-05 04:21] LABS: Basophils % 0.4 %; Eosinophils # 0.2 K/mcL (0.0-0.6); Eosinophils % 3.3 %; Hematocrit 30.8 % (37.5-50.1); Hemoglobin 9.8 g/dL (12.9-16.9); Immature Granulocytes % 0.4 % (0-4); Lymphocytes # 0.6 K/mcL (0.6-4.6); Lymphocytes % 12.5 %; Mean Corpuscular HGB Conc 31.8 g/dL (31.6-35.5); Mean Corpuscular Hemoglobin 23.5 pg (28.0-33.3); Mean Corpuscular Volume 73.9 fL (83.0-100.0); Mean Platelet Volume 8.9 fL (9.4-12.4); Monocytes # 0.4 K/mcL (0.0-1.3); Monocytes % 8.2 %; Neutrophils # 3.8 K/mcL (1.6-8.9); Platelet Count 224 K/mcL (140-400); Red Blood Count 4.17 M/mcL (4.19-5.50); Red Cell Distribution Width 14.6 % (11.5-14.5); Segmented Neutrophils % 75.2 %
[2018-01-05 04:36] LABS: BUN/Creatinine Ratio 20 (6-26); Blood Urea Nitrogen 20 mg/dL (8-23); Calcium 9.2 mg/dL (8.6-10.3); Carbon Dioxide 28 mEq/L (23-29); Chloride 102 mEq/L (98-107); Glucose 90 mg/dL (70-105); Osmolality,Calculated 286 (280-300); Potassium 3.9 mEq/L (3.5-5.1); Sodium 137 mEq/L (136-145); eGFR For Non-African Americans > 60 (> 60)
[2018-01-05] MEDS ORDERED: *HR* Heparin 5,000 UNIT/ML VIAL SQ SCH (06:00)
[2018-01-05] MEDS: Insulin LISPRO 300 UNITS/3 ML VIAL SQ SCH ×2 (07:49→12:32)
[2018-01-05] MEDS ORDERED: Aspirin 81 MG TAB.CHEW PO SCH (09:00)
[2018-01-05] MEDS ORDERED: (Niacin [Niacin] 100 MG) PO SCH (09:00)
--- NOTE | 2018-01-05 10:33 | Cardiology Consult Note ---
Addendum entered and electronically signed by Epifanio Bacon CNP 01/05/18 10:51: EKG reviewed, shows AV pacing. Telemetry 24 hour review shows AV pacing. No concerning arrhythmias seen. Original Note: <Epifanio Bacon - Last Filed: 01/05/18 10:26> Date of Encounter: 01/05/18 Time of Encounter: 09:10 Assessment and Plan (1) Orthostatic hypotension Current Visit: Yes Status: Acute Positive orthostatic vitals. He was recently started on lasix and taking QOD and this may have caused his symptoms. Will stop lasix at this time. IV fluid given and symptoms improved. Continue bb. Repeat orthostatic vitals. Repeat TTE with definity completed last night and EF 35%, no significant valvular disease. No significant change from prior TTE. If vitals improved ok for d/c home. F/u scheduled with his gymnastic coach 01/14/18. (2) CAD (coronary artery disease) Current Visit: Yes Status: Chronic H/i CAD s/p multivessel PCI. Continue plavix, asa, and bb. He is not on statin due to allergy. He will resume cardiac rehab next week. Healthy heart diet. Qualifiers: Coronary Disease-Associated Artery/Lesion type: [place] artery [place] vs. transplanted heart: [place] heart Associated angina: without angina Qualified Code(s): I25.10 - Atherosclerotic heart disease of [place] coronary artery without angina pectoris (3) Ischemic cardiomyopathy Current Visit: Yes Status: Acute Ischemic cardiomyopathy. EF 35%. Re-evaluate after full 12 weeks of medical therapy. Currently euvolemic. Hold lasix. Low sodium diet and daily weights. Recent SOB likely due to brilinta. Resolved with changing to plavix. Continue bb as tolerated. No aceI secondary to allergy and hypotension. Discussion w patient/family: The assessment and plan as outlined above was discussed with the patient and/or family members who expressed understanding and agreement. All questions were answered. Thank you for involving us in the care of your patient. Please call with any questions. History of Present Illness Consult date: 01/05/18 Requesting physician: Naomy Mendieta See Consult reason: orthostatic hypotension Chief complaint: dizziness, low blood pressure at cardiac rehab History of present illness: Mr. Vela is a 67 year old male with past medical history of CAD s/p multivessel PCI 11/09/17, ICMP with EF 30%, third degree heart block s/p PPM, DM type II, and lung cancer s/p chemotherapy.. He presents after he was found to have low blood pressure while at cardiac rehab. He was doing his first session at cardiac rehab. In-between exercises he developed dizziness. His b/p was found to be in the 70's systolic. They had him lay flat and his b/p improved. He was sent to the ED. He states otherwise he has been feeling fine. He was started on lasix at his last cardiology visit for ankle edema and SOB. He was taking lasix every other day. His SOB improved. He was also taken off brilinta and placed on plavix due to SOB. Otherwise he was drinking a good amount of water daily. C/o intermittent dizziness with position change since his IN. He also notices his blood sugars are low when he has dizziness at home. In the ED he was noted to have positive orthostatic blood pressures with no changes in HR. He was given IV fluid and lasix was stopped. This morning he is feeling better with no dizziness with movement. Prior cardiac testing: stress 09/2017-Perfusion study suggests a small sized inferior apical scar with minimal periscar ischemia, though an artifact due to pacing is also possible. Globally systolic dysfunction, reduced stress LVEF 25 %. Non diagnostic ischemic stress ECG findings due to pacing. No abnormal hemodynamic changes during stress test. TTE 10/23/29-LVEF 30%. Severe global and segmental left ventricular systolic dysfunction. Normal right ventricular structure and function. No significant valvular dysfunction. No pulmonary hypertension. Estimated RA pressure is 10 mmHg. Recommend LV contrast for better evaluation of LVEF, wall motion and rule out apical thrombus. [facility] 11/12/17- 70-80% stenosis in the Proximal-Mid LAD. S/p PTCA and GUERDA to pLAD and mLAD. 90% stenosis in the 1st Marginal s/p PTCA with final stenosis 10% 80% stenosis in the Mid RCA s/p PTCA and BMS. The Right PDA has severe diffuse disease and is small. PLB 95% stenosis, small and diffusely diseased. Past Med Surg Social Fam HX - Past Medical History Medical history: arthritis, cancer, coronary artery disease, diabetes Additional medical history: malt lymphoma , neuropathy Psychiatric history: no psych history - Past Surgical History Surgical History: appendectomy, pacemaker Additional surgical history: heart cath. bronch x 3 - Social History Smoking Status: Former smoker Smokeless Tobacco Status: No Alcohol use: none Drug use: none - Family History Father Living Status: Hx Family Cancer: Yes (pancreatic ca) Mother Living Status: Hx Family Cancer: Yes (colon ca) Hx Family Endocrine Disorder: Yes (diabetes) Sister Living Status: Still Living Hx Family Endocrine Disorder: Yes (dm) Brother Adopted: No Family Member Ethnicity: Non- Living Status: Still Living Hx Family Cardiac Disorders: Yes (open heart surgery) Hx Family HEENT Disorders: Yes (ringing in ears) Medications and Allergies Aspirin 81 mg PO DAILY 10/02/14 [History] Niacin 100 mg PO DAILY 08/10/15 [History] Ubidecarenone [Co Q10] 200 mg PO DAILY 08/10/15 [History] Cetirizine HCl [Zyrtec] 10 mg PO PRN PRN 06/15/16 [History] Insulin DETEMIR [Levemir] 55 unit SQ BID 11/04/17 [History] Metoprolol XL (24 HR) Succ [Toprol XL] 25 mg PO DAILY 12/31/17 [History] Clopidogrel [Plavix] 75 mg PO DAILY 01/04/18 [History] Furosemide [Lasix] 20 mg PO DAILY PRN 01/04/18 [History] metFORMIN [Glucophage] 1,000 mg PO BIDWM 01/04/18 [History] Allergy/AdvReac Type Severity Reaction Status Date / Time MADHAVI Inhibitors AdvReac Muscle Pain Verified 12/31/17 12:15 insulin glargine AdvReac Dizziness Verified 12/31/17 12:15 [From Basaglar KwikPen U-100 Insulin] Dxaqmvv-Moe-Rva Reductase AdvReac Muscle Pain Verified 12/31/17 12:16 Inhibitor [Statins] All Systems Review: The remainder of the systems were reviewed and are negative Physical Examination Vital Signs, Last 4 Hours Temp Pulse Resp BP Pulse Ox 01/05/18 06:49 98.2 F 69 18 124/71 97 General: Conversant, No Apparent Distress HEENT: Atraumatic, Normocephaly, Mucus Membranes Moist Neck: No JVD, Normal carotid pulses Cardiac: Reg Rate and Rhythm, Normal S1 and S2, No Murmur Lungs: Normal Breath Sounds, No Wheeze, Rales, Rhonchi Neuro: Alert and responsive, No focal deficits noted Abdomen: Soft, Non-Tender Skin: No rashes noted on visualized skin Musculoskeletal: No Chest Wall Tenderness Extremities: No Clubbing, No Cyanosis, No Edema, Normal Pulses Results 01/05/18 03:45 01/05/18 03:45 Lab Results 01/04/18 01/04/18 01/05/18 12:26 12:26 03:45 WBC 5.8 5.1 Hgb 10.8 L 9.8 L Hct 33.6 L 30.8 L Plt Count 210 224 Sodium 135 L Potassium 4.3 Chloride 101 Carbon Dioxide 23 BUN 22 Creatinine 1.04 Glucose 126 H Calcium 9.6 Troponin I 0.03 01/05/18 03:45 WBC Hgb Hct Plt Count Sodium 137 Potassium 3.9 Chloride 102 Carbon Dioxide 28 BUN 20 Creatinine 0.98 Glucose 90 Calcium 9.2 Troponin I - Imaging and Cardiology Echo: report reviewed Cardiac cath: report reviewed - EKG Interpretation EKG results cardiology: personally reviewed Consult Discharge Plan - Plan Referrals: Mason Oliver Jr, MD [Primary Care Provider] - 01/11/18 3:00 pm () Oleksandr Griffin MD [Partnered Physician] - 04/07/18 2:30 pm Higinio Malone DO [Partnered Physician] - 01/14/18 11:45 am <Nirali Archer - Last Filed: 01/05/18 11:21> Date of Encounter: 01/05/18 - Attending Attestation I examined this patient and my medical decision-making was reviewed with the SOLDERING MACHINE SETTER. I agree with the documented findings, disposition and treatment plan as described. Mr. Vela presents with orthostatic hypotension. Recently started on lasix, taking qod in the outpatient setting. At the bedside the patient is AAOx3, conversant, NAD, states he feels back to baseline Vital signs stable - orthostatics to be repeated Exam demonstrates no concerning cardiac murmur, no LE edema, lungs clear Labs show stable anemia, normal kidney function, negative troponin ECG demonstrates AV pacing No dysrhythmias seen on telemetry Impression: 1. Orthostatic hypotension: Recommend stopping diuretic which was recently added. Asked the patient to stay hydrated with water - within limitation given known ischemic cardiomyopathy and reduced LVEF. He presently feels back to baseline and has sat up at the bedside and gotten up to go to the bathroom asymptomatic. 2. Ischemic cardiomyopathy: LVEF 35% on echo done this admission, no significant change from 10/2017. Recommend re-evaluation after 12 weeks of medical therapy in consideration of ICD placement. Recommend continuing low dose toprol as tolerated. No ACEI secondary to hypotension and allergy. Assessment and Plan Discussion w patient/family: The assessment and plan as outlined above was discussed with the patient and/or family members who expressed understanding and agreement. All questions were answered. Thank you for involving us in the care of your patient. Please call with any questions. History of Present Illness History of present illness: Mr. Vela is a 67 year old male All Systems Review: The remainder of the systems were reviewed and are negative Results 01/05/18 03:45 01/05/18 03:45 Lab Results 01/04/18 01/04/18 01/05/18 12:26 12:26 03:45 WBC 5.8 5.1 Hgb 10.8 L 9.8 L Hct 33.6 L 30.8 L Plt Count 210 224 Sodium 135 L Potassium 4.3 Chloride 101 Carbon Dioxide 23 BUN 22 Creatinine 1.04 Glucose 126 H Calcium 9.6 Troponin I 0.03 01/05/18 03:45 WBC Hgb Hct Plt Count Sodium 137 Potassium 3.9 Chloride 102 Carbon Dioxide 28 BUN 20 Creatinine 0.98 Glucose 90 Calcium 9.2 Troponin I
[2018-01-05] MEDS ORDERED: Metoprolol XL (24 HR) Succ 25 MG TAB.ER.24H PO SCH (11:00)
--- NOTE | 2018-01-05 12:47 | Discharge Summary ---
- NOTES TO OUTPATIENT PROVIDER Notes to Outpatient Provider: Patient presented with orthostatic hypotension- Lasix. Per cardiology continue with low-dose beta primo. Patient will monitor daily weights as well as fluid intake. Monitor blood pressure daily. Date of Encounter: 01/05/18 Time of Encounter: 12:45 - Discharge Diagnosis (1) CAD (coronary artery disease) Priority: Secondary Status: Chronic Qualifiers: Coronary Disease-Associated Artery/Lesion type: [place] artery [place] vs. 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 (3) Diabetes mellitus Priority: Secondary Status: Chronic Qualifiers: Diabetes mellitus type: type 2 Diabetes mellitus marine oil terminal superintendent insulin use: with marine oil terminal superintendent use Diabetes mellitus complication status: with neurologic complications Diabetes mellitus complication detail: with unspecified neuropathy Qualified Code(s): E11.40 - Type 2 diabetes mellitus with diabetic neuropathy, unspecified; Z79.4 - terminal press operator (current) use of insulin (4) Microcytic anemia Priority: Secondary Status: Chronic (5) Orthostatic hypotension Priority: Primary Status: Acute Hospital course: Mr. Vela is a 67 year old male with past medical history of CAD status post stents CMP CHF R EF (EF 30%) MALT lymphoma lung cancer chronic anemia CK D. Patient presented cardiac rehabilitation was cleaning a dizziness blood pressures found to be the 60 systolic he has dizzy lightheadedness. He presented to emergency room for evaluation he had recent stents placed 10/2017 and he was started on [place] beta primo and when necessary Lasix which she took every other day. He reports he has had poor oral intake for the past few days his chemistry and CBC were at baseline he had positive orthostatic hypotension EKG was paced cardiology was consulted and recommended stopping diuretic and 13 patient to stay hydrated with limitations since he has known ischemic cardiomyopathy and reduced LVEF. Recommended continuing low-dose beta primo as tolerated. Patient has been ambulating in the hallway as well as the bathroom with no symptoms. Repeat orthostatics did reveal a significant drop in blood pressure however patient was asymptomatic. I did discuss this with cardiology SWITCH TECHNICIAN patient will be followed up next week advised patient to monitor blood pressure-advised patient to follow-up with cardiology as well as primary care provider and to monitor intake patient verbalized understanding. He is given information concerning orthostatic hypotension losses and the patient home with TERELL ríos - Time Spent with Patient Total time spent providing and/or coordinating discharge services: - Discharge Medications Prescriptions: Metoprolol XL (24 HR) Succ [Toprol Xl] 25 mg PO DAILY #30 tab.er.24h Home Medications: Aspirin 81 mg PO DAILY 10/02/14 [History] Niacin 100 mg PO DAILY 08/10/15 [History] Ubidecarenone [Co Q10] 200 mg PO DAILY 08/10/15 [History] Cetirizine HCl [Zyrtec] 10 mg PO PRN PRN 06/15/16 [History] Insulin DETEMIR [Levemir] 55 unit SQ BID 11/04/17 [History] Clopidogrel [Plavix] 75 mg PO DAILY 01/04/18 [History] metFORMIN [Glucophage] 1,000 mg PO BIDWM 01/04/18 [History] Metoprolol XL (24 HR) Succ [Toprol Xl] 25 mg PO DAILY tab.er.24h 01/05/18 [Rx] Metoprolol XL (24 HR) Succ [Toprol Xl] 25 mg PO DAILY #30 tab.er.24h 01/05/18 [Rx] Allergies/Adverse Reactions: Allergy/AdvReac Type Severity Reaction Status Date / Time MADHAVI Inhibitors AdvReac Muscle Pain Verified 12/31/17 12:15 insulin glargine AdvReac Dizziness Verified 12/31/17 12:15 [From Basaglar KwikPen U-100 Insulin] Ccmuctn-Ydt-Cnq Reductase AdvReac Muscle Pain Verified 12/31/17 12:16 Inhibitor [Statins] Date of admission: 01/04/18 16:14 Primary care physician: Mason Oliver Jr, MD Consults: 01/04/18 16:09 Consult to Cardiology [CONS] Stat Comment: Consulting Provider: Cardiology Connie Reason for Consult: orthostatic hypotension Call Completed: Yes Discharging clinician: Ira Freeman Anticipated date of discharge: 01/05/18 - Constitutional Vitals: Temp Pulse Resp BP Pulse Ox 98.0 F 70 18 157/82 96 01/05/18 11:41 01/05/18 11:42 01/05/18 11:41 01/05/18 11:42 01/05/18 11:41 Exam: Gen: Calm, not in distress, speaks full sentences, laying flat in bed in no form of distress HEENT: Moist oral mucosa, sclera anicteric, not pale Chest: Equal chest movement bilaterally. Left Port-A-Cath clean and dry REsp: CTAB,anterior auscultation only Heart: S1, S2, only, no m/g/r Abdomen: Obese, soft, not tender, BS present in al quadrants Extremities: Joint inspection is WNL, no pedal edema, pulses present bilaterally Neuro: AAOX3, no speech deficits, moves all extremities equally, no facial paralysis Psych: Affect is appropriate - Patient Status Disposition: Home, Self-Care Condition: Good Functional capacity at discharge: independent ambulation Overall status at discharge: patient is back to baseline - Discharge Instructions Follow Up With: Mason Oliver Jr, MD [Primary Care Provider] - 01/11/18 3:00 pm () Oleksandr Griffin MD [Partnered Physician] - 04/07/18 2:30 pm Higinio Malone DO [Partnered Physician] - 01/14/18 11:45 am - Diet and Activity Activity: as per the cardiac rehab Diet: low fat, low cholesterol, low salt diet
[2018-01-05 15:44] VITALS: BP 160/81
--- NOTE | 2018-01-05 17:04 | Electrocardiograph Report ---
[place] [id number] Test Date: 2018-01-04 Pat Name: Rui Vela Department: EXAM3 Room: 3B Gender: M Whizzer: : 1950 Requested By: Marcelino Rodriguez Order Number: [id number] Reading MD: Nirali Archer Measurements Intervals [place] Rate: 70 P: GA: 209 QRS: -81 QRSD: 174 T: 106 QT: 414 QTc: 447 Interpretive Statements A-V dual-paced rhythm Electronically Signed On 01-05-2018 17:02:36 EST by Nirali Archer
== END 2018-01-05 17:11 | disposition home or self-care (01) ==
LOC: 3BNU 11:38 → EMEROOARM 11:38 → 3BNU 17:25
PROVIDERS: ADMIT Internal Medicine; ATTEND Internal Medicine

== ENCOUNTER 2018-09-20 12:58 | Observation (INO) ==
[2018-09-20] MEDS ORDERED: 0.9 % Sodium Chloride 1,000 ML IVC ONE ×2 (13:16→14:41)
[2018-09-20] MEDS ORDERED: *HR* HYDROcodone/Acet 5/325 mg TABLET PO ONE (13:16)
[2018-09-20] MEDS ORDERED: Ondansetron 4 MG/2 ML VIAL IVP ONE (13:16)
[2018-09-20 13:53] LABS: Basophils % 0.2 %; Eosinophils # 0.2 K/mcL (0.0-0.6); Eosinophils % 2.8 %; Hematocrit 36.5 % (37.5-50.1); Hemoglobin 12.3 g/dL (12.9-16.9); Immature Granulocytes % 0.7 % (0-4); Lymphocytes # 0.8 K/mcL (0.6-4.6); Mean Corpuscular HGB Conc 33.7 g/dL (31.6-35.5); Mean Corpuscular Hemoglobin 26.7 pg (28.0-33.3); Mean Corpuscular Volume 79.2 fL (83.0-100.0); Mean Platelet Volume 8.9 fL (9.4-12.4); Monocytes # 0.6 K/mcL (0.0-1.3); Monocytes % 9.3 %; Neutrophils # 4.5 K/mcL (1.6-8.9); Platelet Count 225 K/mcL (140-400); Red Blood Count 4.61 M/mcL (4.19-5.50); Red Cell Distribution Width 13.5 % (11.5-14.5)
[2018-09-20 13:59] LABS: Alanine Aminotransferase 9 Units/L (7-52); Albumin 4.2 g/dL (3.5-5.7); Albumin/Globulin Ratio 1.6 (1.1-2.2); Alkaline Phosphatase 68 Units/L (34-104); Aspartate Amino Transferase 14 Units/L (13-39); BUN/Creatinine Ratio 23 (6-26); Bilirubin,Total 0.5 mg/dL (0.3-1.0); Blood Urea Nitrogen 24 mg/dL (8-23); Calcium 9.9 mg/dL (8.6-10.3); Carbon Dioxide 27 mEq/L (23-29); Chloride 98 mEq/L (98-107); Globulin 2.6 g/dL (2.4-3.5); Glucose 88 mg/dL (70-105); Osmolality,Calculated 287 (280-300); Potassium 4.2 mEq/L (3.5-5.1); Sodium 137 mEq/L (136-145); Total Protein 6.8 g/dL (6.4-8.9); eGFR For African Americans > 60 (> 60); eGFR For Non-African Americans > 60 (> 60)
[2018-09-20 14:01] LABS: Prothrombin Time 11.4 Seconds (9.4-12.1)
[2018-09-20 15:27] LABS: Lipase 7 Units/L (11-82)
[2018-09-20 15:28] LABS: Troponin I < 0.03 ng/mL (< 0.04)
--- NOTE | 2018-09-20 15:45 | Emergency Department Note ---
Disposition Clinical Impression: Syncope Qualifiers: Syncope type: unspecified Qualified Code(s): R55 - Syncope and collapse Disposition: Admitted As Inpatient Referrals: Mason Oliver Jr, MD [Primary Care Provider] - Forms: ED Satisfaction Letter Time of Disposition: 15:53 General Adult HPI - General Chief complaint: ED Fall Stated complaint: weakness Time Seen by Provider: 09/20/18 13:13 Source: patient, EMS Limitations: no limitations - History of Present Illness HPI Narrative: HPI Chief Complaint syncope Patient Stated Complaint Patient is a 67-year-old white male recurrent syncope states phone a few times this week denies any blood thinners outside of a baby aspirin patient states that the decreased bathroom walks a few steps and then falls patient fell and hit his head today and a small abrasion or head patient denies any LOC or neck pain and mild diffuse chest wall tenderness. Although no chest pain or shortness of breath no chest pain or shortness of breath prior to the fall. Denies any focal numbness or weakness and loss of bowel or bladder function is intact patient all her symptoms reviewed and are negative Allergy List : Reviewed-and agree with nurses notes Home Medication List : Reviewed-and agree with nurses notes Medical and Surgical History Active Problem List: Reviewed-and agree with nurses notes Family History Reviewed- see -nurses notes Vital Signs and Body Measurements Reviewed- see -nurses notes ROS At Least 10 Organ Systems Reviewed and Negative Except as Indicated in HPI Physical Examination: All findings normal unless otherwise noted Constitutional Alert & orientated x 3, No Acute Distress Well Nourished Head and Face :Normocephalic and Atraumatic Eye Extraocular Movement Intact Pupils Equally Round Reactive to light Ear Nose Throat Mucous Membranes Moist No Injury or Deformity Oropharynx Clear Cardiovascular Capillary Refill Less than 2 Seconds No Peripheral Edema Normal S1, S2 Pulses Normal Regular Rate and Rhythm Respiratory Clear to Auscultation Bilaterally Normal Rate and Effort no Respiratory Distress or Stridor Gastrointestinal Abdomen Soft Bowel Sounds Present Not Tender Distended Generalized Tenderness. No Guarding Rebound Rigid Genitourinary No Lesion Normal External Genitalia Musculoskeletal Distal Pulses Normal No Injury or Deformity No Calf Tendernes, no Paraspinous Tenderness or spinal ttp Cervical Lumbar Thoracic except for positive chest wall tenderness to palpation bilaterally Neurologic 5/5 Strength throughout No Focal Deficits Sensation Intact or Slurred Speech Skin Dry No Lesion No Rash Normal Color Warm no Cyanosis Diaphoretic Lymph positive abrasion over right upper forehead No Lymphadenopathy or Lymphadenopathy Lymphedema Psychiatric Appropriate Affect Cooperative not Depressed Manic or having Suicidal Thoughts Laboratory Results-reviewed see results Data Reviewed EKG interpretation to paced rhythm rate 77 Medical Decision Making and Diagnosis Medical Decision Making Patient seen and evaluated labs and imaging were reviewed imaging reviewed by myself and radiologist negative for any acute findings patient oriented 3 in entire stay. All patient's questions dressed and answered due to elevated lactic acid syncopal event with increased frequency history of cardiomyopathy pacer placement patient be admitted for further evaluation and management and care patient and understanding and agrees with plan Differential Diagnosis Considered Final Diagnostic Impression #1 fall to head injury #3 abrasion 4. syncope 5 chest wall pain #6 lactic acidosis #7 generalized weakness Disposition Admit Critical care time 37 minutes Pain Scale: 2 - Related Data Home Medications Medication Instructions Recorded Confirmed Aspirin 81 mg PO DAILY 10/02/14 09/20/18 Ubidecarenone [Co Q10] 60 mg PO DAILY 08/10/15 09/20/18 Insulin DETEMIR [Levemir] 60 unit SQ BID 11/04/17 09/20/18 Clopidogrel [Plavix] 75 mg PO DAILY 01/04/18 09/20/18 metFORMIN [Glucophage] 1,000 mg PO BIDWM 01/04/18 09/20/18 Ezetimibe [Zetia] 10 mg PO DAILY 08/26/18 09/20/18 Ferrous Sulfate [Iron] 325 mg PO DAILY 08/26/18 09/20/18 Furosemide [Lasix] 20 mg PO DAILY 08/26/18 09/20/18 Metoprolol XL (24 HR) Succ [Toprol 12.5 mg PO DAILY 08/26/18 09/20/18 Xl] Midodrine HCl 2.5 mg PO TID 08/26/18 09/20/18 Cyanocobalamin (Vitamin B-12) 2,500 mcg SL DAILY 09/20/18 09/20/18 [Vitamin B-12] Multivit-Min/Iron/Folic Acid/K 1 each PO DAILY 09/20/18 09/20/18 [Adults Multivitamin Caplet] Semaglutide [Ozempic] 0.25 mg SQ QWEEK 09/20/18 09/20/18 Allergies Allergy/AdvReac Type Severity Reaction Status Date / Time MADHAVI Inhibitors AdvReac Muscle Pain Verified 06/04/18 09:59 insulin glargine AdvReac Dizziness Verified 06/04/18 09:59 [From [employer] U-100 Insulin] [id number] Reductase AdvReac Muscle Pain Verified 06/04/18 09:59 Inhibitor [Statins] Past Medical History - Past Medical History Medical history: Reports: arthritis, cancer, coronary artery disease, diabetes Surgical history: Reports: appendectomy, pacemaker Psychiatric history: Reports: no psych history - Social History Smoking Status: Never smoker Smokeless Tobacco Status: No Alcohol use: Reports: occasionally Drug use: Reports: none Physical Exam - General Limitations: no limitations General appearance: alert, in no apparent distress Course Vital Signs Temperature 98.5 F 09/20/18 13:03 Pulse Rate 85 09/20/18 13:03 Respiratory Rate 18 09/20/18 13:03 Blood Pressure 145/76 09/20/18 13:03 O2 Sat by Pulse Oximetry 100 09/20/18 13:03 Temperature 98.5 F 09/20/18 13:03 Pulse Rate 70 09/20/18 15:43 Respiratory Rate 16 09/20/18 15:43 Blood Pressure 115/83 09/20/18 15:43 O2 Sat by Pulse Oximetry 99 09/20/18 15:43 Oxygen Delivery Oxygen Delivery Room Air Medical Decision Making - Lab Data Result diagrams: 09/20/18 13:24 09/20/18 13:24 Lab Results 09/20/18 09/20/18 09/20/18 Range/Units 13:24 13:24 13:24 WBC 6.0 (4.3-11.1) K/mcL RBC 4.61 (4.19-5.50) M/mcL Hgb 12.3 L (12.9-16.9) g/dL Hct 36.5 L (37.5-50.1) % MCV 79.2 L (83.0-100.0) fL MCH 26.7 L (28.0-33.3) pg MCHC 33.7 (31.6-35.5) g/dL RDW 13.5 (11.5-14.5) % Plt Count 225 (140-400) K/mcL MPV 8.9 L (9.4-12.4) fL Immature Gran % 0.7 (0-4) % Seg Neutrophils % 74.0 % Lymphocytes % 13.0 % Monocytes % 9.3 % Eosinophils % 2.8 % Basophils % 0.2 % Neutrophils # 4.5 (1.6-8.9) K/mcL Lymphocytes # 0.8 (0.6-4.6) K/mcL Monocytes # 0.6 (0.0-1.3) K/mcL Eosinophils # 0.2 (0.0-0.6) K/mcL Basophils # 0.0 (0.0-0.2) K/mcL PT 11.4 (9.4-12.1) Seconds INR 1.0 Sodium 137 (136-145) mEq/L Potassium 4.2 (3.5-5.1) mEq/L Chloride 98 (98-107) mEq/L Carbon Dioxide 27 (23-29) mEq/L BUN 24 H (8-23) mg/dL Creatinine 1.06 (0.70-1.30) mg/dL Est GFR ( Amer) > 60 (> 60) Est GFR (Non-Af Amer) > 60 (> 60) BUN/Creatinine Ratio 23 (6-26) Glucose 88 (70-105) mg/dL Calculated Osmolality 287 (280-300) Lactic Acid (0.5-2.2) mmol/L Calcium 9.9 (8.6-10.3) mg/dL Total Bilirubin 0.5 (0.3-1.0) mg/dL AST 14 (13-39) Units/L ALT 9 (7-52) Units/L Alkaline Phosphatase 68 (34-104) Units/L Troponin I (< 0.04) ng/mL Serum Total Protein 6.8 (6.4-8.9) g/dL Albumin 4.2 (3.5-5.7) g/dL Globulin 2.6 (2.4-3.5) g/dL Albumin/Globulin Ratio 1.6 (1.1-2.2) Lipase (11-82) Units/L Specimen Rejected 09/20/18 09/20/18 09/20/18 Range/Units 13:24 14:53 15:22 WBC (4.3-11.1) K/mcL RBC (4.19-5.50) M/mcL Hgb (12.9-16.9) g/dL Hct (37.5-50.1) % MCV (83.0-100.0) fL MCH (28.0-33.3) pg MCHC (31.6-35.5) g/dL RDW (11.5-14.5) % Plt Count (140-400) K/mcL MPV (9.4-12.4) fL Immature Gran % (0-4) % Seg Neutrophils % % Lymphocytes % % Monocytes % % Eosinophils % % Basophils % % Neutrophils # (1.6-8.9) K/mcL Lymphocytes # (0.6-4.6) K/mcL Monocytes # (0.0-1.3) K/mcL Eosinophils # (0.0-0.6) K/mcL Basophils # (0.0-0.2) K/mcL PT (9.4-12.1) Seconds INR Sodium (136-145) mEq/L Potassium (3.5-5.1) mEq/L Chloride (98-107) mEq/L Carbon Dioxide (23-29) mEq/L BUN (8-23) mg/dL Creatinine (0.70-1.30) mg/dL Est GFR ( Amer) (> 60) Est GFR (Non-Af Amer) (> 60) BUN/Creatinine Ratio (6-26) Glucose (70-105) mg/dL Calculated Osmolality (280-300) Lactic Acid 2.9 H (0.5-2.2) mmol/L Calcium (8.6-10.3) mg/dL Total Bilirubin (0.3-1.0) mg/dL AST (13-39) Units/L ALT (7-52) Units/L Alkaline Phosphatase (34-104) Units/L Troponin I < 0.03 (< 0.04) ng/mL Serum Total Protein (6.4-8.9) g/dL Albumin (3.5-5.7) g/dL Globulin (2.4-3.5) g/dL Albumin/Globulin Ratio (1.1-2.2) Lipase 7 L (11-82) Units/L Specimen Rejected Hemolyzed
[2018-09-20 17:12] LABS: Bilirubin,Urine Negative (Negative); Blood,Urine Negative (Negative); Clarity,Urine Clear (Clear); Color,Urine Yellow (Yellow); Glucose,Urine (UA) 250 mg/dL (Normal); Ketones,Urine Negative (Negative); Leukocyte Esterase,Urine Negative (Negative); Nitrite,Urine Negative (Negative); Protein,Urine Negative (Neg-Trace); Specific Gravity,Urine 1.009 (1.010-1.025); Urobilinogen,Urine Normal (Normal)
[2018-09-20] MEDS ORDERED: Naloxone 0.4 MG/ML INJ IVP PRN (18:28)
--- NOTE | 2018-09-20 20:05 | Internal Med History&Physical ---
Date of Encounter: 09/20/18 Time of Encounter: 17:30 Internal Medicine - H&P: HPI Chief complaint: History of recent multiple falls Admitted From: Emergency Dept Plans for Post Hospital Care: Home History of present illness: Mr. Vela is a 67 year old male with a history of ischemic cardiomyopathy, unstable angina, CAD diabetes and prior syncope status post pacemaker placement who presented to the ED with complaints of multiple falls in the past month. Does admit to prodrome of dizziness and lightheadedness prior to this falls but denies any loss of consciousness. Patient seems to attribute his recent falling episodes after started on a new medication for his diabetic Ozempic. Could not confirm or refute if he was hypoglycemic with either of these falls. He does recall having erratic blood glucose that range 77-500 both preprandial and postprandial glucose. He stated that he was on Levemir 50 units twice daily however his physician decreased the dose to 50 units daily and added the Ozempic. He stated also that he has had extensive cardiovascular workup and has a recent placed pacemaker on August 2018. He stated also that his last hemoglobin A1c was 12 and admits to history of diabetic neuropathy where he has lost sensation in his feet. Work up at the ED was unremarkable including CBC BMP, LF Ts and lipase. His urinalysis was positive for glucosuria. Given that he fell sustaining a fall to his head suffering laceration of both his right frontal aspect of his head patient had CT imaging of the head and cervical spine which also with a remarkable for any acute abnormalities. Past Med Surg Social Fam HX - Past Medical History Medical history: arthritis, cancer, coronary artery disease, diabetes Additional medical history: malt lymphoma , neuropathy Psychiatric history: no psych history - Past Surgical History Surgical History: pacemaker Additional surgical history: heart cath. bronch x 3 - Social History Smoking Status: Former smoker Smokeless Tobacco Status: No Alcohol use: occasionally Drug use: none - Family History Father Living Status: Age at : 49 Hx Family Cancer: Yes (pancreatic ca) Mother Living Status: Age at : 94 Hx Family Cancer: Yes (colon ca) Hx Family Endocrine Disorder: Yes (diabetes) Sister Living Status: Still Living Hx Family Endocrine Disorder: Yes (dm) Brother Adopted: No Family Member Ethnicity: Non- Living Status: Still Living Hx Family Cardiac Disorders: Yes (open heart surgery) Hx Family HEENT Disorders: Yes (ringing in ears) Internal Medicine - H&P: Meds Aspirin 81 mg PO DAILY 10/02/14 [History] Ubidecarenone [Co Q10] 60 mg PO DAILY 08/10/15 [History] Insulin DETEMIR [Levemir] 50 unit SQ DAILY 11/04/17 [History] Clopidogrel [Plavix] 75 mg PO DAILY 01/04/18 [History] metFORMIN [Glucophage] 1,000 mg PO BIDWM 01/04/18 [History] Ezetimibe [Zetia] 10 mg PO DAILY 08/26/18 [History] Ferrous Sulfate [Iron] 325 mg PO DAILY 08/26/18 [History] Furosemide [Lasix] 20 mg PO DAILY PRN 08/26/18 [History] Metoprolol XL (24 HR) Succ [Toprol Xl] 12.5 mg PO DAILY 08/26/18 [History] Midodrine HCl 2.5 mg PO TID 08/26/18 [History] Cyanocobalamin (Vitamin B-12) [Vitamin B-12] 2,500 mcg SL DAILY 09/20/18 [History] Multivit-Min/Iron/Folic Acid/K [Adults Multivitamin Caplet] 1 each PO DAILY 09/20/18 [History] Semaglutide [Ozempic] 0.25 mg SQ QWEEK 09/20/18 [History] Allergy/AdvReac Type Severity Reaction Status Date / Time MADHAVI Inhibitors AdvReac Muscle Pain Verified 06/04/18 09:59 insulin glargine AdvReac Dizziness Verified 06/04/18 09:59 [From Basaglar JavierikPen U-100 Insulin] Narajel-Qnt-Vgb Reductase AdvReac Muscle Pain Verified 06/04/18 09:59 Inhibitor [Statins] All Systems PM: A 10-system review of systems was performed and is negative for pertinent findings except as documented above in the HPI. Review of systems: GENERAL: Denies fever, chills, fatigue or night sweats. Reports frequent falls DERMATOLOGIC: Denies itch, rash or lesions HEENT: Denies headache, blurriness, diplopia or decreased visual acuity, ear pain, tinnitus, rhinorrhea, sinus tenderness or sore throat RESPIRATORY: Denies SOB, cough, hemoptysis or pleuritic chest pain CARDIOVASCULAR: Denies chest pain, LE edema, palpitation or syncope GASTRO INTESTINAL: Admits to cramps, nausea/vomiting, diarrhea or constipation, melena MUSCULOSKELATAL: Denies muscle pain/weakness, joint tenderness/pain or swelling PSYCH: Denies worsening anxiety, or depression NEURO: Denies vertigo, the reports lightheadedness headache and dizziness GENITURINARY: Denies dysuria, nocturia or urinary incontinence - Constitutional Vitals: Temp Pulse Resp BP Pulse Ox 98.1 F 75 16 148/78 99 09/20/18 19:03 09/20/18 19:03 09/20/18 19:03 09/20/18 19:03 09/20/18 19:03 Exam: GENERAL: NAD, A&O x3, pleasant and conversant SKIN: No skin lesions or rashes, non-jaundiced with exception of his right frontal laceration EYES: EOMI, PERRLA, no sclera icterus HENT: no facial asymmetry, frontal and maxillary sinus non-tender, normal hearing, oropharynx and mucosa moist and without any exudates NECK: No cervical lymphadenopathy, trachea midline, thyroid is palpable does not appear enlarged, left carotid bruit appreciated LUNGS: vesicular breath sounds, clear to auscultation, no wheeze, rhonchi, rales or crackles. Non labored respirations HEART: Normal rate and rhythm, no murmurs or rubs ABDOMEN: soft, non-tender, non-distended, bowel sounds x 4 normoactive EXTRMITIES: No LE asymmetry, No LE edema, pedal pulses 1+ and radial pulses 2 + and equal bilaterally NEURO: Speech and comprehension appears intact. Diminished sensation to vibration and pain in bilateral feet-worse at the plantar aspect PSYCH: Cooperative, non- anxious or irritable, mood and affect is appropriate Internal Med - H&P Results - Labs CBC & Chem 7: 09/20/18 13:24 09/20/18 13:24 Labs: Short CBC 09/20/18 Range/Units 13:24 WBC 6.0 (4.3-11.1) K/mcL Hgb 12.3 L (12.9-16.9) g/dL Hct 36.5 L (37.5-50.1) % Plt Count 225 (140-400) K/mcL Neutrophils # 4.5 (1.6-8.9) K/mcL BMP 09/20/18 13:24 Sodium 137 Potassium 4.2 Chloride 98 Carbon Dioxide 27 BUN 24 H Creatinine 1.06 Glucose 88 Calcium 9.9 Cardiac Enzymes 09/20/18 Range/Units 14:53 Troponin I < 0.03 (< 0.04) ng/mL Liver Function 09/20/18 Range/Units 13:24 Total Bilirubin 0.5 (0.3-1.0) mg/dL AST 14 (13-39) Units/L ALT 9 (7-52) Units/L Alkaline Phosphatase 68 (34-104) Units/L Albumin 4.2 (3.5-5.7) g/dL Urine 09/20/18 Range/Units 16:56 Urine Color Yellow (Yellow) Urine Clarity Clear (Clear) Urine pH 6.0 (5.0-8.0) pH Units Ur Specific [place] 1.009 L (1.010-1.025) Urine Protein Negative (Neg-Trace) mg/dL Urine Glucose (UA) 250 H (Normal) mg/dL - Impressions ITS Impressions Cervical Spine CT 09/20/18 13:16 IMPRESSION: No acute abnormality of the cervical spine. D/ / Raffi Tejeda MD / Raffi Tejeda MD Interpreting Provider: Raffi Tejeda MD Chest X-Ray 09/20/18 13:16 IMPRESSION: 1. Stable right pleural effusion with associated atelectasis in the right lung base. 2. No new lung infiltrates are identified. D/ 09/20/2018 13:58:31 Carlito Schuster MD / chapo Interpreting Provider: Carlito Schuster MD Head CT 09/20/18 13:16 IMPRESSION: No acute intracranial abnormality. Mild chronic microvascular ischemic change. D/ / 09/20/2018 14:33:49 Tu Lugo MD / kim Interpreting Provider: Tu Lugo MD - Assessment and Plan (1) Pre-syncope Current Visit: Yes Status: Acute Assessment and plan: Patient with known history of syncope presents with history of multiple falls, suspect diabetic related autonomic dysfunction. Physical exam does reveal left carotid bruit is such a carotid duplex as been ordered. It appears patient had recent echocardiogram . The echo department will try to obtain the records, he also has a recent pacemaker placed wound on a pacemaker interrogation on interim he will be placed on telemetry. will obtain orthostatic blood pressure management, of note he is already on midodrine (2) IDDM (insulin dependent diabetes mellitus) Current Visit: Yes Status: Chronic Assessment and plan: Last an A1c was 12, he admits to been compliant although questionable given the significant abdomen A1c of 12 is agreeable to insulin per protocol in addition of the basal insulin check A1c (3) DVT prophylaxis Current Visit: Yes Status: Acute Assessment and plan: Heparin per protocol (4) Pacemaker Current Visit: Yes Status: Acute Assessment and plan: interrogate pacemaker (5) CAD (coronary artery disease) Current Visit: Yes Status: Chronic Assessment and plan: Resume home meds Qualifiers: Coronary Disease-Associated Artery/Lesion type: [place] artery [place] vs. transplanted heart: [place] heart Associated angina: without angina Qualified Code(s): I25.10 - Atherosclerotic heart disease of [place] coronary artery without angina pectoris (6) History of fall Current Visit: Yes Status: Acute Assessment and plan: fall protocol - Time Spent With Patient Total time spent is greater than 50% in coordination of care (as documented) at patient's floor/unit and/or counseling patient:
[2018-09-20] MEDS ORDERED: Furosemide 20 MG TABLET PO PRN (20:13)
[2018-09-20] MEDS: *HR* Heparin 5,000 UNIT/ML VIAL SQ SCH (21:35)
[2018-09-21 05:24] LABS: BUN/Creatinine Ratio 23 (6-26); Blood Urea Nitrogen 18 mg/dL (8-23); Calcium 8.9 mg/dL (8.6-10.3); Carbon Dioxide 22 mEq/L (23-29); Chloride 106 mEq/L (98-107); Glucose 200 mg/dL (70-105); Magnesium 1.8 mg/dL (1.6-2.6); Osmolality,Calculated 292 (280-300); Potassium 4.1 mEq/L (3.5-5.1); Sodium 137 mEq/L (136-145); eGFR For African Americans > 60 (> 60); eGFR For Non-African Americans > 60 (> 60)
[2018-09-21 05:36] LABS: Basophils % 0.5 %; Eosinophils # 0.2 K/mcL (0.0-0.6); Eosinophils % 4.2 %; Hematocrit 34.4 % (37.5-50.1); Hemoglobin 11.2 g/dL (12.9-16.9); Immature Granulocytes % 0.9 % (0-4); Lymphocytes # 0.8 K/mcL (0.6-4.6); Lymphocytes % 17.6 %; Mean Corpuscular HGB Conc 32.6 g/dL (31.6-35.5); Mean Corpuscular Hemoglobin 26.5 pg (28.0-33.3); Mean Corpuscular Volume 81.3 fL (83.0-100.0); Mean Platelet Volume 9.3 fL (9.4-12.4); Monocytes # 0.5 K/mcL (0.0-1.3); Monocytes % 10.8 %; Neutrophils # 2.8 K/mcL (1.6-8.9); Platelet Count 180 K/mcL (140-400); Red Blood Count 4.23 M/mcL (4.19-5.50); Red Cell Distribution Width 13.4 % (11.5-14.5); Thyroid Stimulating Hormone 1.061 mcIU/mL (0.340-5.600); White Blood Count 4.3 K/mcL (4.3-11.1)
[2018-09-21] MEDS: *HR* Heparin 5,000 UNIT/ML VIAL SQ SCH (05:59)
[2018-09-21] MEDS ORDERED: Cyanocobalamin (B-12) 1,000 MCG TABLET PO SCH (09:00)
[2018-09-21] MEDS ORDERED: Metoprolol XL (24 HR) Succ 25 MG TAB.ER.24H PO SCH (09:00)
[2018-09-21] MEDS ORDERED: Multivit/Ca/Min/Fe/FA 1 TAB TABLET PO SCH (09:00)
[2018-09-21] MEDS ORDERED: (Ezetimibe [Zetia] 10 MG) PO SCH (09:00)
[2018-09-21] MEDS ORDERED: Aspirin 81 MG TAB.CHEW PO SCH (09:00)
[2018-09-21] MEDS ORDERED: Insulin DETEMIR 100 UNIT/ML X5UNITS SQ SCH (09:00)
--- NOTE | 2018-09-21 10:03 | Internal Med Progress Note ---
Hospitalist Progress Note - Encounter Date of Encounter: 09/21/18 Time of Encounter: 10:03 - Exam Vitals: Temp Pulse Resp BP Pulse Ox 98.6 F 68 16 105/59 97 09/21/18 07:12 09/21/18 07:12 09/21/18 07:12 09/21/18 08:59 09/21/18 07:12 - Assessment and Plan (1) Pre-syncope Current Visit: Yes Status: Acute (2) IDDM (insulin dependent diabetes mellitus) Current Visit: Yes Status: Chronic (3) DVT prophylaxis Current Visit: Yes Status: Acute (4) Pacemaker Current Visit: Yes Status: Acute (5) CAD (coronary artery disease) Current Visit: Yes Status: Chronic (6) History of fall Current Visit: Yes Status: Acute - Time Spent with Patient Total time spent is greater than 50% in coordination of care (as documented) at patient's floor/unit and/or counseling patient: Internal Medicine: Result - Labs CBC & Chem 7: 09/21/18 04:05 09/21/18 04:05 Labs: Short CBC 09/20/18 09/21/18 Range/Units 13:24 04:05 WBC 6.0 4.3 (4.3-11.1) K/mcL Hgb 12.3 L 11.2 L (12.9-16.9) g/dL Hct 36.5 L 34.4 L (37.5-50.1) % Plt Count 225 180 (140-400) K/mcL Neutrophils # 4.5 2.8 (1.6-8.9) K/mcL BMP 09/20/18 09/21/18 13:24 04:05 Sodium 137 137 Potassium 4.2 4.1 Chloride 98 106 Carbon Dioxide 27 22 L BUN 24 H 18 Creatinine 1.06 0.80 Glucose 88 200 H Calcium 9.9 8.9 Cardiac Enzymes 09/20/18 Range/Units 14:53 Troponin I < 0.03 (< 0.04) ng/mL Liver Function 09/20/18 Range/Units 13:24 Total Bilirubin 0.5 (0.3-1.0) mg/dL AST 14 (13-39) Units/L ALT 9 (7-52) Units/L Alkaline Phosphatase 68 (34-104) Units/L Albumin 4.2 (3.5-5.7) g/dL Urine 09/20/18 Range/Units 16:56 Urine Color Yellow (Yellow) Urine Clarity Clear (Clear) Urine pH 6.0 (5.0-8.0) pH Units Ur Specific [place] 1.009 L (1.010-1.025) Urine Protein Negative (Neg-Trace) mg/dL Urine Glucose (UA) 250 H (Normal) mg/dL - ABG Interpretation ABG results: PT/INR, D-dimer PT 11.4 Seconds (9.4-12.1) 09/20/18 13:24 - Impressions Impressions Cervical Spine CT 09/20/18 13:16 IMPRESSION: No acute abnormality of the cervical spine. D/ / Raffi Tejeda MD / Raffi Tejeda MD Interpreting Provider: Raffi Tejeda MD Chest X-Ray 09/20/18 13:16 IMPRESSION: 1. Stable right pleural effusion with associated atelectasis in the right lung base. 2. No new lung infiltrates are identified. D/ : / 09/20/2018 13:58:31 Carlito Schuster MD / chapo Interpreting Provider: Carlito Schuster MD Head CT 09/20/18 13:16 IMPRESSION: No acute intracranial abnormality. Mild chronic microvascular ischemic change. D/ / 09/20/2018 14:33:49 Tu Lugo MD / kim Interpreting Provider: Tu Lugo MD Consult Discharge Plan - Plan Referrals: Mason Oliver Jr, MD [Primary Care Provider] - 09/27/18 12:00 pm (5) CAD (coronary artery disease) Qualifiers: Coronary Disease-Associated Artery/Lesion type: [place] artery [place] vs. transplanted heart: [place] heart Associated angina: without angina Qualified Code(s): I25.10 - Atherosclerotic heart disease of [place] coronary artery without angina pectoris
[2018-09-21 10:20] LABS: Estimated Average Glucose 326 mg/dl
--- NOTE | 2018-09-21 11:09 | Discharge Summary ---
- NOTES TO OUTPATIENT PROVIDER Notes to Outpatient Provider: Post hospital discharge for presyncope patient with known orthostatic blood pressure measurement, uncontrolled diabetes hemoglobin A1c is 13 Date of Encounter: 09/21/18 Time of Encounter: 09:45 - Discharge Diagnosis (1) Pre-syncope Priority: Primary Status: Acute Assessment and Plan: Patient with known history of syncope presents with history of multiple falls, suspect diabetic related autonomic dysfunction. Physical exam does reveal left carotid bruit is such a carotid duplex was negativ. It appears patient had recent echocardiogram . The echo department will try to obtain the records was reviewed to rule out 2019 revealed EF of 35% Za who also is a diabetic stated the patient recently was switched by ventricular pacemaker. Patient stated that he has been on midodrine since May 2018 but continues to have these presyncopal episodes. His orthostatic blood pressure measurement was positive 105/59 supine; 106/64 sitting; 74/41 standing while on midodrine hence high threshold for diabetic related autonomic dysfunction. Patient is a poorly controlled diabetic hemoglobin A1c today is 13. Discussed with patient and his that glycemic control is paramount to reduce further neurological decline. He does admits to diabetic polyneuropathy in his feet. Discussed also option of being seen at the [facility] autonomic dysfunction clinic given the patient has had biventricular pacemaker, on midodrine but continues to have symptoms and episodes. Patient also encouraged to keep a diary of his blood glucose measurement to rule out hypoglycemia as continued his falls. He is to check his blood sugar as soon as possible any subsequent falls (2) IDDM (insulin dependent diabetes mellitus) Priority: Primary Status: Chronic Assessment and Plan: Last an A1c was 12, repeat A1c is 13, he initially admits to been compliant, although today he admits to not being compliant in the presence of his who also is a diabetic. They both aramis on pastries. Will dc on both scheduled short and basal insulin (3) Ischemic cardiomyopathy Priority: Secondary Status: Acute Assessment and Plan: EF of 35% to patient has a by ventricular pacemaker inserted last month (4) DVT prophylaxis Priority: Secondary Status: Acute Assessment and Plan: dc todayl (5) Pacemaker Priority: Secondary Status: Acute Assessment and Plan: interrogate pacemaker (6) CAD (coronary artery disease) Priority: Secondary Status: Chronic Assessment and Plan: Resume home meds Qualifiers: Coronary Disease-Associated Artery/Lesion type: koi artery [place] vs. transplanted heart: koi heart Associated angina: without angina Qualified Code(s): I25.10 - Atherosclerotic heart disease of koi coronary artery witho ut angina pectoris (7) History of fall Priority: Secondary Status: Acute Assessment and Plan: fall protocol Hospital course: Mr. Vela is a 67 year old male with a known history of orthostatic blood pressure measurement, ischemic cardiac myopathy with an EF of 35, poorly controlled diabetic with hemoglobin A1c 13 last hemoglobin A1c was 12 noncompliant who was hospitalized after having several episodes of falls. Orthostatic blood pressure measurement here during his hospital stay was positive carotid duplex was negative although woke up including CT of the cervical spine head and chest x-ray was unremarkable. Discussed with patient and his importance of glycemic control today, dietary and medication compliance. Suspect diabetic-related autonomic dysfunction patient admits to diabetic polyneuropathy. He may benefit from referral to the autonomic dysf unction clinic at the [facility]. Discharge discussed with: patient, family - Time Spent with Patient Total time spent providing and/or coordinating discharge services:35 mins Specific discharge activities: Please adhere to the treatment plan check a blood sugar 3 times daily and at bedtime. Please taking medications as prescribed and talk to your primary care doctor regarding referral to the [facility] for autonomic dysfunction - Discharge Medications Prescriptions: New Syrge-Ndl,Ins 0.3 ml Half Ramiro [Insulin Syringe] 1 each MC TID #100 disp.syrin Insulin ASPART [Novolog] 10 unit SQ TIDWM 30 Days #15 ml Continued Aspirin 81 mg PO DAILY Ubidecarenone [Co Q10] 60 mg PO DAILY Insulin DETEMIR [Levemir] 50 unit SQ DAILY Clopidogrel [Plavix] 75 mg PO DAILY metFORMIN [Glucophage] 1,000 mg PO BIDWM Furosemide [Lasix] 20 mg PO DAILY PRN PRN Reason: Edema Metoprolol XL (24 HR) Succ [Toprol Xl] 12.5 mg PO DAILY Midodrine HCl 2.5 mg PO TID Ferrous Sulfate [Iron] 325 mg PO DAILY Ezetimibe [Zetia] 10 mg PO DAILY Cyanocobalamin (Vitamin B-12) [Vitamin B-12] 2,500 mcg SL DAILY Multivit-Min/Iron/Folic Acid/K [Adults Multivitamin Caplet] 1 each PO DAILY Discontinued Semaglutide [Ozempic] 0.25 mg SQ QWEEK Home Medications: Aspirin 81 mg PO DAILY 10/02/14 [History] Ubidecarenone [Co Q10] 60 mg PO DAILY 08/10/15 [History] Insulin DETEMIR [Levemir] 50 unit SQ DAILY 11/04/17 [History] Clopidogrel [Plavix] 75 mg PO DAILY 01/04/18 [History] metFORMIN [Glucophage] 1,000 mg PO BIDWM 01/04/18 [History] Ezetimibe [Zetia] 10 mg PO DAILY 08/26/18 [History] Ferrous Sulfate [Iron] 325 mg PO DAILY 08/26/18 [History] Furosemide [Lasix] 20 mg PO DAILY PRN 08/26/18 [History] Metoprolol XL (24 HR) Succ [Toprol Xl] 12.5 mg PO DAILY 08/26/18 [History] Midodrine HCl 2.5 mg PO TID 08/26/18 [History] Cyanocobalamin (Vitamin B-12) [Vitamin B-12] 2,500 mcg SL DAILY 09/20/18 [History] Multivit-Min/Iron/Folic Acid/K [Adults Multivitamin Caplet] 1 each PO DAILY 09/20/18 [History] Insulin ASPART [Novolog] 10 unit SQ TIDWM 30 Days #15 ml 09/21/18 [Rx] Syrge-Ndl,Ins 0.3 ml Half Ramiro [Insulin Syringe] 1 each MC TID #100 disp.syrin 09/21/18 [Rx] Allergies/Adverse Reactions: Allergy/AdvReac Type Severity Reaction Status Date / Time MADHAVI Inhibitors AdvReac Muscle Pain Verified 06/04/18 09:59 insulin glargine AdvReac Dizziness Verified 06/04/18 09:59 [From Basaglar KwikPen U-100 Insulin] Kqaqgtc-Rhq-Eja Reductase AdvReac Muscle Pain Verified 06/04/18 09:59 Inhibitor [Statins] Date of admission: 09/20/18 16:20 Primary care physician: Mason Oliver Jr, MD Consults: 09/21/18 08:30 Consult to Occupational Therapy [CONS] Routine Comment: Evaluate, develop and implement POC Reason for Consult: FALLS Does patient have active BEDREST order?: No Is patient medically & hemodynamically stable?: Yes Consult to Physical Therapy [CONS] Routine Comment: Evaluate, develop and implement POC Reason for Consult: FALLS Does patient have active BEDREST order?: No Is patient medically & hemodynamically stable?: Yes Discharging clinician: Burak Schmitz Anticipated date of discharge: 09/21/18 - Constitutional Vitals: Temp Pulse Resp BP Pulse Ox 98.6 F 68 16 105/59 97 09/21/18 07:12 09/21/18 07:12 09/21/18 07:12 09/21/18 08:59 09/21/18 07:12 Exam: GEN: NAD, A&O x 3, Pleasant and conversant, at bedside SKIN: [place] warm acyanotic not jaundice HEART: RRR, no murmurs LUNGS: CTA no wheeze or crackles, overall non labored ABDOMEN; Soft, non tender or distended, BS x 4 normactive EXT: No LE edema, Pedal pulses 1+, radial pulses 2+ PSYCH: Mood and affect is appropriate - Patient Status Disposition: Home, Self-Care Condition: Fair Functional capacity at discharge: independent ambulation Overall status at discharge: patient is back to baseline - Discharge Instructions Instructions: Diabetes Mellitus Type 2 in Adults (DC) Follow Up With: Mason Oliver Jr, MD [Primary Care Provider] - 09/27/18 12:00 pm - Diet and Activity Activity: ambulate only with your walker, resume usual activities as tolerated Diet: low fat, low cholesterol, low salt diet
[2018-09-21 11:20] VITALS: BP 174/88
--- NOTE | 2018-09-22 06:11 | Electrocardiograph Report ---
[facility] Test Date: 2018-09-20 Pat Name: uRi Vela Department: [id number] Room: 44 Gender: M Independent Beauty Consultant: : [id number] Requested By: [id number] Order Number: [id number] Reading MD: Anthony Magaña Measurements Intervals [place] Rate: 77 P: -2 NM: 187 QRS: 204 QRSD: 127 T: 86 QT: 398 QTc: 451 Interpretive Statements A-V dual-paced rhythm Electronically Signed On 09-22-2018 6:09:44 EDT by Anthony Magaña
== END 2018-09-21 14:05 | disposition home or self-care (01) ==
LOC: 3BNU 12:58 → EMEROOARM 12:58 → SUATTDRO 16:20 → 3BNU 17:25
PROVIDERS: ADMIT Pharmacist; ATTEND Pharmacist

== ENCOUNTER 2019-01-16 07:45 | Observation (INO) ==
[2019-01-16] MEDS ORDERED: Ondansetron 4 MG/2 ML VIAL IVP ONE (07:58)
[2019-01-16 08:09] LABS: Basophils % 0.6 %; Eosinophils # 0.2 K/mcL (0.0-0.6); Eosinophils % 3.4 %; Hematocrit 31.8 % (37.5-50.1); Immature Granulocytes % 0.8 % (0-4); Lymphocytes % 19.2 %; Mean Corpuscular HGB Conc 34.6 g/dL (31.6-35.5); Mean Corpuscular Hemoglobin 26.4 pg (28.0-33.3); Mean Corpuscular Volume 76.4 fL (83.0-100.0); Mean Platelet Volume 8.7 fL (9.4-12.4); Monocytes # 0.6 K/mcL (0.0-1.3); Monocytes % 11.9 %; Neutrophils # 3.2 K/mcL (1.6-8.9); Platelet Count 213 K/mcL (140-400); Red Blood Count 4.16 M/mcL (4.19-5.50); Segmented Neutrophils % 64.1 %; White Blood Count 5.1 K/mcL (4.3-11.1)
[2019-01-16 08:24] LABS: Alanine Aminotransferase 9 Units/L (7-52); Albumin 3.4 g/dL (3.5-5.7); Albumin/Globulin Ratio 1.5 (1.1-2.2); Alkaline Phosphatase 60 Units/L (34-104); Aspartate Amino Transferase 11 Units/L (13-39); BUN/Creatinine Ratio 25 (6-26); Bilirubin,Direct 0.1 mg/dL (0.0-0.2); Bilirubin,Indirect 0.3 mg/dL (0.0-1.0); Bilirubin,Total 0.4 mg/dL (0.3-1.0); Blood Urea Nitrogen 26 mg/dL (8-23); Calcium 8.5 mg/dL (8.6-10.3); Carbon Dioxide 17 mEq/L (23-29); Chloride 109 mEq/L (98-107); Globulin 2.3 g/dL (2.4-3.5); Glucose 103 mg/dL (70-105); Osmolality,Calculated 293 (280-300); Potassium 3.1 mEq/L (3.5-5.1); Sodium 139 mEq/L (136-145); Total Protein 5.7 g/dL (6.4-8.9); eGFR For African Americans > 60 (> 60); eGFR For Non-African Americans > 60 (> 60)
[2019-01-16 08:25] LABS: Troponin I 0.03 ng/mL (< 0.04)
[2019-01-16] MEDS ORDERED: Potassium Chloride 40 MEQ, Lidocaine 1% 2 ML in 0.9 % Sodium Chloride 500 ML IVPB ONE (10:33)
[2019-01-16] MEDS ORDERED: Ondansetron 4 MG/2 ML VIAL IVP PRN (11:45)
[2019-01-16] MEDS ORDERED: Naloxone 0.4 MG/ML INJ IVP PRN (11:45)
[2019-01-16] MEDS ORDERED: 0.9 % Sodium Chloride 1,000 ML IVC SCH (11:45)
[2019-01-16] MEDS ORDERED: Dextrose Gel 15 GM/37.5 ML TUBE PO PRN ×2 (11:48)
[2019-01-16] MEDS ORDERED: *HR* Dextrose 50 % in Water (Syg) 50 ML SYRINGE IVP PRN (11:48)
[2019-01-16] MEDS ORDERED: D5% in Water 1,000 ML IVC PRN (11:48)
[2019-01-16 14:00] LABS: Magnesium 1.7 mg/dL (1.6-2.6)
[2019-01-16 16:32] LABS: Bilirubin,Urine Negative (Negative); Blood,Urine Negative (Negative); Clarity,Urine Clear (Clear); Color,Urine Yellow (Yellow); Glucose,Urine (UA) >=1000 mg/dL (Normal); Ketones,Urine Negative (Negative); Leukocyte Esterase,Urine Negative (Negative); Nitrite,Urine Negative (Negative); PH,Urine 5.5 pH Units (5.0-8.0); Protein,Urine Trace mg/dL (Neg-Trace); Specific Gravity,Urine 1.025 (1.010-1.025); Urobilinogen,Urine Normal (Normal)
[2019-01-16] MEDS: Insulin LISPRO 300 UNITS/3 ML VIAL SQ SCH (17:12)
[2019-01-16] MEDS ORDERED: Insulin DETEMIR 100 UNIT/ML X5UNITS SQ SCH (21:00)
[2019-01-17] MEDS ORDERED: *HR* Enoxaparin 40 MG/0.4 ML SYRINGE SQ SCH (06:00)
[2019-01-17 06:27] LABS: Basophils % 0.4 %; Eosinophils # 0.2 K/mcL (0.0-0.6); Eosinophils % 3.5 %; Hematocrit 32.1 % (37.5-50.1); Immature Granulocytes % 0.4 % (0-4); Lymphocytes # 0.7 K/mcL (0.6-4.6); Lymphocytes % 13.3 %; Mean Corpuscular HGB Conc 34.3 g/dL (31.6-35.5); Mean Corpuscular Hemoglobin 26.6 pg (28.0-33.3); Mean Corpuscular Volume 77.5 fL (83.0-100.0); Mean Platelet Volume 9.4 fL (9.4-12.4); Monocytes # 0.4 K/mcL (0.0-1.3); Monocytes % 8.4 %; Neutrophils # 3.6 K/mcL (1.6-8.9); Platelet Count 228 K/mcL (140-400); Red Blood Count 4.14 M/mcL (4.19-5.50); Red Cell Distribution Width 13.3 % (11.5-14.5); White Blood Count 4.9 K/mcL (4.3-11.1)
[2019-01-17 06:59] LABS: BUN/Creatinine Ratio 21 (6-26); Blood Urea Nitrogen 24 mg/dL (8-23); Carbon Dioxide 25 mEq/L (23-29); Chloride 102 mEq/L (98-107); Glucose 347 mg/dL (70-105); Magnesium 1.8 mg/dL (1.6-2.6); Osmolality,Calculated 300 (280-300); Potassium 4.5 mEq/L (3.5-5.1); Sodium 136 mEq/L (136-145); eGFR For African Americans > 60 (> 60); eGFR For Non-African Americans > 60 (> 60)
[2019-01-17] MEDS ORDERED: Aspirin 81 MG TAB.CHEW PO SCH (09:00)
[2019-01-17] MEDS ORDERED: Metoprolol XL (24 HR) Succ 25 MG TAB.ER.24H PO SCH (09:00)
[2019-01-17] MEDS ORDERED: (Ezetimibe [Zetia] 10 MG) PO SCH (09:00)
[2019-01-17] MEDS ORDERED: Multivit/Ca/Min/Fe/FA 1 TAB TABLET PO SCH (09:00)
[2019-01-17] MEDS ORDERED: Cyanocobalamin (B-12) 1,000 MCG TABLET PO SCH (09:00)
[2019-01-17] MEDS ORDERED: Perflutren Lipid Microsphere 1.3 ML in 0.9 % Sodium Chloride 8.7 ML IVP ONE (09:42)
[2019-01-17] MEDS ORDERED: Perflutren Lipid Microsphere 2 ML VIAL ONE (09:44)
[2019-01-17] MEDS: Insulin LISPRO 300 UNITS/3 ML VIAL SQ SCH ×2 (10:35→13:00)
[2019-01-17] MEDS ORDERED: Insulin LISPRO 300 UNITS/3 ML VIAL SQ SCH (12:00)
[2019-01-17 12:15] VITALS: BP 165/80
[2019-01-17] MEDS ORDERED: Insulin DETEMIR 100 UNIT/ML X5UNITS SQ SCH (21:00)
== END 2019-01-17 16:48 | disposition home or self-care (01) ==
LOC: EMEROOARM 07:45 → 3BNU 07:45
PROVIDERS: ADMIT Internal Medicine; ATTEND Internal Medicine

== ENCOUNTER 2020-10-11 14:44 | Inpatient (IN) ==
[2020-10-11] MEDS ORDERED: 0.9 % Sodium Chloride 1,000 ML IVC ONE (15:00)
[2020-10-11] MEDS ORDERED: cefTRIAXone 2,000 MG in Water for inj. (sterile) 10 ML IVP ONE (15:01)
[2020-10-11 15:27] LABS: VBG HCO3 26 mEq/L (21-27); VBG PCO2 45 mmHg (41-51); VBG PH 7.37 pH Units (7.32-7.42); VBG PO2 23 mmHg (25-50)
[2020-10-11 15:28] LABS: Hematocrit 38.3 % (37.5-50.1); Hemoglobin 12.6 g/dL (12.9-16.9); Mean Corpuscular HGB Conc 32.9 g/dL (31.6-35.5); Mean Corpuscular Hemoglobin 25.7 pg (28.0-33.3); Platelet Count 147 K/mcL (140-400); Red Blood Count 4.91 M/mcL (4.19-5.50); Red Cell Distribution Width 14.3 % (11.5-14.5); Segmented Neutrophils % 91.4 %; White Blood Count 10.1 K/mcL (4.3-11.1)
[2020-10-11 15:29] LABS: Immature Granulocytes % 1.2 % (0-4); Lymphocytes # 0.2 K/mcL (0.6-4.6); Lymphocytes % 2.2 %; Monocytes # 0.5 K/mcL (0.0-1.3); Monocytes % 5.2 %
[2020-10-11 15:38] LABS: INR 1.2; Prothrombin Time 13.6 Seconds (9.4-12.1)
[2020-10-11 15:44] LABS: Neutrophils # 9.2 K/mcL (1.6-8.9)
[2020-10-11 16:03] LABS: Platelet Estimate Normal (Normal)
[2020-10-11 16:08] LABS: Alanine Aminotransferase 9 Units/L (7-52); Albumin 3.5 g/dL (3.5-5.7); Albumin/Globulin Ratio 1.3 (1.1-2.2); Alkaline Phosphatase 77 Units/L (34-104); Aspartate Amino Transferase 17 Units/L (13-39); BUN/Creatinine Ratio 13 (6-26); Bilirubin,Direct 0.2 mg/dL (0.0-0.2); Bilirubin,Indirect 0.9 mg/dL (0.0-1.0); Bilirubin,Total 1.1 mg/dL (0.3-1.0); Blood Urea Nitrogen 15 mg/dL (8-23); Calcium 8.8 mg/dL (8.6-10.3); Carbon Dioxide 26 mEq/L (23-29); Chloride 92 mEq/L (98-107); Globulin 2.7 g/dL (2.4-3.5); Glucose 263 mg/dL (70-105); Magnesium 1.4 mg/dL (1.6-2.6); Osmolality,Calculated 274 (280-300); Phosphorous 1.2 mg/dL (2.7-4.5); Potassium 3.9 mEq/L (3.5-5.1); Sodium 127 mEq/L (136-145); Total Protein 6.2 g/dL (6.4-8.9); Troponin I 0.83 ng/mL (< 0.04); eGFR For African Americans > 60 (> 60); eGFR For Non-African Americans > 60 (> 60)
[2020-10-11] MEDS ORDERED: Isovue-370 500 ML BOTTLE IVP ONE (16:23)
[2020-10-11 16:24] LABS: Lipase < 3 Units/L (11-82)
[2020-10-11 18:08] LABS: Amorphous Sediment,Urine Few per hpf (None-Few); Bacteria,Urine Few per hpf (None-Few); Bilirubin,Urine Negative (Negative); Blood,Urine Small (Negative); Clarity,Urine Clear (Clear); Color,Urine Yellow (Yellow); Glucose,Urine (UA) >=1000 mg/dL (Normal); Ketones,Urine 20 mg/dL (Negative); Leukocyte Esterase,Urine Negative (Negative); Mucus,Urine Few per lpf (None-Few); Nitrite,Urine Negative (Negative); Protein,Urine 50 mg/dL (Neg-Trace); Specific Gravity,Urine > 1.030 (1.010-1.025); Squamous Epithelial Cell,Urine Few per hpf (None-Few); Urobilinogen,Urine Normal (Normal); WBC,Urine 0-3 per hpf (0-3)
[2020-10-11] MEDS ORDERED: *HR* Heparin 5,000 UNIT/ML VIAL IVP PRN ×2 (18:17)
[2020-10-11] MEDS ORDERED: *HR* Heparin 5,000 UNIT/ML VIAL IVP ONE (18:17)
[2020-10-11] MEDS ORDERED: Heparin 25,000UNIT/250ML 1/2NS 25,000 UNIT/250 ML IV.SOLN IVC SCH (18:30)
[2020-10-11] MEDS ORDERED: Vancomycin 1,500 MG/265 ML IV.SOLN IVPB ONE (19:00)
[2020-10-11] MEDS ORDERED: 0.9 % Sodium Chloride 1,000 ML IV ONE (20:14)
[2020-10-11] MEDS ORDERED: Acetaminophen 325 MG TABLET PO PRN (22:14)
[2020-10-11] MEDS ORDERED: Dextrose Gel 15 GM/37.5 ML TUBE PO PRN ×2 (22:14)
[2020-10-11] MEDS ORDERED: Ondansetron 4 MG/2 ML VIAL IVP PRN (22:14)
[2020-10-11] MEDS ORDERED: *HR* Dextrose 50 % in Water (Vial) 50 ML VIAL IVP PRN (22:14)
[2020-10-11] MEDS ORDERED: Naloxone 0.4 MG/ML INJ IVP PRN (22:14)
[2020-10-11] MEDS ORDERED: D5% in Water 1,000 ML IVC PRN (22:14)
[2020-10-11] MEDS ORDERED: 0.9 % Sodium Chloride 1,000 ML IVC SCH (22:15)
[2020-10-11] MEDS ORDERED: Cefepime HCl 2,000 MG in Water for inj. (sterile) 10 ML IVP SCH (22:22)
[2020-10-11] MEDS ORDERED: Aspirin 325 MG TABLET PO ONE (22:23)
[2020-10-11] MEDS ORDERED: Insulin DETEMIR 100 UNIT/ML X5UNITS SUBQ SCH (22:30)
[2020-10-11] MEDS ORDERED: Perflutren Lipid Microsphere 1.3 ML in 0.9 % Sodium Chloride 8.7 ML IVP PRN (22:34)
[2020-10-11] MEDS ORDERED: 0.9 % Sodium Chloride 500 ML IVC ONE (23:08)
[2020-10-11] MEDS: Insulin LISPRO 300 UNITS/3 ML VIAL SUBQ SCH (23:29)
[2020-10-12] MEDS ORDERED: Norepinephrine 4 MG/254 ML IV.SOLN IVC SCH ×2 (01:45→22:15)
[2020-10-12 02:47] LABS: Acinetobacter baumannii by PCR Not Detected (Not Detect); Candida albicans by PCR Not Detected (Not Detect); Candida glabrata by PCR Not Detected (Not Detect); Candida krusei by PCR Not Detected (Not Detect); Candida parapsilosis by PCR Not Detected (Not Detect); Candida tropicalis by PCR Not Detected (Not Detect); Enterobacter cloacae Cmplx PCR Not Detected (Not Detect); Enterobacteriaceae by PCR Not Detected (Not Detect); Enterococcus by PCR Not Detected (Not Detect); Escherichia coli by PCR Not Detected (Not Detect); Klebsiella oxytoca by PCR Not Detected (Not Detect); Klebsiella pneumoniae by PCR Not Detected (Not Detect); Proteus by PCR Not Detected (Not Detect); Pseudomonas aeruginosa by PCR Not Detected (Not Detect); Serratia marcescens by PCR Not Detected (Not Detect); Staphylococcus aureus by PCR DETECTED (Not Detect); Staphylococcus by PCR Not Detected (Not Detect); Streptococcus agalactiae(B)PCR Not Detected (Not Detect); Streptococcus by PCR Not Detected (Not Detect); Streptococcus pneumoniae PCR Not Detected (Not Detect); Streptococcus pyogenes (A) PCR Not Detected (Not Detect); mecA Methicillin-Resist Gene Not Detected (Not Detect)
[2020-10-12 04:42] LABS: Basophils % 0.1 %; Immature Granulocytes % 1.5 % (0-4); Lymphocytes # 0.4 K/mcL (0.6-4.6); Lymphocytes % 3.4 %; Mean Corpuscular HGB Conc 32.8 g/dL (31.6-35.5); Mean Corpuscular Hemoglobin 26.1 pg (28.0-33.3); Mean Corpuscular Volume 79.4 fL (83.0-100.0); Mean Platelet Volume 10.1 fL (9.4-12.4); Monocytes % 8.6 %; Platelet Count 154 K/mcL (140-400); Red Blood Count 4.03 M/mcL (4.19-5.50); Red Cell Distribution Width 14.5 % (11.5-14.5); Segmented Neutrophils % 86.4 %
[2020-10-12 05:03] LABS: BUN/Creatinine Ratio 16 (6-26); Blood Urea Nitrogen 22 mg/dL (8-23); Calcium 7.9 mg/dL (8.6-10.3); Carbon Dioxide 22 mEq/L (23-29); Chloride 97 mEq/L (98-107); Glucose 177 mg/dL (70-105); Magnesium 2.4 mg/dL (1.6-2.6); Osmolality,Calculated 274 (280-300); Phosphorous 2.2 mg/dL (2.7-4.5); Sodium 128 mEq/L (136-145); eGFR For African Americans > 60 (> 60); eGFR For Non-African Americans 53 (> 60)
[2020-10-12 05:05] LABS: Hemoglobin 10.5 g/dL (12.9-16.9); Neutrophils # 10.4 K/mcL (1.6-8.9)
[2020-10-12] MEDS: Insulin LISPRO 300 UNITS/3 ML VIAL SUBQ SCH ×3 (05:14→18:43)
[2020-10-12 05:15] LABS: Platelet Estimate Normal (Normal)
[2020-10-12] MEDS ORDERED: *HR* Dextrose 50 % in Water (Vial) 50 ML VIAL IVP PRN (07:28)
[2020-10-12] MEDS ORDERED: *HR* Heparin 5,000 UNIT/ML VIAL IVP PRN ×2 (07:28)
[2020-10-12] MEDS ORDERED: 0.9 % Sodium Chloride 1,000 ML IVC SCH (07:28)
[2020-10-12] MEDS ORDERED: Naloxone 0.4 MG/ML INJ IVP PRN (07:28)
[2020-10-12] MEDS ORDERED: Heparin 25,000UNIT/250ML 1/2NS 25,000 UNIT/250 ML IV.SOLN IVC SCH (07:28)
[2020-10-12] MEDS ORDERED: Dextrose Gel 15 GM/37.5 ML TUBE PO PRN ×2 (07:28)
[2020-10-12] MEDS ORDERED: Acetaminophen 325 MG TABLET PO PRN (07:28)
[2020-10-12] MEDS ORDERED: D5% in Water 1,000 ML IVC PRN (07:28)
[2020-10-12] MEDS ORDERED: Perflutren Lipid Microsphere 1.3 ML in 0.9 % Sodium Chloride 8.7 ML IVP PRN ×2 (07:28→13:24)
[2020-10-12] MEDS ORDERED: Ondansetron 4 MG/2 ML VIAL IVP PRN (07:28)
[2020-10-12] MEDS: Vancomycin 1,250 MG/262.5 ML IV.SOLN IVPB SCH ×2 (09:18→22:06)
[2020-10-12] MEDS: Cefepime HCl 2,000 MG in Water for inj. (sterile) 10 ML IVP SCH ×2 (09:52→22:07)
[2020-10-12] MEDS ORDERED: Vancomycin 1,250 MG/262.5 ML IV.SOLN IVPB SCH (10:00)
[2020-10-12 11:42] LABS: C-Reactive Protein 297 mg/L (Less than 10)
[2020-10-12] MEDS: *HR* Heparin 5,000 UNIT/ML VIAL SQ SCH ×2 (13:56→22:07)
[2020-10-12 14:39] LABS: VBG Ionized Calcium 1.09 mmol/L (1.15-1.35)
[2020-10-12 14:43] LABS: Calcium 7.4 mg/dL (8.6-10.3); Magnesium 2.4 mg/dL (1.6-2.6); Phosphorous 5.5 mg/dL (2.7-4.5); Potassium 3.7 mEq/L (3.5-5.1)
[2020-10-12 15:40] LABS: Troponin I 0.86 ng/mL (< 0.04)
[2020-10-12] MEDS ORDERED: Insulin DETEMIR 100 UNIT/ML X5UNITS SUBQ SCH (21:00)
[2020-10-13] MEDS: *HR* Heparin 5,000 UNIT/ML VIAL SQ SCH ×3 (05:10→21:05)
[2020-10-13] MEDS: Insulin LISPRO 300 UNITS/3 ML VIAL SUBQ SCH ×5 (05:18→22:52)
[2020-10-13 05:57] LABS: Basophils % 0.2 %; Calcium 7.7 mg/dL (8.6-10.3); Eosinophils # 0.1 K/mcL (0.0-0.6); Eosinophils % 1.4 %; Hematocrit 31.5 % (37.5-50.1); Hemoglobin 10.4 g/dL (12.9-16.9); Immature Granulocytes % 0.5 % (0-4); Lymphocytes # 0.5 K/mcL (0.6-4.6); Lymphocytes % 5.2 %; Magnesium 2.4 mg/dL (1.6-2.6); Mean Corpuscular Volume 78.8 fL (83.0-100.0); Mean Platelet Volume 10.2 fL (9.4-12.4); Monocytes # 1.1 K/mcL (0.0-1.3); Monocytes % 11.7 %; Neutrophils # 7.7 K/mcL (1.6-8.9); Platelet Count 158 K/mcL (140-400); Potassium 3.8 mEq/L (3.5-5.1); Red Cell Distribution Width 15.1 % (11.5-14.5); White Blood Count 9.5 K/mcL (4.3-11.1)
[2020-10-13 06:28] LABS: Platelet Estimate Normal (Normal)
[2020-10-13] MEDS: Vancomycin 1,250 MG/262.5 ML IV.SOLN IVPB SCH (10:04)
[2020-10-13] MEDS: Cefepime HCl 2,000 MG in Water for inj. (sterile) 10 ML IVP SCH (10:05)
[2020-10-13 10:21] LABS: Troponin I 0.61 ng/mL (< 0.04)
[2020-10-13] MEDS: Albumin Human 5% 12.5 GM/250 ML IV.SOLN IVC SCH ×2 (13:17→17:27)
[2020-10-13] MEDS ORDERED: Piperacillin/Tazobactam 3.375 GM in 0.9 % Sodium Chloride Mini Bag 100 ML IVPB SCH (16:00)
[2020-10-13] MEDS ORDERED: D5% in Water 1,000 ML IVC PRN (19:56)
[2020-10-13] MEDS ORDERED: Dextrose Gel 15 GM/37.5 ML TUBE PO PRN ×2 (19:56)
[2020-10-13] MEDS ORDERED: Acetaminophen 325 MG TABLET PO PRN (19:56)
[2020-10-13] MEDS ORDERED: Naloxone 0.4 MG/ML INJ IVP PRN (19:56)
[2020-10-13] MEDS ORDERED: *HR* Dextrose 50 % in Water (Vial) 50 ML VIAL IVP PRN (19:56)
[2020-10-13 19:57] LABS: Bacteria,Urine Few per hpf (None-Few); Bilirubin,Urine Negative (Negative); Blood,Urine Small (Negative); Clarity,Urine Turbid (Clear); Color,Urine Yellow (Yellow); Glucose,Urine (UA) Normal (Normal); Ketones,Urine 10 mg/dL (Negative); Leukocyte Esterase,Urine Negative (Negative); Nitrite,Urine Negative (Negative); PH,Urine 5.5 pH Units (5.0-8.0); Protein,Urine 30 mg/dL (Neg-Trace); Specific Gravity,Urine 1.019 (1.010-1.025); Squamous Epithelial Cell,Urine Few per hpf (None-Few); Urobilinogen,Urine Normal (Normal)
[2020-10-13 20:06] LABS: Creatinine,Urine 87 mg/dL
[2020-10-13] MEDS ORDERED: Aspirin Enteric Coated 81 MG Tablet PO SCH (21:00)
[2020-10-13] MEDS: Insulin DETEMIR 100 UNIT/ML X5UNITS SUBQ SCH (21:06)
[2020-10-14] MEDS: Piperacillin/Tazobactam 3.375 GM in 0.9 % Sodium Chloride Mini Bag 100 ML IVPB SCH ×4 (00:02→23:59)
[2020-10-14 04:53] LABS: Basophils % 0.3 %; Eosinophils # 0.2 K/mcL (0.0-0.6); Eosinophils % 2.4 %; Hemoglobin 9.4 g/dL (12.9-16.9); Immature Granulocytes % 0.6 % (0-4); Lymphocytes # 0.4 K/mcL (0.6-4.6); Mean Corpuscular HGB Conc 33.6 g/dL (31.6-35.5); Mean Corpuscular Hemoglobin 26.3 pg (28.0-33.3); Mean Corpuscular Volume 78.4 fL (83.0-100.0); Mean Platelet Volume 10.6 fL (9.4-12.4); Monocytes # 0.8 K/mcL (0.0-1.3); Monocytes % 12.4 %; Neutrophils # 5.3 K/mcL (1.6-8.9); Platelet Count 119 K/mcL (140-400); Red Blood Count 3.57 M/mcL (4.19-5.50); Red Cell Distribution Width 14.7 % (11.5-14.5); Segmented Neutrophils % 78.3 %; White Blood Count 6.7 K/mcL (4.3-11.1)
[2020-10-14 05:07] LABS: Calcium 7.7 mg/dL (8.6-10.3); Magnesium 2.3 mg/dL (1.6-2.6); Potassium 3.7 mEq/L (3.5-5.1)
[2020-10-14 05:48] LABS: Platelet Estimate Normal (Normal)
[2020-10-14] MEDS: *HR* Heparin 5,000 UNIT/ML VIAL SQ SCH ×3 (06:39→20:19)
[2020-10-14] MEDS: Insulin LISPRO 300 UNITS/3 ML VIAL SUBQ SCH ×3 (06:39→16:38)
[2020-10-14] MEDS: Multivit/Ca/Min/Fe/FA 1 TAB TABLET PO SCH (09:42)
[2020-10-14] MEDS: Ondansetron 4 MG/2 ML VIAL IVP PRN (10:03)
[2020-10-14] MEDS ORDERED: Furosemide 40 MG/4 ML VIAL IVP ONE (15:37)
[2020-10-14] MEDS: Insulin DETEMIR 100 UNIT/ML X5UNITS SUBQ SCH (20:19)
[2020-10-15] MEDS: Insulin LISPRO 300 UNITS/3 ML VIAL SUBQ SCH ×4 (01:50→16:48)
[2020-10-15] MEDS: *HR* Heparin 5,000 UNIT/ML VIAL SQ SCH ×3 (06:48→19:54)
[2020-10-15] MEDS: Multivit/Ca/Min/Fe/FA 1 TAB TABLET PO SCH (08:19)
[2020-10-15] MEDS: Piperacillin/Tazobactam 3.375 GM in 0.9 % Sodium Chloride Mini Bag 100 ML IVPB SCH ×2 (08:20→15:48)
[2020-10-15] MEDS ORDERED: Multivit/Ca/Min/Fe/FA 1 TAB TABLET PO SCH (09:00)
[2020-10-15 11:12] LABS: Calcium 8.2 mg/dL (8.6-10.3); Magnesium 2.5 mg/dL (1.6-2.6); Potassium 3.8 mEq/L (3.5-5.1)
[2020-10-15 13:31] LABS: Basophils # 0.1 K/mcL (0.0-0.2); Basophils % 0.7 %; Eosinophils # 0.2 K/mcL (0.0-0.6); Eosinophils % 2.9 %; Hematocrit 32.9 % (37.5-50.1); Hemoglobin 10.5 g/dL (12.9-16.9); Immature Granulocytes % 1.7 % (0-4); Lymphocytes # 0.4 K/mcL (0.6-4.6); Lymphocytes % 5.7 %; Mean Corpuscular HGB Conc 31.9 g/dL (31.6-35.5); Mean Corpuscular Hemoglobin 25.5 pg (28.0-33.3); Mean Corpuscular Volume 79.9 fL (83.0-100.0); Mean Platelet Volume 10.6 fL (9.4-12.4); Monocytes # 0.6 K/mcL (0.0-1.3); Monocytes % 8.8 %; Neutrophils # 5.5 K/mcL (1.6-8.9); Platelet Count 170 K/mcL (140-400); Red Blood Count 4.12 M/mcL (4.19-5.50); Red Cell Distribution Width 15.3 % (11.5-14.5); Segmented Neutrophils % 80.2 %; White Blood Count 6.9 K/mcL (4.3-11.1)
[2020-10-15] MEDS ORDERED: levoFLOXacin 750 MG/150 ML 750 MG/150 ML BAG IVPB SCH (19:00)
[2020-10-15] MEDS: Insulin DETEMIR 100 UNIT/ML X5UNITS SUBQ SCH (19:55)
[2020-10-16] MEDS: Insulin LISPRO 300 UNITS/3 ML VIAL SUBQ SCH ×5 (00:54→23:53)
[2020-10-16] MEDS: CeFAZolin 2,000 MG/120 ML BAG IVPB SCH ×4 (00:55→23:54)
[2020-10-16] MEDS: *HR* Heparin 5,000 UNIT/ML VIAL SQ SCH ×3 (05:23→20:16)
[2020-10-16 06:51] LABS: Basophils % 0.6 %; Eosinophils # 0.2 K/mcL (0.0-0.6); Eosinophils % 2.8 %; Hematocrit 28.5 % (37.5-50.1); Hemoglobin 9.6 g/dL (12.9-16.9); Immature Granulocytes % 4.9 % (0-4); Lymphocytes # 0.4 K/mcL (0.6-4.6); Mean Corpuscular HGB Conc 33.7 g/dL (31.6-35.5); Mean Corpuscular Hemoglobin 26.5 pg (28.0-33.3); Mean Corpuscular Volume 78.7 fL (83.0-100.0); Mean Platelet Volume 9.8 fL (9.4-12.4); Monocytes # 0.8 K/mcL (0.0-1.3); Monocytes % 11.9 %; Neutrophils # 4.8 K/mcL (1.6-8.9); Platelet Count 163 K/mcL (140-400); Red Blood Count 3.62 M/mcL (4.19-5.50); Red Cell Distribution Width 15.4 % (11.5-14.5); Segmented Neutrophils % 73.8 %; White Blood Count 6.5 K/mcL (4.3-11.1)
[2020-10-16 07:09] LABS: Calcium 7.9 mg/dL (8.6-10.3); Magnesium 2.5 mg/dL (1.6-2.6)
[2020-10-16] MEDS: Aspirin Enteric Coated 81 MG Tablet PO SCH (09:15)
[2020-10-16] MEDS: Multivit/Ca/Min/Fe/FA 1 TAB TABLET PO SCH (09:16)
[2020-10-16] MEDS: Ondansetron 4 MG/2 ML VIAL IVP PRN (09:39)
[2020-10-16 11:09] LABS: Adenovirus Not Detected (Not Detect); Bordetella Pertussis Not Detected (Not Detect); Chlamydophila pneumoniae Not Detected (Not Detect); Coronavirus 229E Not Detected (Not Detect); Coronavirus HKU1 Not Detected (Not Detect); Coronavirus NL63 Not Detected (Not Detect); Coronavirus OC43 Not Detected (Not Detect); Human Metapneumovirus Not Detected (Not Detect); Human Rhinovirus/Enterovirus Not Detected (Not Detect); Influenza A Subtype 2009 H1 Not Detected (Not Detect); Influenza B Not Detected (Not Detect); Mycoplasma pneumoniae Not Detected (Not Detect); Parainfluenza Virus 1 Not Detected (Not Detect); Parainfluenza Virus 2 Not Detected (Not Detect); Parainfluenza Virus 3 Not Detected (Not Detect); Parainfluenza Virus 4 Not Detected (Not Detect); Respiratory Syncytial Virus Not Detected (Not Detect); SARS-CoV-2 Not Detected (Not Detect)
[2020-10-16] MEDS ORDERED: *HR* Alteplase (Cathflo) 2 MG VIAL IVP ONE (11:50)
[2020-10-16] MEDS: Insulin DETEMIR 100 UNIT/ML X5UNITS SUBQ SCH (20:16)
[2020-10-17 01:22] LABS: Magnesium 2.3 mg/dL (1.6-2.6); Potassium 4.4 mEq/L (3.5-5.1)
[2020-10-17 02:00] LABS: Hematocrit 31.1 % (37.5-50.1); Hemoglobin 10.1 g/dL (12.9-16.9); Mean Corpuscular HGB Conc 32.5 g/dL (31.6-35.5); Mean Corpuscular Hemoglobin 25.9 pg (28.0-33.3); Mean Platelet Volume 9.7 fL (9.4-12.4); Monocytes # 0.7 K/mcL (0.0-1.3); Platelet Count 217 K/mcL (140-400); Red Cell Distribution Width 15.9 % (11.5-14.5); White Blood Count 6.6 K/mcL (4.3-11.1)
[2020-10-17 02:17] LABS: Mean Corpuscular Volume 79.7 fL (83.0-100.0)
[2020-10-17 02:56] LABS: Hypochromasia Present (Not Present); Lymphocytes # 0.8 K/mcL (0.6-4.6); Neutrophils # 4.6 K/mcL (1.6-8.9); Platelet Estimate Normal (Normal); Toxic Granulation Present (Not Present)
[2020-10-17] MEDS: Insulin LISPRO 300 UNITS/3 ML VIAL SUBQ SCH ×3 (05:26→18:31)
[2020-10-17] MEDS: *HR* Heparin 5,000 UNIT/ML VIAL SQ SCH ×3 (05:27→21:15)
[2020-10-17] MEDS: Multivit/Ca/Min/Fe/FA 1 TAB TABLET PO SCH (08:12)
[2020-10-17] MEDS: Aspirin Enteric Coated 81 MG Tablet PO SCH (08:12)
[2020-10-17] MEDS ORDERED: Lidocaine Viscous Oral Soln 15 ML SOLUTION MM PRN (11:03)
[2020-10-17] MEDS ORDERED: *HR* FentaNYL (PF) 100 MCG/2 ML VIAL IVP PRN (11:03)
[2020-10-17] MEDS ORDERED: 0.9 % Sodium Chloride 500 ML IVC ONE (11:04)
[2020-10-17] MEDS ORDERED: *HR* Midazolam HCl 2 MG/2 ML VIAL IVP PRN (11:17)
[2020-10-17] MEDS ORDERED: *HR* Midazolam HCl 5 MG/5 ML VIAL IVP ONE ×2 (11:20→11:21)
[2020-10-17] MEDS: CeFAZolin 2,000 MG/120 ML BAG IVPB SCH (15:18)
[2020-10-17] MEDS ORDERED: levoFLOXacin 750 MG TABLET PO SCH (19:00)
[2020-10-17] MEDS ORDERED: Insulin DETEMIR 100 UNIT/ML X5UNITS SUBQ SCH (21:00)
[2020-10-18] MEDS: CeFAZolin 2,000 MG/120 ML BAG IVPB SCH (00:39)
[2020-10-18] MEDS: Insulin LISPRO 300 UNITS/3 ML VIAL SUBQ SCH ×2 (01:14→05:48)
[2020-10-18 03:21] VITALS: BP 140/60; PULSE 77; TEMP 98.2; O2SAT 95
[2020-10-18] MEDS: *HR* Heparin 5,000 UNIT/ML VIAL SQ SCH (05:47)
[2020-10-18 06:43] LABS: Basophils # 0.1 K/mcL (0.0-0.2); Basophils % 0.9 %; Eosinophils # 0.2 K/mcL (0.0-0.6); Eosinophils % 2.7 %; Hematocrit 30.3 % (37.5-50.1); Hemoglobin 9.7 g/dL (12.9-16.9); Immature Granulocytes % 11.6 % (0-4); Lymphocytes # 0.5 K/mcL (0.6-4.6); Lymphocytes % 8.7 %; Mean Corpuscular Hemoglobin 25.9 pg (28.0-33.3); Mean Platelet Volume 9.5 fL (9.4-12.4); Monocytes # 0.6 K/mcL (0.0-1.3); Monocytes % 10.5 %; Neutrophils # 3.7 K/mcL (1.6-8.9); Nucleated Red Blood Cells 0.4 /100 WBC (0); Platelet Count 248 K/mcL (140-400); Red Blood Count 3.74 M/mcL (4.19-5.50); Red Cell Distribution Width 15.8 % (11.5-14.5); Segmented Neutrophils % 65.6 %; White Blood Count 5.6 K/mcL (4.3-11.1)
[2020-10-18 07:08] LABS: BUN/Creatinine Ratio 20 (6-26); Blood Urea Nitrogen 24 mg/dL (8-23); Calcium 8.2 mg/dL (8.6-10.3); Carbon Dioxide 26 mEq/L (23-29); Chloride 103 mEq/L (98-107); Glucose 229 mg/dL (70-105); Osmolality,Calculated 289 (280-300); Potassium 4.1 mEq/L (3.5-5.1); Sodium 134 mEq/L (136-145); eGFR For African Americans > 60 (> 60); eGFR For Non-African Americans 59 (> 60)
[2020-10-18 07:15] LABS: Platelet Estimate Normal (Normal); Toxic Granulation Present (Not Present)
== END 2020-10-18 07:00 | disposition short-term general hospital (02) | DRG 871 ==
LOC: EMEROOARM 14:44 → 2NENU 14:44 → SUATTDRO 23:51 → ICNU 10-12 01:45 → 2ANU 10-14 14:02
PROVIDERS: ADMIT Student in an Organized Health Care Education/Training Program; ATTEND Student in an Organized Health Care Education/Training Program

== ENCOUNTER 2021-01-12 20:44 | Inpatient (IN) ==
[2021-01-12 22:47] LABS: Basophils % 0.3 %; Eosinophils # 0.2 K/mcL (0.0-0.6); Eosinophils % 1.8 %; Hematocrit 39.6 % (37.5-50.1); Hemoglobin 12.8 g/dL (12.9-16.9); Immature Granulocytes % 0.4 % (0-4); Lymphocytes # 0.6 K/mcL (0.6-4.6); Lymphocytes % 5.1 %; Mean Corpuscular HGB Conc 32.3 g/dL (31.6-35.5); Mean Corpuscular Hemoglobin 26.1 pg (28.0-33.3); Mean Corpuscular Volume 80.8 fL (83.0-100.0); Mean Platelet Volume 9.3 fL (9.4-12.4); Monocytes # 0.6 K/mcL (0.0-1.3); Monocytes % 5.2 %; Neutrophils # 10.3 K/mcL (1.6-8.9); Platelet Count 218 K/mcL (140-400); Red Cell Distribution Width 14.2 % (11.5-14.5); Segmented Neutrophils % 87.2 %; White Blood Count 11.8 K/mcL (4.3-11.1)
[2021-01-12 22:55] LABS: INR 1.4; Prothrombin Time 15.5 Seconds (9.4-12.1)
[2021-01-12 22:57] LABS: Activated Partial Thrombo Time 42.8 Seconds (26.0-36.0)
[2021-01-12 23:07] LABS: Alanine Aminotransferase 13 Units/L (7-52); Albumin 4.4 g/dL (3.5-5.7); Albumin/Globulin Ratio 1.4 (1.1-2.2); Alkaline Phosphatase 86 Units/L (34-104); Aspartate Amino Transferase 22 Units/L (13-39); BUN/Creatinine Ratio 25 (6-26); Bilirubin,Total 0.7 mg/dL (0.3-1.0); Blood Urea Nitrogen 34 mg/dL (8-23); Calcium 9.9 mg/dL (8.6-10.3); Carbon Dioxide 28 mEq/L (23-29); Chloride 96 mEq/L (98-107); Globulin 3.2 g/dL (2.4-3.5); Glucose 256 mg/dL (70-105); Osmolality,Calculated 296 (280-300); Potassium 4.8 mEq/L (3.5-5.1); Sodium 135 mEq/L (136-145); Total Protein 7.6 g/dL (6.4-8.9); eGFR For African Americans > 60 (> 60); eGFR For Non-African Americans 52 (> 60)
[2021-01-13] MEDS ORDERED: *HR* OxyCODONE Immed Rel 5 MG TABLET PO PRN (04:39)
[2021-01-13] MEDS ORDERED: Ondansetron ODT 4 MG TAB.RAPDIS SL PRN (04:39)
[2021-01-13] MEDS ORDERED: *HR* HYDROcodone/Acet 5/325 mg TABLET PO PRN (04:39)
[2021-01-13] MEDS ORDERED: Acetaminophen 325 MG TABLET PO PRN (04:39)
[2021-01-13] MEDS ORDERED: Naloxone 0.4 MG/ML INJ IVP PRN (04:39)
[2021-01-13] MEDS ORDERED: Melatonin 3 MG TABLET PO PRN (04:39)
[2021-01-13] MEDS ORDERED: *HR* Dextrose 50 % in Water (Syg) 50 ML SYRINGE IVP PRN (12:44)
[2021-01-13] MEDS ORDERED: D5% in Water 1,000 ML IVC PRN (12:44)
[2021-01-13] MEDS ORDERED: Dextrose Gel 15 GM/37.5 ML TUBE PO PRN ×2 (12:44)
[2021-01-13] MEDS: Insulin LISPRO 300 UNITS/3 ML VIAL SUBQ SCH (16:12)
[2021-01-13 18:49] LABS: Basophils % 0.5 %; Eosinophils # 0.5 K/mcL (0.0-0.6); Eosinophils % 7.9 %; Hematocrit 31.9 % (37.5-50.1); Immature Granulocytes % 0.7 % (0-4); Lymphocytes # 0.6 K/mcL (0.6-4.6); Lymphocytes % 9.7 %; Mean Corpuscular HGB Conc 33.9 g/dL (31.6-35.5); Mean Corpuscular Hemoglobin 27.2 pg (28.0-33.3); Mean Corpuscular Volume 80.4 fL (83.0-100.0); Mean Platelet Volume 9.3 fL (9.4-12.4); Monocytes # 0.6 K/mcL (0.0-1.3); Monocytes % 9.4 %; Neutrophils # 4.4 K/mcL (1.6-8.9); Platelet Count 193 K/mcL (140-400); Red Blood Count 3.97 M/mcL (4.19-5.50); Segmented Neutrophils % 71.8 %; White Blood Count 6.1 K/mcL (4.3-11.1)
[2021-01-13 18:50] LABS: Hemoglobin 10.8 g/dL (12.9-16.9)
[2021-01-13 19:08] LABS: BUN/Creatinine Ratio 28 (6-26); Blood Urea Nitrogen 38 mg/dL (8-23); Calcium 9.3 mg/dL (8.6-10.3); Carbon Dioxide 27 mEq/L (23-29); Chloride 99 mEq/L (98-107); Glucose 271 mg/dL (70-105); Osmolality,Calculated 295 (280-300); Potassium 4.1 mEq/L (3.5-5.1); Sodium 133 mEq/L (136-145); eGFR For African Americans > 60 (> 60); eGFR For Non-African Americans 52 (> 60)
[2021-01-13] MEDS ORDERED: Insulin DETEMIR 100 UNIT/ML X5UNITS SUBQ SCH (21:00)
[2021-01-14 05:25] LABS: Magnesium 1.9 mg/dL (1.6-2.6); Phosphorous 3.3 mg/dL (2.7-4.5)
[2021-01-14] MEDS: Aspirin Enteric Coated 81 MG Tablet PO SCH (08:13)
[2021-01-14] MEDS: Insulin LISPRO 300 UNITS/3 ML VIAL SUBQ SCH ×6 (08:14→17:05)
[2021-01-14] MEDS: Insulin DETEMIR 100 UNIT/ML X5UNITS SUBQ SCH ×2 (08:18→20:41)
[2021-01-14] MEDS: Metoprolol XL (24 HR) Succ 25 MG TAB.ER.24H PO SCH ×2 (11:43→20:41)
[2021-01-14] MEDS: Apixaban 5 MG TABLET PO SCH ×2 (11:43→20:41)
[2021-01-15] MEDS: Furosemide 40 MG TABLET PO SCH (07:58)
[2021-01-15] MEDS: Metoprolol XL (24 HR) Succ 25 MG TAB.ER.24H PO SCH ×2 (07:58→19:42)
[2021-01-15] MEDS: Aspirin Enteric Coated 81 MG Tablet PO SCH (07:58)
[2021-01-15] MEDS: Apixaban 5 MG TABLET PO SCH ×2 (07:58→19:42)
[2021-01-15] MEDS: Insulin LISPRO 300 UNITS/3 ML VIAL SUBQ SCH ×6 (07:59→18:13)
[2021-01-15] MEDS: Insulin DETEMIR 100 UNIT/ML X5UNITS SUBQ SCH ×2 (08:03→19:42)
[2021-01-15] MEDS ORDERED: NON-FORMULARY MEDICATION 1 EACH EACH (Ezetimibe 10 MG Tablet) PO SCH (09:00)
[2021-01-16 05:10] LABS: BUN/Creatinine Ratio 36 (6-26); Blood Urea Nitrogen 41 mg/dL (8-23); Calcium 8.9 mg/dL (8.6-10.3); Carbon Dioxide 24 mEq/L (23-29); Chloride 102 mEq/L (98-107); Glucose 169 mg/dL (70-105); Magnesium 1.9 mg/dL (1.6-2.6); Osmolality,Calculated 294 (280-300); Phosphorous 4.1 mg/dL (2.7-4.5); Potassium 4.1 mEq/L (3.5-5.1); Sodium 135 mEq/L (136-145); eGFR For African Americans > 60 (> 60); eGFR For Non-African Americans > 60 (> 60)
[2021-01-16] MEDS: Apixaban 5 MG TABLET PO SCH (08:50)
[2021-01-16] MEDS: Aspirin Enteric Coated 81 MG Tablet PO SCH (08:50)
[2021-01-16] MEDS: Furosemide 40 MG TABLET PO SCH (08:51)
[2021-01-16] MEDS: Insulin LISPRO 300 UNITS/3 ML VIAL SUBQ SCH ×4 (08:52→12:26)
[2021-01-16] MEDS: Insulin DETEMIR 100 UNIT/ML X5UNITS SUBQ SCH (08:55)
[2021-01-16] MEDS: Metoprolol XL (24 HR) Succ 25 MG TAB.ER.24H PO SCH (09:02)
[2021-01-16 12:05] VITALS: BP 132/60; PULSE 51; TEMP 97.5; O2SAT 96
== END 2021-01-16 15:35 | DRG 291 ==
LOC: 4WAOSI 20:44 → EMEROOARM 20:44 → SUATTDRO 01-13 04:14 → 4WAOSI 01-13 05:41 → SUATTDRO 01-15 14:59
PROVIDERS: ADMIT Internal Medicine; ATTEND Internal Medicine

== ENCOUNTER 2021-01-18 17:20 | Inpatient (IN) ==
[2021-01-18] MEDS ORDERED: 0.9 % Sodium Chloride 1,000 ML IVC ONE (18:05)
[2021-01-18 19:02] LABS: Basophils % 0.5 %; Eosinophils # 0.3 K/mcL (0.0-0.6); Hematocrit 33.7 % (37.5-50.1); Hemoglobin 10.8 g/dL (12.9-16.9); Immature Granulocytes % 0.8 % (0-4); Lymphocytes # 0.7 K/mcL (0.6-4.6); Lymphocytes % 10.6 %; Mean Corpuscular Hemoglobin 26.1 pg (28.0-33.3); Mean Corpuscular Volume 81.4 fL (83.0-100.0); Mean Platelet Volume 9.5 fL (9.4-12.4); Monocytes # 0.8 K/mcL (0.0-1.3); Monocytes % 12.5 %; Neutrophils # 4.5 K/mcL (1.6-8.9); Platelet Count 212 K/mcL (140-400); Red Blood Count 4.14 M/mcL (4.19-5.50); Red Cell Distribution Width 14.1 % (11.5-14.5); Segmented Neutrophils % 70.6 %; White Blood Count 6.4 K/mcL (4.3-11.1)
[2021-01-18 19:13] LABS: INR 1.3; Prothrombin Time 14.1 Seconds (9.4-12.1)
[2021-01-18 19:16] LABS: Activated Partial Thrombo Time 37.6 Seconds (26.0-36.0)
[2021-01-18 19:25] LABS: BUN/Creatinine Ratio 27 (6-26); Blood Urea Nitrogen 38 mg/dL (8-23); Calcium 8.9 mg/dL (8.6-10.3); Carbon Dioxide 26 mEq/L (23-29); Chloride 96 mEq/L (98-107); Glucose 289 mg/dL (70-105); Osmolality,Calculated 292 (280-300); Potassium 4.6 mEq/L (3.5-5.1); Sodium 131 mEq/L (136-145); Troponin I < 0.03 ng/mL (< 0.04); eGFR For African Americans 60 (> 60); eGFR For Non-African Americans 49 (> 60)
[2021-01-18 20:33] LABS: Bilirubin,Urine Negative (Negative); Blood,Urine Negative (Negative); Clarity,Urine Clear (Clear); Color,Urine Light-Yellow (Yellow); Glucose,Urine (UA) 200 mg/dL (Normal); Hyaline Casts,Urine Moderate per lpf (None Seen); Ketones,Urine Negative (Negative); Leukocyte Esterase,Urine Negative (Negative); Mucus,Urine Few per lpf (None-Few); Nitrite,Urine Negative (Negative); PH,Urine 5.5 pH Units (5.0-8.0); Protein,Urine Negative (Neg-Trace); RBC,Urine 0-3 per hpf (0-3); Specific Gravity,Urine 1.012 (1.010-1.025); Squamous Epithelial Cell,Urine Few per hpf (None-Few); Urobilinogen,Urine Normal (Normal); WBC,Urine 0-3 per hpf (0-3)
[2021-01-18] MEDS ORDERED: Furosemide 40 MG/4 ML VIAL IVP ONE (21:38)
[2021-01-18] MEDS ORDERED: Dextrose Gel 15 GM/37.5 ML TUBE PO PRN ×2 (23:45)
[2021-01-18] MEDS ORDERED: D5% in Water 1,000 ML IVC PRN (23:45)
[2021-01-18] MEDS ORDERED: *HR* Dextrose 50 % in Water (Syg) 50 ML SYRINGE IVP PRN (23:45)
[2021-01-18] MEDS ORDERED: Sennosides/Docusate Sodium TABLET PO PRN (23:45)
[2021-01-18] MEDS ORDERED: Naloxone 0.4 MG/ML INJ IVP PRN (23:49)
[2021-01-18] MEDS ORDERED: Ondansetron 4 MG/2 ML VIAL IVP PRN (23:49)
[2021-01-19] MEDS: Melatonin 3 MG TABLET PO SCH ×2 (00:39→21:34)
[2021-01-19 00:47] LABS: Hematocrit 34.1 % (37.5-50.1); Hemoglobin 11.3 g/dL (12.9-16.9); Mean Corpuscular HGB Conc 33.1 g/dL (31.6-35.5); Mean Corpuscular Hemoglobin 26.8 pg (28.0-33.3); Mean Corpuscular Volume 80.8 fL (83.0-100.0); Mean Platelet Volume 9.3 fL (9.4-12.4); Platelet Count 240 K/mcL (140-400); Red Blood Count 4.22 M/mcL (4.19-5.50); Red Cell Distribution Width 14.1 % (11.5-14.5); White Blood Count 6.4 K/mcL (4.3-11.1)
[2021-01-19 01:01] LABS: BUN/Creatinine Ratio 29 (6-26); Blood Urea Nitrogen 36 mg/dL (8-23); Calcium 8.9 mg/dL (8.6-10.3); Carbon Dioxide 25 mEq/L (23-29); Chloride 99 mEq/L (98-107); Chol/HDL Ratio 5.7 (0-4.9); Cholesterol 126 mg/dL (< 200); Glucose 200 mg/dL (70-105); HDL Cholesterol 22 mg/dL (40-59); LDL Cholesterol,Calculated 82 mg/dL (< 100); Magnesium 1.9 mg/dL (1.6-2.6); Osmolality,Calculated 288 (280-300); Potassium 4.5 mEq/L (3.5-5.1); Sodium 132 mEq/L (136-145); Triglycerides 112 mg/dL (< 150); eGFR For African Americans > 60 (> 60); eGFR For Non-African Americans 57 (> 60)
[2021-01-19 01:02] LABS: Iron 31 mcg/dL (65-175)
[2021-01-19 01:16] LABS: INR 1.2
[2021-01-19 01:18] LABS: Activated Partial Thrombo Time 37.5 Seconds (26.0-36.0)
[2021-01-19 01:19] LABS: Ferritin 84 ng/mL (20-250)
[2021-01-19 01:21] LABS: Influenza A PCR Negative (Negative); Influenza B PCR Negative (Negative); Resp. Syncytial Virus PCR Negative (Negative)
[2021-01-19 01:23] LABS: SARS-CoV-2 by PCR (In House) Negative (Negative)
[2021-01-19 01:38] LABS: Folate > 22.3 ng/mL (3.0-16.0); Vitamin B12 1357 pg/mL (250-1100)
[2021-01-19] MEDS ORDERED: Furosemide 20 MG/2 ML VIAL IVP SCH (08:00)
[2021-01-19] MEDS ORDERED: Metoprolol XL (24 HR) Succ 25 MG TAB.ER.24H PO SCH (09:00)
[2021-01-19] MEDS: Insulin LISPRO 300 UNITS/3 ML VIAL SUBQ SCH ×2 (11:14→11:19)
[2021-01-19] MEDS: Apixaban 5 MG TABLET PO SCH ×2 (11:23→21:33)
[2021-01-19] MEDS: Aspirin Enteric Coated 81 MG Tablet PO SCH (11:24)
[2021-01-19] MEDS: Multivit/Ca/Min/Fe/FA 1 TAB TABLET PO SCH (11:24)
[2021-01-19] MEDS: EZETIMIBE 10 MG PO SCH (11:25)
[2021-01-19] MEDS ORDERED: Furosemide 20 MG/2 ML VIAL IVP ONE (12:45)
[2021-01-19 13:06] LABS: Estimated Average Glucose 194 mg/dl; Hemoglobin A1C 8.4 %
[2021-01-19] MEDS ORDERED: Insulin LISPRO 300 UNITS/3 ML VIAL SUBQ SCH (21:00)
[2021-01-19 22:23] LABS: Hematocrit 34.4 % (37.5-50.1); Hemoglobin 11.2 g/dL (12.9-16.9); Mean Corpuscular HGB Conc 32.6 g/dL (31.6-35.5); Mean Corpuscular Hemoglobin 26.2 pg (28.0-33.3); Mean Corpuscular Volume 80.6 fL (83.0-100.0); Mean Platelet Volume 9.2 fL (9.4-12.4); Platelet Count 214 K/mcL (140-400); Red Blood Count 4.27 M/mcL (4.19-5.50); Red Cell Distribution Width 14.1 % (11.5-14.5); White Blood Count 6.8 K/mcL (4.3-11.1)
[2021-01-19 22:34] LABS: BUN/Creatinine Ratio 27 (6-26); Blood Urea Nitrogen 38 mg/dL (8-23); Carbon Dioxide 27 mEq/L (23-29); Chloride 99 mEq/L (98-107); Glucose 217 mg/dL (70-105); Osmolality,Calculated 292 (280-300); Potassium 4.9 mEq/L (3.5-5.1); Sodium 133 mEq/L (136-145); eGFR For African Americans > 60 (> 60); eGFR For Non-African Americans 50 (> 60)
[2021-01-19 22:35] LABS: Troponin I < 0.03 ng/mL (< 0.04)
[2021-01-20] MEDS: Insulin LISPRO 300 UNITS/3 ML VIAL SUBQ SCH ×5 (01:18→21:19)
[2021-01-20] MEDS ORDERED: Furosemide 40 MG/4 ML VIAL IVP SCH (09:00)
[2021-01-20] MEDS: Multivit/Ca/Min/Fe/FA 1 TAB TABLET PO SCH (10:47)
[2021-01-20] MEDS: Apixaban 5 MG TABLET PO SCH ×2 (10:47→21:19)
[2021-01-20] MEDS: Aspirin Enteric Coated 81 MG Tablet PO SCH (10:47)
[2021-01-20] MEDS: EZETIMIBE 10 MG PO SCH (10:48)
[2021-01-20] MEDS: *HR* HYDROcodone/Acet 5/325 mg TABLET PO PRN ×2 (15:33→21:38)
[2021-01-20 17:33] LABS: Basophils % 0.5 %; Eosinophils # 0.3 K/mcL (0.0-0.6); Eosinophils % 4.6 %; Hematocrit 33.4 % (37.5-50.1); Hemoglobin 10.9 g/dL (12.9-16.9); Immature Granulocytes % 0.9 % (0-4); Lymphocytes # 0.5 K/mcL (0.6-4.6); Lymphocytes % 8.1 %; Mean Corpuscular HGB Conc 32.6 g/dL (31.6-35.5); Mean Corpuscular Hemoglobin 26.1 pg (28.0-33.3); Mean Corpuscular Volume 80.1 fL (83.0-100.0); Mean Platelet Volume 9.5 fL (9.4-12.4); Monocytes # 0.6 K/mcL (0.0-1.3); Platelet Count 241 K/mcL (140-400); Red Blood Count 4.17 M/mcL (4.19-5.50); Segmented Neutrophils % 76.9 %; White Blood Count 6.5 K/mcL (4.3-11.1)
[2021-01-20 17:53] LABS: Alanine Aminotransferase 7 Units/L (7-52); Albumin 3.5 g/dL (3.5-5.7); Albumin/Globulin Ratio 1.3 (1.1-2.2); Alkaline Phosphatase 69 Units/L (34-104); Aspartate Amino Transferase 12 Units/L (13-39); BUN/Creatinine Ratio 32 (6-26); Bilirubin,Total 0.3 mg/dL (0.3-1.0); Blood Urea Nitrogen 43 mg/dL (8-23); Calcium 9.1 mg/dL (8.6-10.3); Carbon Dioxide 26 mEq/L (23-29); Chloride 99 mEq/L (98-107); Globulin 2.6 g/dL (2.4-3.5); Glucose 220 mg/dL (70-105); Osmolality,Calculated 294 (280-300); Sodium 133 mEq/L (136-145); Total Protein 6.1 g/dL (6.4-8.9); eGFR For African Americans > 60 (> 60); eGFR For Non-African Americans 52 (> 60)
[2021-01-20] MEDS: Melatonin 3 MG TABLET PO SCH (21:19)
[2021-01-21 02:41] LABS: Basophils # 0.1 K/mcL (0.0-0.2); Basophils % 0.8 %; Eosinophils # 0.3 K/mcL (0.0-0.6); Eosinophils % 5.1 %; Hematocrit 32.5 % (37.5-50.1); Hemoglobin 10.5 g/dL (12.9-16.9); Immature Granulocytes % 1.2 % (0-4); Lymphocytes # 0.6 K/mcL (0.6-4.6); Lymphocytes % 10.7 %; Mean Corpuscular HGB Conc 32.3 g/dL (31.6-35.5); Mean Corpuscular Hemoglobin 26.1 pg (28.0-33.3); Mean Corpuscular Volume 80.8 fL (83.0-100.0); Mean Platelet Volume 9.6 fL (9.4-12.4); Monocytes # 0.7 K/mcL (0.0-1.3); Monocytes % 11.2 %; Neutrophils # 4.2 K/mcL (1.6-8.9); Platelet Count 227 K/mcL (140-400); Red Blood Count 4.02 M/mcL (4.19-5.50); White Blood Count 5.9 K/mcL (4.3-11.1)
[2021-01-21 02:59] LABS: Albumin 3.4 g/dL (3.5-5.7); Albumin/Globulin Ratio 1.4 (1.1-2.2); Bilirubin,Total 0.3 mg/dL (0.3-1.0); Calcium 8.9 mg/dL (8.6-10.3); Globulin 2.5 g/dL (2.4-3.5); Potassium 5.1 mEq/L (3.5-5.1); Total Protein 5.9 g/dL (6.4-8.9)
[2021-01-21] MEDS: Multivit/Ca/Min/Fe/FA 1 TAB TABLET PO SCH (08:57)
[2021-01-21] MEDS: Aspirin Enteric Coated 81 MG Tablet PO SCH (08:57)
[2021-01-21] MEDS: Apixaban 5 MG TABLET PO SCH ×2 (08:57→21:28)
[2021-01-21] MEDS: EZETIMIBE 10 MG PO SCH (08:58)
[2021-01-21] MEDS: Insulin LISPRO 300 UNITS/3 ML VIAL SUBQ SCH ×4 (08:59→21:29)
[2021-01-21] MEDS ORDERED: Furosemide 40 MG/4 ML VIAL IVP SCH (09:00)
[2021-01-21 18:56] LABS: Influenza A PCR Negative (Negative); Influenza B PCR Negative (Negative); Resp. Syncytial Virus PCR Negative (Negative); SARS-CoV-2 by PCR (In House) Negative (Negative)
[2021-01-21] MEDS: Melatonin 3 MG TABLET PO SCH (21:28)
[2021-01-22 07:25] VITALS: BP 115/57; PULSE 71; TEMP 98.2; O2SAT 95
[2021-01-22] MEDS: Apixaban 5 MG TABLET PO SCH (08:26)
[2021-01-22] MEDS: Insulin LISPRO 300 UNITS/3 ML VIAL SUBQ SCH (08:26)
[2021-01-22] MEDS: Aspirin Enteric Coated 81 MG Tablet PO SCH (08:26)
[2021-01-22] MEDS: Multivit/Ca/Min/Fe/FA 1 TAB TABLET PO SCH (08:26)
[2021-01-22] MEDS: EZETIMIBE 10 MG PO SCH (08:27)
[2021-01-22] MEDS ORDERED: Furosemide 40 MG TABLET PO SCH (09:00)
[2021-01-23 07:11] LABS: % Iron Saturation 12 % (20-55); Transferrin 180 mg/dL (200-400)
== END 2021-01-22 12:13 | DRG 291 ==
LOC: 3BNU 17:20 → EMEROOARM 17:20 → 3BNU 23:31
PROVIDERS: ADMIT Internal Medicine; ATTEND Internal Medicine